=== PATIENT | female | born 1970 | race Hispanic/Latino ===

== ENCOUNTER 2019-10-28 21:43 | Emergency (ER) | payer SELFPAY ==
--- NOTE | 2019-10-28 23:40 | EDPHYS ---
Physician Documentation [facility] Name: Maine Stewart Age: 49 yrs Sex: Female : 1970 Arrival Date: 10/28/2019 Time: 21:49 Bed 3 Private MD: ED Physician Finn Lopez HPI: 10/27 21:53 This 49 yrs old Female presents to ER via Ambulatory with complaints of Covid jmm Symptoms. 21:53 The patient or guardian reports cough, described as moderate. Onset: The jmm symptoms/episode began/occurred gradually, 5 day(s) ago. Modifying factors: The symptoms are alleviated by nothing. the symptoms are aggravated by nothing. Associated signs and symptoms: Pertinent positives: fever. This is a 49 year old female with no chronic medical conditions that presents to the ED with complaints of cough, congestion, shortness of breath beginning approx 5 days ago. Denies vomiting or diarrhea. . 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 - Social history:: Smoking status: Patient denies any tobacco usage or history of. ROS: 21:53 Abdomen/GI: Negative for abdominal pain, nausea, vomiting, diarrhea, and constipation, jmm Neuro: Negative for headache, weakness, numbness, tingling, and seizure. 21:53 Constitutional: Positive for fever. 21:53 Respiratory: Positive for cough, shortness of breath. 21:53 All other systems are negative. Exam: 21:53 Constitutional: This is a well developed, well nourished patient who is awake, alert, jmm and in no acute distress. Head/Face: atraumatic. Eyes: EOMI, no conjunctival erythema appreciated ENT: Moist Mucus Membranes Neck: Trachea midline, Supple Chest/axilla: Normal chest wall appearance and motion. Cardiovascular: Regular rate and rhythm. No edema appreciated Respiratory: Normal respirations, no respiratory distress appreciated Abdomen/GI: Non distended, soft Back: Normal ROM Skin: General appearance color normal MS/ Extremity: Moves all extremities, no obvious deformities appreciated, no edema noted to the lower extremities Neuro: Awake and alert, normal gait Psych: Behavior is normal, Mood is normal, Patient is cooperative and pleasant Vital Signs: 21:53 BP 166 / 80; Pulse 81; Resp 15 S; Temp 97.7(TE); Pulse Ox 100% on NC; Weight 58.97 kg ca1 (R); Height 5 ft. 2 in. (157.48 cm) (R); 23:56 BP 157 / 87; Pulse 76; Resp 16; Temp 98; Pulse Ox 99% on R/A; rv 21:53 Body Mass Index 23.78 (58.97 kg, 157.48 cm) ca1 MDM: 23:19 Patient medically screened. [facility] 23:39 Data reviewed: vital signs, nurses notes. Counseling: I had a detailed discussion with otis the patient and/or guardian regarding: the historical points, exam findings, and any diagnostic results supporting the discharge/admit diagnosis, the need for outpatient follow up, to return to the emergency department if symptoms worsen or persist or if there are any questions or concerns that arise at home. 23:59 ED course: Patient is alert and non toxic in appearance in the ED. No signs of resp jmm distress. VS wnl. Patient given strict return precautions. Patient understood and agrees with the plan of care. . 10/27 23:20 Order name: CITLALI otis Administered Medications: No medications were administered Disposition: 10/28 01:40 Co-signature as Attending Physician, Finn Lopez MD. [email or web address] Disposition: 10/28/19 23:40 Discharged to Home. Impression: Viral Respiratory Illness. - Condition is Stable. - Discharge Instructions: [id number]. - Medication Reconciliation Form, Thank You Letter, Antibiotic Education, Prescription Opioid Use, Work release form form. - Follow up: Private Physician; When: 2 - 3 days; Reason: Recheck today's complaints, Continuance of care, Re-evaluation by your physician. Signatures: Dispatcher [employer] EDMS Aric Gaines PA PA jmm Vicente, Ronaldo, RN RN rv Maria L Stovall RN RN ca1 Finn Lopez MD MD [email or web address] Corrections: (The following items were deleted from the chart) 10/27 23:56 23:40 10/28/2019 23:40 Discharged to Home. Impression: Viral Respiratory Illness. rv Condition is Stable. Forms are Medication Reconciliation Form, Thank You Letter, Antibiotic Education, Prescription Opioid Use. Follow up: Private Physician; When: 2 - 3 days; Reason: Recheck today's complaints, Continuance of care, Re-evaluation by your physician. otis
--- NOTE | 2019-10-28 23:40 | ER ---
Nurse's Notes [facility] Name: Maine Stewart Age: 49 yrs Sex: Female : 1970 Arrival Date: 10/28/2019 Time: 21:49 Bed 3 Private MD: Diagnosis: Viral Respiratory Illness Presentation: 10/27 21:53 Chief complaint: Patient states: Sick since Thursday. SOB, no sense of smell and taste, ca1 cough, headache and body aches. Fever last night Htemp 101.4F. Coronavirus screen: Patient reports a cough. Patient reports shortness of breath or difficulty breathing. Patient reports a measured and/or subjective temperature greater than 100.4F. Patient denies travel on a cruise ship or to a country the [facility] currently lists as an affected area. Patient denies contact with known and/or suspected case of COVID-19. Surgical mask in place. Instructed on keeping mask at all times and keep 6 feet distance from other people in the lobby. Verbalized understanding. Ebola Screen: Patient negative for fever greater than or equal to 101.5 degrees Fahrenheit, and additional compatible Ebola Virus Disease symptoms Patient denies exposure to infectious person. Patient denies travel to an Ebola-affected area in the 21 days before illness onset. No symptoms or risks identified at this time. Initial Sepsis Screen: Does the patient meet any 2 criteria? No. Patient's initial sepsis screen is negative. Does the patient have a suspected source of infection? No. Patient's initial sepsis screen is negative. Risk Assessment: Do you want to hurt yourself or someone else? Patient reports no desire to harm self or others. Onset of symptoms was October 28, 2019. 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 - Social history:: Smoking status: Patient denies any tobacco usage or history of. Screenin:07 Abuse screen: Denies threats or abuse. Denies injuries from another. Nutritional rv screening: No deficits noted. Tuberculosis screening: No symptoms or risk factors identified. Fall Risk None identified. Assessment: 23:07 General: Appears comfortable, Behavior is calm, cooperative. Pain: Denies pain. Neuro: rv Level of Consciousness is awake, alert, obeys commands, Oriented to person, place, time, situation. Cardiovascular: Patient's skin is warm and dry. Respiratory: Airway is patent Respiratory effort is even, unlabored, Respiratory pattern is regular, symmetrical, Breath sounds are clear bilaterally. Derm: Skin is intact. Vital Signs: 21:53 BP 166 / 80; Pulse 81; Resp 15 S; Temp 97.7(TE); Pulse Ox 100% on NC; Weight 58.97 kg ca1 (R); Height 5 ft. 2 in. (157.48 cm) (R); 23:56 BP 157 / 87; Pulse 76; Resp 16; Temp 98; Pulse Ox 99% on R/A; rv 21:53 Body Mass Index 23.78 (58.97 kg, 157.48 cm) ca1 ED Course: 21:49 Patient arrived in ED. ds1 21:55 Triage completed. ca1 21:55 Arm band placed on right wrist. ca1 22:50 Aric Gaines PA is PHCP. [facility] 22:50 Finn Lopez MD is Attending Physician. [facility] 23:07 Nehemiah Valentin, CARLITOS is Primary Nurse. rv 23:08 Patient has correct armband on for positive identification. Pulse ox on. NIBP on. rv 23:56 Assist provider with bone marrow aspiration. Patient did not have IV access during this emergency room visit. Administered Medications: No medications were administered Outcome: 23:40 Discharge ordered by . [facility] 23:56 Discharged to home ambulatory. rv 23:56 Condition: good 23:56 Discharge instructions given to patient, Instructed on discharge instructions, follow up and referral plans. Demonstrated understanding of instructions, follow-up care. 23:56 Patient left the ED. rv Addendum: 11/02/2019 10:41 Addendum: COVID-19 Result: Positive result giiven to ED physician to notify pt. francie salazar Physician: Oli Ramos MD Physician was able to contact pt and pt was notified of positive COVID-19 swab result. Physician answered pt questions. Signatures: Lara Leigh, RN RN dm5 Aric Gaines PA PA jmm Sanford, Demi ds1 Nehemiah Valentin, RN RN rv AcobMaria L, RN RN ca1
[2019-10-29 00:33] VITALS: BP 157/87; TEMP 98; O2SAT 99
== END 2019-10-28 23:56 | disposition home or self-care (01) ==
LOC: ER 21:43
DX: U07.1 COVID-19 (principal); J98.8 Other specified respiratory disorders
CPT/HCPCS: 99284; U0001

== ENCOUNTER 2019-12-31 21:27 | Emergency (ER) | payer SELFPAY ==
[2019-12-31 22:02] LABS: Urine Blood TRACE (NEG); Urine Glucose NEGATIVE (NEG); Urine Protein NEGATIVE (NEG)
[2019-12-31 22:46] LABS: Absolute Lymphocytes (CBC) 1.5 K/uL (0.7-4.9); Basophils % 0.4 % (0-1.3); Hematocrit 27.8 % (36.0-45.0); RBC Red Blood Cell Count 4.02 M/uL (3.86-4.86)
[2019-12-31 22:54] LABS: Protime INR 0.99
[2019-12-31 23:06] LABS: ALT/SGPT 24 U/L (12-78); AST/SGOT 26 U/L (15-37); Albumin 3.2 g/dL (3.4-5.0); Alkaline Phosphatase 97 U/L (45-117); BUN Blood Urea Nitrogen 13 mg/dL (7-18); Bicarbonate 22 mmol/L (21-32); Bilirubin Direct < 0.1 mg/dL (0-0.2); Bilirubin Total 0.2 mg/dL (0.2-1.0); Glucose Level 121 mg/dL (74-106); Magnesium 2.1 mg/dL (1.8-2.4); NT PRO-BNP 54 pg/mL (<125); Potassium 3.7 mmol/L (3.5-5.1); Sodium Level 140 mmol/L (136-145); Troponin (Emerg Dept Use Only) < 0.02 ng/mL (0.0-0.045)
--- NOTE | 2020-01-01 00:21 | ER ---
Nurse's Notes [facility] Name: Maine Stewart Age: 49 yrs Sex: Female : 1970 Arrival Date: 12/31/2019 Time: 21:29 Bed 7 Private MD: Diagnosis: Dyspnea;Anemia, unspecified-chronic Presentation: 12/30 21:32 Chief complaint: Patient states: SOB for 1 month. Had covid positive test 2 months ago. ll1 Negative covid test last night. No fever. Coronavirus screen: Client denies travel out of the [place] in the last 14 days. shortness of breath, Client presents with at least one sign or symptom that may indicate coronavirus-19. Standard/surgical mask placed on the client. The client reports previous COVID testing was negative. Ebola Screen: Patient denies travel to an Ebola-affected area in the 21 days before illness onset. Initial Sepsis Screen: Does the patient meet any 2 criteria? No. Patient's initial sepsis screen is negative. Risk Assessment: Do you want to hurt yourself or someone else? Patient reports no desire to harm self or others. Onset of symptoms was November 30, 2019. 21:32 Method Of Arrival: Ambulatory ll1 21:32 Acuity: BULMARO 3 ll1 Historical: - Allergies: 21:35 Aspirin; ll1 - PSHx: 21:35 None; ll1 - Immunization history:: Flu vaccine is up to date. - Social history:: Smoking status: Patient denies any tobacco usage or history of. Patient/guardian denies using alcohol, street drugs. Screenin:45 Abuse screen: Denies threats or abuse. Nutritional screening: No deficits noted. jb4 Tuberculosis screening: No symptoms or risk factors identified. Fall Risk None identified. Assessment: 21:45 General: Appears in no apparent distress. uncomfortable, Behavior is calm, cooperative. jb4 Pain: Denies pain. Neuro: Level of Consciousness is awake, alert, obeys commands, Oriented to person, place, time, situation. Cardiovascular: Patient's skin is warm and dry. Rhythm is sinus rhythm. Respiratory: Airway is patent Respiratory effort is even, unlabored, Respiratory pattern is regular, symmetrical, Breath sounds are clear bilaterally. GI: No signs and/or symptoms were reported involving the gastrointestinal system. : No signs and/or symptoms were reported regarding the genitourinary system. EENT: No signs and/or symptoms were reported regarding the EENT system. Derm: Skin is intact, Skin is pink, warm \T\ dry. Musculoskeletal: Circulation, motion, and sensation intact. Range of motion: intact in all extremities. 23:00 Reassessment: Patient appears in no apparent distress at this time. Patient and/or jb4 family updated on plan of care and expected duration. Pain level reassessed. Patient is alert, oriented x 3, equal unlabored respirations, skin warm/dry/pink. 12/31 00:19 Reassessment: Patient appears in no apparent distress at this time. Patient and/or jb4 family updated on plan of care and expected duration. Pain level reassessed. Patient is alert, oriented x 3, equal unlabored respirations, skin warm/dry/pink. Provider at the bedside. 00:29 Reassessment: Patient appears in no apparent distress at this time. Patient and/or jb4 family updated on plan of care and expected duration. Pain level reassessed. Patient is alert, oriented x 3, equal unlabored respirations, skin warm/dry/pink. PT verbalized understanding of d/c and follow up instructions. Denies questions or concerns. Ambulated out of ED with steady gait. Vital Signs: 12/30 21:32 BP 158 / 100; Pulse 87; Resp 18; Temp 98.0; Pulse Ox 100% ; Pain 0/10; ll1 22:30 BP 143 / 91; Pulse 82; Resp 16; Pulse Ox 100% on R/A; jb4 12/31 00:25 BP 102 / 70; Pulse 86; Resp 18; Pulse Ox 98% on R/A; jb4 ED Course: 12/30 21:29 Patient arrived in ED. mr 21:34 Triage completed. ll1 21:35 Arm band placed on Patient placed in an exam room, on a stretcher. ll1 21:36 Brittni Marsh FNP-C is [facility]. kb 21:36 Lei Ruiz MD is Attending Physician. kb 21:39 Alex Banks, CARLITOS is Primary Nurse. jb4 21:45 Patient has correct armband on for positive identification. Bed in low position. Call jb4 light in reach. Side rails up X 1. operations analyst on. Pulse ox on. NIBP on. 22:14 XRAY Chest (1 view) In Process Unspecified. EDMS 22:30 Initial lab(s) drawn, by me, sent to lab. Inserted saline lock: 20 gauge in right jb4 antecubital area, using aseptic technique. Blood collected. 23:41 CT Chest For PE Angio In Process Unspecified. EDMS 09 00:25 No provider procedures requiring assistance completed. IV discontinued, intact, jb4 bleeding controlled, No redness/swelling at site. Pressure dressing applied. Administered Medications: No medications were administered Outcome: 00:20 Discharge ordered by . kb 00:25 Discharged to home ambulatory. jb4 00:25 Condition: stable 00:25 Discharge instructions given to patient, Instructed on discharge instructions, follow up and referral plans. Demonstrated understanding of instructions, follow-up care. 00:31 Patient left the ED. jb4 Signatures: Dispatcher [employer] EDKS Brittni Marsh, FIXED INCOME TRADING VICE PRESIDENT-C FIXED INCOME TRADING VICE PRESIDENT-Danitza Cano Alex Banks, RN RN jb4 Carlos Shields RN RN ll1
--- NOTE | 2020-01-01 00:21 | EDPHYS ---
Physician Documentation [facility] Name: Maine Stewart Age: 49 yrs Sex: Female : 1970 Arrival Date: 12/31/2019 Time: 21:29 Bed 7 Private MD: ED Physician Lei Ruiz HPI: 12/30 22:01 This 49 yrs old Female presents to ER via Ambulatory with complaints of kb Breathing Difficulty. 22:01 The patient has shortness of breath at rest. Onset: The symptoms/episode began/occurred kb 2 month(s) ago. Duration: The symptoms are continuous. The patient's shortness of breath is aggravated by nothing, is alleviated by nothing. Associated signs and symptoms: Pertinent positives: anxiety, palpitations. Severity of symptoms: At their worst the symptoms were moderate in the emergency department the symptoms are unchanged. The patient has not experienced similar symptoms in the past. The patient has not recently seen a physician. Pt reports she was positive for COVID 2 months ago and she has had shortness of breath since then. Today she also had palpitations that she believes were do to anxiety, but wanted to come get checked out.. Historical: - Allergies: 21:35 Aspirin; ll1 - PSHx: 21:35 None; ll1 - Immunization history:: Flu vaccine is up to date. - Social history:: Smoking status: Patient denies any tobacco usage or history of. Patient/guardian denies using alcohol, street drugs. ROS: 22:02 Constitutional: Negative for fever, chills, and weight loss, Neck: Negative for injury, kb pain, and swelling, Abdomen/GI: Negative for abdominal pain, nausea, vomiting, diarrhea, and constipation, Back: Negative for injury and pain, MS/Extremity: Negative for injury and deformity, Skin: Negative for injury, rash, and discoloration, Neuro: Negative for headache, weakness, numbness, tingling, and seizure. 22:02 Cardiovascular: Positive for palpitations, Negative for chest pain, edema, orthopnea, paroxysmal nocturnal dyspnea. 22:02 Respiratory: Positive for shortness of breath, Negative for cough, dyspnea on exertion, hemoptysis, orthopnea, pleurisy, sputum production, wheezing. Exam: 22:02 Constitutional: This is a well developed, well nourished patient who is awake, alert, kb and in no acute distress. Head/Face: Normocephalic, atraumatic. Chest/axilla: Normal chest wall appearance and motion. Nontender with no deformity. No lesions are appreciated. Cardiovascular: Regular rate and rhythm with a normal S1 and S2. No gallops, murmurs, or rubs. Normal PMI, no JVD. No pulse deficits. Respiratory: Lungs have equal breath sounds bilaterally, clear to auscultation and percussion. No rales, rhonchi or wheezes noted. No increased work of breathing, no retractions or nasal flaring. Abdomen/GI: Soft, non-tender, with normal bowel sounds. No distension or tympany. No guarding or rebound. No evidence of tenderness throughout. Skin: Warm, dry with normal turgor. Normal color with no rashes, no lesions, and no evidence of cellulitis. MS/ Extremity: Pulses equal, no cyanosis. Neurovascular intact. Full, normal range of motion. Neuro: Awake and alert, GCS 15, oriented to person, place, time, and situation. Cranial nerves II-XII grossly intact. Motor strength 5/5 in all extremities. Sensory grossly intact. Cerebellar exam normal. Normal gait. 22:24 ECG was reviewed by the Attending Physician. Vital Signs: 21:32 BP 158 / 100; Pulse 87; Resp 18; Temp 98.0; Pulse Ox 100% ; Pain 0/10; ll1 22:30 BP 143 / 91; Pulse 82; Resp 16; Pulse Ox 100% on R/A; jb4 12/31 00:25 BP 102 / 70; Pulse 86; Resp 18; Pulse Ox 98% on R/A; jb4 MDM: 12/30 21:36 Patient medically screened. 22:03 Data reviewed: vital signs, nurses notes. Data interpreted: Pulse oximetry: on room air kb is 100 %. Interpretation: normal. 12/31 00:16 Counseling: I had a detailed discussion with the patient and/or guardian regarding: the kb historical points, exam findings, and any diagnostic results supporting the discharge/admit diagnosis, lab results, radiology results, the need for outpatient follow up, a family practitioner, to return to the emergency department if symptoms worsen or persist or if there are any questions or concerns that arise at home. 12/30 21:44 Order name: Basic Metabolic Panel; Complete Time: 23:18 kb 12/30 21:44 Order name: CBC with Diff; Complete Time: 22:47 kb 12/30 21:44 Order name: LFT's; Complete Time: 23:18 kb 12/30 21:44 Order name: Magnesium; Complete Time: 23:18 kb 12/30 21:44 Order name: NT PRO-BNP; Complete Time: 23:18 kb 12/30 21:44 Order name: PT-INR; Complete Time: 23:04 kb 12/30 21:44 Order name: Troponin (emerg Dept Use Only); Complete Time: 23:18 kb 12/30 21:44 Order name: XRAY Chest (1 view) kb 12/30 21:44 Order name: EKG; Complete Time: 21:45 kb 12/30 21:44 Order name: Cardiac monitoring; Complete Time: 22:56 kb 12/30 21:44 Order name: D-Dimer; Complete Time: 23:04 kb 12/30 21:57 Order name: Urine Dipstick--Ancillary (enter results); Complete Time: 22:03 tt3 12/30 21:57 Order name: Urine --Ancillary (enter results); Complete Time: 22:03 tt3 12/30 23:04 Order name: CT Chest For PE Angio kb 12/30 21:44 Order name: EKG - Nurse/Tech; Complete Time: 22:56 kb 12/30 21:44 Order name: IV Saline Lock; Complete Time: 23:10 kb 12/30 21:44 Order name: Labs collected and sent; Complete Time: 23:10 kb 12/30 21:44 Order name: O2 Per Protocol; Complete Time: 23:10 kb 12/30 21:44 Order name: O2 Sat Monitoring; Complete Time: 23:10 kb EC/12 22:24 Rate is 79 beats/min. Rhythm is regular. QRS Monson is Normal. MD interval is normal at kb 126 msec. QRS interval is normal at 142 msec. QT interval is normal at 410 msec. Administered Medications: No medications were administered Disposition: 12/31 04:46 Co-signature as Attending Physician, Lei Ruiz MD. rn Disposition: 01/01/20 00:20 Discharged to Home. Impression: Dyspnea, Anemia, unspecified - chronic. - Condition is Stable. - Discharge Instructions: Anemia, Nonspecific, Shortness of Breath, [id number], Panic Attacks, [id number]. - Medication Reconciliation Form, Thank You Letter, Antibiotic Education, Prescription Opioid Use form. - Follow up: Emergency Department; When: As needed; Reason: Worsening of condition. Follow up: Private Physician; When: 2 - 3 days; Reason: Recheck today's complaints, Continuance of care, Re-evaluation by your physician. Signatures: Dispatcher [employer] EDSD Brittni Marsh, MARISA-C EXPERIMENTAL ASSEMBLER-CkLei Jacob MD MD rn Bryson, James, RN RN jb4 Carlos Shields RN RN ll1 Corrections: (The following items were deleted from the chart) 00:31 00:20 01/01/2020 00:20 Discharged to Home. Impression: Dyspnea; Anemia, unspecified - jb4 chronic. Condition is Stable. Forms are Medication Reconciliation Form, Thank You Letter, Antibiotic Education, Prescription Opioid Use. Follow up: Emergency Department; When: As needed; Reason: Worsening of condition. Follow up: Private Physician; When: 2 - 3 days; Reason: Recheck today's complaints, Continuance of care, Re-evaluation by your physician. kb
[2020-01-01 01:13] VITALS: TEMP 98
[2020-01-01 01:15] VITALS: BP 102/70; O2SAT 98
--- NOTE | 2020-01-01 09:44 | EKG ---
Test Date: 2019-12-31 Test Time: 22:21:08 Wireless Field Technician: PASCALE MEASUREMENT RESULTS: Intervals: Rate: 79 NC: 126 QRSD: 142 QT: 410 QTc: 470 [place]: P: -16 NC: 126 QRS: 88 T: 3 INTERPRETIVE STATEMENTS: Normal sinus rhythm Right bundle branch block Abnormal ECG No previous ECG available for comparison Electronically Signed On 01-01-20 09:43:59 CDT by Dev Donald
--- NOTE | 2020-01-01 11:44 | RAD REPORT ---
EXAM DESCRIPTION: RAD - Chest Single View - 12/31/2019 10:14 pm CLINICAL HISTORY: DYSPNEA Chest pain. COMPARISON: Chest For Pe Angio dated 12/31/2019 FINDINGS: Portable technique limits examination quality. The lungs are grossly clear. The heart is normal in size. No displaced fractures. IMPRESSION: No acute intrathoracic process suspected.
--- NOTE | 2020-01-01 20:48 | RAD REPORT ---
EXAM DESCRIPTION: CT Angiography Chest With Intravenous Contrast CLINICAL HISTORY: The patient is 49 years old and is Female; dyspnea TECHNIQUE: Axial computed tomographic angiography images of the chest with intravenous contrast. S agittal and coronal reformatted images were created and reviewed. This CT exam was performed using one or more of the following dose reduction techniques: automated exposure control, adjustment of t he mA and/or kV according to patient size, and/or use of iterative reconstruction technique. MIP reconstructed images were created and reviewed. COMPARISON: No relevant prior studies available. FINDINGS: PULMONARY ARTERIES: There are no obvious filling defects identified within the pulmonary arteries to suggest pulmonary embolism. AORTA: No acute findings. No thoracic aortic aneurysm. LUNGS: Unremarkable. No mass. No consolidation. PLEURAL SPACE: Unremarkable. No significant effusion. No pneumothorax. HEART: Unremarkable. No cardiomegaly. No significant pericardial effusion. No evidence of RV dysfunction. BONES/JOINTS: No acute fracture. No dislocation. SOFT TISSUES: Unremarkable. LYMPH NODES: Unremarkable. No enlarged lymph nodes. KIDNEYS AND URETERS: Partial visualization of a large 8.4 cm right renal cyst is present. IMPRESSION: No evidence of pulmonary embolism. Electronically signed by: Genesis Ash MD 12/31/2019 11:48 PM CDT Due to temporary technical issues with the PACS/Fluency reporting system, reports are being signed by the in house radiologist without review as a courtesy to ensure prompt reporting. The interpreting r adiologist is fully responsible for the content of the report.
== END 2020-01-01 00:31 | disposition home or self-care (01) ==
LOC: ER 21:27
DX: R06.00 Dyspnea, unspecified (principal); D64.9 Anemia, unspecified; Z86.19 Personal history of other infectious and parasitic diseases; Z88.6 Allergy status to analgesic agent
CPT/HCPCS: 36415; 71045; 71275; 80048; 80076; 81003; 81025; 83735; 83880; 84484; 85025; 85379; 85610; 93005; 99284; Q9967

== ENCOUNTER 2020-06-20 13:27 | Emergency (ER) | payer SELFPAY ==
[2020-06-20 15:50] LABS: Absolute Lymphocytes (CBC) 1.7 K/uL (0.7-4.9); Basophils % 0.5 % (0-1.3); Hematocrit 16.9 % (36.0-45.0); Lymphocytes % 26.6 % (15.3-44.8); MPV 8.1 fL (7.6-11.3); RBC Red Blood Cell Count 2.16 M/uL (3.86-4.86)
[2020-06-20 16:12] LABS: BUN Blood Urea Nitrogen 12 mg/dL (7-18); Bicarbonate 25 mmol/L (21-32); Glucose Level 90 mg/dL (74-106); Sodium Level 141 mmol/L (136-145)
[2020-06-20 18:13] LABS: Urine Blood 2+ (NEG); Urine Glucose NEGATIVE (NEG); Urine Protein NEGATIVE (NEG); Urine pH 7.5 (5.0-7.0)
--- NOTE | 2020-06-20 18:51 | ER ---
Nurse's Notes [facility] Name: Maine Stewart Age: 50 yrs Sex: Female : 1970 Arrival Date: 06/20/2020 Time: 13:29 Bed 14 Private MD: Diagnosis: Abnormal uterine and vaginal bleeding, unspecified;Anemia Presentation: 06/20 14:03 Chief complaint: Patient states: Heavy vaginal bleeding with blood clots for 2 weeks. + ll1 weak, pale, dizzy for 4 days. Coronavirus screen: Client denies travel out of the [place] in the last 14 days. At this time, the client does not indicate any symptoms associated with coronavirus-19. Ebola Screen: Patient denies travel to an Ebola-affected area in the 21 days before illness onset. Initial Sepsis Screen: Does the patient meet any 2 criteria? No. Patient's initial sepsis screen is negative. Does the patient have a suspected source of infection? No. Patient's initial sepsis screen is negative. Risk Assessment: Do you want to hurt yourself or someone else? Patient reports no desire to harm self or others. Onset of symptoms was June 09, 2020. 14:03 Method Of Arrival: Ambulatory ll1 14:03 Acuity: BULMARO 3 ll1 Historical: - Allergies: 14:05 Aspirin; ll1 - PMHx: 14:05 Anemia; ll1 - PSHx: 14:05 None; ll1 - Immunization history:: Flu vaccine is up to date. - Social history:: Smoking status: Patient denies any tobacco usage or history of. Screenin:30 Abuse screen: Denies threats or abuse. Denies injuries from another. Nutritional dm14 screening: No deficits noted. Tuberculosis screening: No symptoms or risk factors identified. Fall Risk None identified. Assessment: 15:41 General: Appears in no apparent distress. comfortable, Behavior is calm, cooperative, dm14 appropriate for age. Pain: Denies pain. : Reports vaginal bleeding that is heavy flow. 18:21 : No deficits noted. dm14 19:00 General: Appears in no apparent distress. comfortable, Behavior is calm, cooperative, em appropriate for age, Reports fatigue for. Pain: Complains of pain in head. Neuro: Level of Consciousness is awake, alert, obeys commands, Oriented to person, place, time, situation. Cardiovascular: Capillary refill < 3 seconds Patient's skin is warm and dry. Respiratory: Reports shortness of breath at rest on exertion Airway is patent Respiratory effort is even, unlabored, Respiratory pattern is regular, symmetrical. GI: Reports nausea. : Reports vaginal bleeding that is heavy flow. Derm: Skin is intact, is thin, Skin is pink, warm \T\ dry. Musculoskeletal: Range of motion: intact in all extremities. 19:10 Reassessment: blood transfusion initiated, double checked blood products with amarjit James RN, instructed pt to verbalize any chest pain, shortness of breath, chills or any other symptoms, pt verbalized understanding. 20:14 Reassessment: report given to CARLITOS Ramirez at [facility], pending EMS transportation. em Vital Signs: 14:03 BP 128 / 79; Pulse 89; Resp 17; Temp 97.8; Pulse Ox 100% ; Weight 62.14 kg; Height 5 ll1 ft. 2 in. (157.48 cm); Pain 6/10; 15:30 BP 113 / 76; Pulse 80; Resp 16; Temp 97.9; Pulse Ox 100% ; dm14 17:00 BP 112 / 72; Pulse 76; Resp 18; Pulse Ox 100% ; dm14 19:00 BP 124 / 81; Pulse 76; Resp 16; Pulse Ox 100% ; dm14 19:10 em 14:03 Body Mass Index 25.06 (62.14 kg, 157.48 cm) ll1 19:10 please see transfusion flow sheet for VS em ED Course: 13:29 Patient arrived in ED. am2 14:04 Triage completed. ll1 14:05 Arm band placed on. ll1 15:18 Aric Gaines PA is PHCP. [facility] 15:18 Chuck Claros MD is Attending Physician. [facility] 15:33 Erika Walter, CARLITOS is Primary Nurse. dm14 15:33 Initial lab(s) drawn, by me, sent to lab. T\T\S collected, blood band applied to patient. jp3 Inserted saline lock: 20 gauge in right antecubital area, using aseptic technique. Blood collected. Patient maintains SpO2 saturation greater than 95% on room air. 15:41 Bed in low position. Call light in reach. Side rails up X 1. Verbal reassurance given. jp3 Pulse ox on. NIBP on. 16:01 Notified Nurse Practitioner and/or Physician Geospatial Information Scientist of a critical lab result(s), HGB sv 5.6, HCT 16.9. YOUNG Blum informed. 16:12 Urine --Ancillary (enter results) Sent. sv 16:12 Urine Dipstick--Ancillary (enter results) Sent. sv 16:12 CBC with Diff Sent. sv 16:12 Type And Screen Sent. sv 16:12 BMP Sent. sv 16:12 Type and Screen Sent. sv 21:24 No provider procedures requiring assistance completed. Patient admitted, IV remains in em place. Administered Medications: 19:05 Drug: Tylenol 650 mg Route: PO; em 21:25 Follow up: Response: No adverse reaction em 19:22 Drug: Benadryl 12.5 mg Route: IVP; Site: left hand; em 21:25 Follow up: Response: No adverse reaction em 19:23 Drug: Solu-CORTEF 50 mg Route: IVP; Site: left hand; em 21:25 Follow up: Response: No adverse reaction em Outcome: 18:51 ER care complete, transfer ordered by . otis 21:24 Transferred by ground EMS to [facility], Transfer form em completed. X-rays sent w/ patient. 21:24 Condition: stable 21:24 Instructed on the need for admit, Demonstrated understanding of instructions. 21:25 Patient left the ED. em Signatures: Marguerite Angela RN Aric Carlson PA PA jmm Munoz, Edgar, RN Gisella Shah Jacob jp3 Carlos Shields RN RN ll1 Erika Walter RN RN dm14 Corrections: (The following items were deleted from the chart) 15:51 15:41 : Reports vaginal bleeding that is with clots, heavy flow dm14 dm14
--- NOTE | 2020-06-20 18:51 | RAD REPORT ---
EXAM DESCRIPTION: US - Pelvis Complete - 06/20/2020 5:49 pm CLINICAL HISTORY: Excessive vaginal bleeding COMPARISON: None FINDINGS: The uterus measures 11 x 5 x 7cm. The endometrial stripe measures 8 millimeters. A fibroid is not seen. The ovaries are normal in size and echotexture. 3.5 centimeter right ovarian cyst. Blood flow is pres ent to the ovaries The right and left adnexa unremarkable No significant free fluid is seen. IMPRESSION: 3.5 centimeter right ovarian cyst without significant free fluid
--- NOTE | 2020-06-20 18:52 | EDPHYS ---
Physician Documentation [facility] Name: Maine Stewart Age: 50 yrs Sex: Female : 1970 Arrival Date: 06/20/2020 Time: 13:29 Bed 14 Private MD: ED Physician Chuck Claros HPI: 06/20 15:18 This 50 yrs old Female presents to ER via Ambulatory with complaints of jmm Vaginal Bleeding. 15:18 The patient presents with vaginal bleeding that is. Onset: The symptoms/episode jmm began/occurred gradually. Modifying factors: The symptoms are alleviated by nothing, the symptoms are aggravated by nothing. Associated signs and symptoms: Pertinent negatives: diarrhea. 16:02 This is a 50 year old female with a history of anemia that presents to the ED with jmm complaints of heavy vaginal bleeding over the past 2 weeks with increased weakness. Denies fever, dysuria. . Historical: - Allergies: 14:05 Aspirin; ll1 - PMHx: 14:05 Anemia; ll1 - PSHx: 14:05 None; ll1 - Immunization history:: Flu vaccine is up to date. - Social history:: Smoking status: Patient denies any tobacco usage or history of. ROS: 16:02 Cardiovascular: Negative for chest pain, palpitations, and edema, Respiratory: Negative jmm for shortness of breath, cough, wheezing, and pleuritic chest pain. 16:02 Constitutional: Positive for fatigue. 16:02 : Positive for vaginal bleeding. 16:02 All other systems are negative. Exam: 16:02 Constitutional: This is a well developed, well nourished patient who is awake, alert, jmm and in no acute distress. Head/Face: atraumatic. Eyes: EOMI, no conjunctival erythema appreciated ENT: Moist Mucus Membranes Neck: Trachea midline, Supple Chest/axilla: Normal chest wall appearance and motion. Cardiovascular: Regular rate and rhythm. No edema appreciated Respiratory: Normal respirations, no respiratory distress appreciated Abdomen/GI: Non distended, soft Back: Normal ROM 16:02 Skin: Appearance: pale. 16:02 Neuro: Orientation: is normal, Mentation: is normal, Memory: is normal. 16:02 Psych: Behavior/mood is pleasant, cooperative. Vital Signs: 14:03 BP 128 / 79; Pulse 89; Resp 17; Temp 97.8; Pulse Ox 100% ; Weight 62.14 kg; Height 5 ll1 ft. 2 in. (157.48 cm); Pain 6/10; 15:30 BP 113 / 76; Pulse 80; Resp 16; Temp 97.9; Pulse Ox 100% ; dm14 17:00 BP 112 / 72; Pulse 76; Resp 18; Pulse Ox 100% ; dm14 19:00 BP 124 / 81; Pulse 76; Resp 16; Pulse Ox 100% ; dm14 19:10 em 14:03 Body Mass Index 25.06 (62.14 kg, 157.48 cm) ll1 19:10 please see transfusion flow sheet for VS em MDM: 15:18 Patient medically screened. [facility] 18:49 Data reviewed: vital signs, nurses notes. Counseling: I had a detailed discussion with otis the patient and/or guardian regarding: the historical points, exam findings, and any diagnostic results supporting the discharge/admit diagnosis, lab results, the need to transfer to another facility. ED course: I called Dr. Flores twice with no answer over a 1 hour peroid with no response. I also left a detailed message. I discussed the patient with Dr. Enciso whom accepted the transfer. . 06/20 15:21 Order name: CBC with Diff [facility] 06/20 15:21 Order name: Type And Screen [facility] 06/20 15:21 Order name: BMP [facility] 06/20 15:22 Order name: CBC with Automated Diff; Complete Time: 16:04 [facility] 06/20 15:22 Order name: Type and Screen [facility] 06/20 16:06 Order name: Urine Dipstick--Ancillary (enter results) [facility] 06/20 16:06 Order name: Urine --Ancillary (enter results) [facility] 06/20 16:12 Order name: Basic Metabolic Panel; Complete Time: 16:20 [facility] 06/20 16:51 Order name: US Pelvis Complete [facility] 06/20 17:35 Order name: ABO/RH no charge; Complete Time: 18:08 [facility] 06/20 18:13 Order name: Urine --Ancillary; Complete Time: 18:15 [facility] 06/20 18:13 Order name: Urine Dipstick-Ancillary; Complete Time: 18:15 [facility] 06/20 18:53 Order name: US; Complete Time: 18:56 [facility] 06/20 15:21 Order name: Saline Lock; Complete Time: 15:41 [facility] 06/20 15:21 Order name: Urine Dipstick-Ancillary (obtain specimen); Complete Time: 16:02 [facility] 06/20 15:21 Order name: Urine Test (obtain specimen); Complete Time: 16:02 [facility] 06/20 16:01 Order name: Pelvic Exam Setup; Complete Time: 19:32 [facility] Administered Medications: 19:05 Drug: Tylenol 650 mg Route: PO; em 21:25 Follow up: Response: No adverse reaction em 19:22 Drug: Benadryl 12.5 mg Route: IVP; Site: left hand; em 21:25 Follow up: Response: No adverse reaction em 19:23 Drug: Solu-CORTEF 50 mg Route: IVP; Site: left hand; em 21:25 Follow up: Response: No adverse reaction em Disposition: 06/21 07:20 Co-signature as Attending Physician, Chuck Claros MD I agree with the assessment and kdr plan of care. Disposition: 06/20/20 18:51 Transfer ordered to [facility]. Diagnosis are Abnormal uterine and vaginal bleeding, unspecified, Anemia. - Reason for transfer: Higher level of care. - Accepting physician is Dr. Enciso. - Condition is Stable. - Problem is an acute exacerbation. - Symptoms have improved. Signatures: Dispatcher [employer] Chuck Knedall MD MD kdr Mickail, Joel, PA PA [facility] Jeremy Herman, RN RN em Carlos Shields RN RN ll1 Corrections: (The following items were deleted from the chart) 06/20 21:25 18:51 06/20/2020 18:51 Transfer ordered to [facility]. Diagnosis is Abnormal uterine em and vaginal bleeding, unspecified; Anemia. Reason for transfer: Higher level of care. Accepting physician is Dr. Enciso. Condition is Stable. Problem is an acute exacerbation. Symptoms have improved. [facility]
[2020-06-20] MEDS ORDERED: NA CHLORIDE 0.9% 500 ML ONE (19:04)
[2020-06-20] MEDS ORDERED: HYDROCORTISONE SUC 100 MG INJ ONE (19:26)
[2020-06-20] MEDS ORDERED: ACETAMINOPHEN 325 MG TABLET ONE (19:26)
[2020-06-20] MEDS ORDERED: DIPHENHYDRAMINE 50 MG/ML VIAL ONE (19:27)
[2020-06-21 10:25] VITALS: BP 124/81; TEMP 97.9; O2SAT 100
== END 2020-06-20 21:25 | disposition short-term general hospital (02) ==
LOC: ER 13:27
PROC: 30233N1 Transfusion of Nonautologous Red Blood Cells into Peripheral Vein, Percutaneous Approach (ICD-10-PCS; principal; 2020-06-20)
DX: D64.9 Anemia, unspecified (principal); Z88.6 Allergy status to analgesic agent
CPT/HCPCS: 36415; 76856; 80048; 81003; 81025; 85025; 86850; 86900; 86901; 96374; 96375; 99285; J1200; J1720; J7040; P9016

== ENCOUNTER 2020-07-13 17:18 | Emergency (ER) | payer OTHER, SELFPAY ==
--- OUTSIDE RECORDS SUMMARY | 2020-07-13 17:20 | XMS REPORT | Continuity of Care Document ---
:1970 Author Organization [facility] t Address [address] [place] [address] Care Team Providers Name Role Phone Jose Carlos Campos Attending Clinician Problems This patient has no known problems. Allergies, Adverse Reactions, Alerts This patient has no known allergies or adverse reactions. Medications This patient has no known medications. Procedures This patient has no known procedures. Encounters Start End Encounter Admission Attending Care Care Encounter Source Date/Time Date/Time Type Type Clinicians Facility Department ID 2020-07-12 2020-07-12 Telephone JOSE Powell [id number] 00:00:00 00:00:00 Millie Branch DOOR CLAMP OPERATOR [id number] [facility] [id number] MATERNAL [id number] & CHILD [address] [place] [address] Results This patient has no known results.
[2020-07-13 21:47] LABS: Absolute Lymphocytes (CBC) 2.3 K/uL (0.7-4.9); Basophils % 0.7 % (0-1.3); Lymphocytes % 28.4 % (15.3-44.8); MPV 8.7 fL (7.6-11.3); RBC Red Blood Cell Count 2.36 M/uL (3.86-4.86)
[2020-07-13 21:57] LABS: Protime INR 1.05
[2020-07-13 21:58] LABS: Hematocrit 16.9 % (36.0-45.0)
[2020-07-13 22:04] LABS: BUN Blood Urea Nitrogen 10 mg/dL (7-18); Bicarbonate 24 mmol/L (21-32); Glucose Level 93 mg/dL (74-106); Magnesium 2.1 mg/dL (1.8-2.4); Potassium 3.9 mmol/L (3.5-5.1); Sodium Level 141 mmol/L (136-145)
[2020-07-13 22:04] LABS: Urine Blood NEGATIVE (Negative); Urine Glucose NEGATIVE (Negative); Urine Protein NEGATIVE (NEG); Urine pH 8.5 (5.0-7.0)
[2020-07-13] MEDS ORDERED: ACETAMINOPHEN 500 MG TAB ONE (22:13)
[2020-07-13 23:05] LABS: Anisocytosis 2+; Blood Morphology Comment NOTED (NOT SEEN); Elliptocytes 1+; Hypochromasia 2+; Platelet Estimate ADEQ; White Blood Cell Scan OK (OK)
[2020-07-13] MEDS ORDERED: NA CHLORIDE 0.9% 250 ML ONE (23:37)
--- NOTE | 2020-07-14 04:15 | EDPHYS ---
Physician Documentation [facility] Name: Maine Stewart Age: 50 yrs Sex: Female : 1970 Arrival Date: 07/13/2020 Time: 17:44 Bed 15 Private MD: ED Physician Philly Romo HPI: 07/13 21:05 This 50 yrs old Female presents to ER via Ambulatory with complaints of cp Headache - Low HGB. 21:05 The patient complains of pain to the top of head. The patient describes the headache as cp aching. 21:05 Onset: The symptoms/episode began/occurred gradually. cp 21:05 Associated signs and symptoms: Pertinent negatives: dizziness, fever, neck stiffness, cp Photophobia sinus congestion, sinus tenderness, vomiting. Severity of symptoms: in the emergency department the pain is unchanged, despite home interventions. Patient reports history of heavy vaginal bleeding and anemia in the past. Patient reports having blood work drawn by OB this past week and being called with results today that showed anemia. Patient denies any current vaginal bleeding. Received depo shot 3 days ago. [employer] ERECTING: 07/14 04:00 LMP 07/04/2020 cr4 Historical: - Allergies: 07/13 17:48 Aspirin; ll1 - PMHx: 17:48 Anemia; ll1 - PSHx: 17:48 None; ll1 - Immunization history:: Flu vaccine is up to date. - Social history:: Smoking status: Patient denies any tobacco usage or history of. ROS: 21:10 Constitutional: Negative for fever, poor PO intake. cp 21:10 Eyes: Negative for injury, pain, redness, and discharge. cp 21:10 Cardiovascular: Negative for chest pain, edema, palpitations. 21:10 Respiratory: Positive for shortness of breath, Negative for cough, wheezing. 21:10 Abdomen/GI: Negative for abdominal pain, nausea, vomiting, and diarrhea. 21:10 : Negative for urinary symptoms, vaginal bleeding. 21:10 Neuro: Positive for headache, Negative for altered mental status, syncope, weakness. 21:10 All other systems are negative. Exam: 21:15 Constitutional: The patient appears in no acute distress, alert, awake, cp non-diaphoretic, non-toxic, well developed, well nourished. 21:15 Head/Face: Normocephalic, atraumatic. cp 21:15 Eyes: Periorbital structures: appear normal, Conjunctiva: normal, no exudate, no injection, Sclera: no appreciated abnormality, Lids and lashes: appear normal, bilaterally. 21:15 ENT: External ear(s): are unremarkable, Nose: is normal, Posterior pharynx: Airway: no evidence of obstruction, patent. 21:15 Chest/axilla: Inspection: normal, Palpation: is normal, no crepitus, no tenderness. 21:15 Cardiovascular: Rate: normal, Rhythm: regular, Edema: is not appreciated, JVD: is not appreciated. 21:15 Respiratory: the patient does not display signs of respiratory distress, Respirations: normal, no use of accessory muscles, no retractions, labored breathing, is not present, Breath sounds: are clear throughout, no decreased breath sounds, no stridor, no wheezing. 21:15 Abdomen/GI: Inspection: abdomen appears normal, Palpation: abdomen is soft and non-tender, in all quadrants. 21:15 Back: pain, is absent, ROM is normal. Vital Signs: 17:44 BP 125 / 73; Pulse 98; Resp 17; Temp 98.5; Pulse Ox 100% ; Weight 62.14 kg; Height 5 ll1 ft. 2 in. (157.48 cm); Pain 8/10; 22:00 BP 100 / 65; Pulse 70; Resp 18; Pulse Ox 100% ; Pain 4/10; cr4 23:00 BP 104 / 62; Pulse 74; Resp 18; Pulse Ox 100% ; Pain 0/10; cr4 03 00:00 BP 104 / 63; Pulse 74; Resp 15; Temp 98.6; Pulse Ox 100% ; Pain 0/10; cr4 00:20 BP 106 / 70; Pulse 67; Resp 14; Temp 97.9; Pulse Ox 100% ; Pain 0/10; cr4 02:24 BP 109 / 57; Pulse 69; Resp 16; Temp 99.1; Pulse Ox 100% ; Pain 0/10; cr4 03:25 BP 96 / 62; Pulse 67; Resp 11; Temp 99; Pulse Ox 100% ; Pain 0/10; cr4 04:09 BP 109 / 73; Pulse 63; Resp 13; Temp 99; Pulse Ox 100% ; Pain 0/10; cr4 07/13 17:44 Body Mass Index 25.06 (62.14 kg, 157.48 cm) ll1 MDM: 07/13 20:46 Patient medically screened. 07/14 01:00 Transition of care: After a detail discussion of the patient's case, care is cp transferred to Philly Romo MD. 04:14 Differential diagnosis: anemia d/t vaginal bleeding, no active bleeding, chronic ma2 anemia. Data reviewed: vital signs, nurses notes. Counseling: I had a detailed discussion with the patient and/or guardian regarding: the historical points, exam findings, and any diagnostic results supporting the discharge/admit diagnosis, the presence of at least one elevated blood pressure reading (>120/80) during this emergency department visit, the need for outpatient follow up. Response to treatment: the patient's symptoms have markedly improved after treatment. 07/13 20:57 Order name: Basic Metabolic Panel 07/13 20:57 Order name: CBC with Diff 07/13 20:57 Order name: Magnesium 07/13 20:57 Order name: PT-INR 07/13 20:57 Order name: Type And Screen 07/13 20:58 Order name: Basic Metabolic Panel [facility] 07/13 20:58 Order name: CBC with Automated Diff [facility] 07/13 21:44 Order name: Urine Dipstick--Ancillary (enter results) [facility] 07/13 21:44 Order name: Urine --Ancillary (enter results) [facility] 07/13 21:45 Order name: Urine Dipstick-Ancillary [facility] 07/13 21:45 Order name: Urine --Ancillary [facility] 07/13 21:59 Order name: CBC Smear Scan [facility] 07/13 22:34 Order name: Packed RBC Leukored [facility] 07/13 20:57 Order name: Cardiac monitoring; Complete Time: 21:58 07/13 20:57 Order name: IV Saline Lock; Complete Time: 21:36 07/13 20:57 Order name: Labs collected and sent; Complete Time: 23:12 07/13 20:57 Order name: O2 Per Protocol; Complete Time: 23:12 07/13 20:57 Order name: O2 Sat Monitoring; Complete Time: 23:12 07/13 21:25 Order name: Urine Test (obtain specimen); Complete Time: 21:42 cp 07/13 21:25 Order name: Urine Dipstick-Ancillary (obtain specimen); Complete Time: 21:42 cp 07/13 23:21 Order name: Transfuse; Complete Time: 04:19 cp Administered Medications: 07/13 21:58 Drug: Tylenol 1000 mg Route: PO; cr4 23:50 Drug: Sodium Chloride 0.9% 250 ml Route: IVPB; Site: left antecubital; cr4 07/14 04:09 Follow up: IV Status: blood transfusion finished; IV Intake: 50ml cr4 Point of Care Testing: Urine : 07/13 21:41 hCG Reading: Negative; Control Reading: Positive; jp3 Disposition: 07/14 04:15 Co-signature as Attending Physician, Philly Romo MD. ma2 05:46 Co-signature as Attending Physician, Philly Romo MD. ma2 Disposition: 07/14/20 04:15 Discharged to Home. Impression: Anemia, unspecified. - Condition is Stable. - Discharge Instructions: Anemia, Nonspecific, Blood Transfusion, Adult. - SBAR form, Medication Reconciliation Form, Thank You Letter, Antibiotic Education, Prescription Opioid Use form. - Follow up: Private Physician; When: Tomorrow; Reason: Continuance of care. Signatures: Dispatcher [employer] Judi Ritter, RN RN cr4 Oli Fairbanks PA PA cp Alzahri, Mohammad, MD MD ma2 Carlos Shields RN RN ll1 Corrections: (The following items were deleted from the chart) 04:42 04:15 07/14/2020 04:15 Discharged to Home. Impression: Anemia, unspecified. Condition cr4 is Stable. Forms are SBAR form, Medication Reconciliation Form, Thank You Letter, Antibiotic Education, Prescription Opioid Use. Follow up: Private Physician; When: Tomorrow; Reason: Continuance of care. ma2
--- NOTE | 2020-07-14 04:15 | ER ---
Nurse's Notes [facility] Name: Maine Stewart Age: 50 yrs Sex: Female : 1970 Arrival Date: 07/13/2020 Time: 17:44 Bed 15 Private MD: Diagnosis: Anemia, unspecified Presentation: 07/13 17:44 Chief complaint: Patient states: Had vaginal bleeding last week that started 07/04 for 5 ll1 days. Went to her doctor Thursday, had labs drawn. Was called today and told to come to ED for low (HGB 5.8). Was transferred to [facility] for similar episode at the beginning of this month. Coronavirus screen: Client denies travel out of the [place] in the last 14 days. At this time, the client does not indicate any symptoms associated with coronavirus-19. Ebola Screen: Patient denies travel to an Ebola-affected area in the 21 days before illness onset. Initial Sepsis Screen: Does the patient meet any 2 criteria? HR > 90 bpm. No. Patient's initial sepsis screen is negative. Does the patient have a suspected source of infection? No. Patient's initial sepsis screen is negative. Risk Assessment: Do you want to hurt yourself or someone else? Patient reports no desire to harm self or others. Onset of symptoms was July 04, 2020. 17:44 Method Of Arrival: Ambulatory ll1 17:44 Acuity: BULMARO 3 ll1 Triage Assessment: 07/14 05:03 Pain: Also complains of. cr4 05:04 Headache History: Denies prior headaches. General: Appears. cr4 05:04 Pain: Pain. cr4 05:04 Pain: Pain began. cr4 CAMPUS AMBASSADOR: 04:00 LMP 07/04/2020 cr4 Historical: - Allergies: 07/13 17:48 Aspirin; ll1 - PMHx: 17:48 Anemia; ll1 - PSHx: 17:48 None; ll1 - Immunization history:: Flu vaccine is up to date. - Social history:: Smoking status: Patient denies any tobacco usage or history of. Screenin:40 Fall Risk None identified. cr4 07/14 00:36 Abuse screen: Denies threats or abuse. Nutritional screening: No deficits noted. cr4 Tuberculosis screening: No symptoms or risk factors identified. Assessment: 07/13 21:25 General: Appears uncomfortable, well groomed, Behavior is calm, cooperative, cr4 appropriate for age. Pain: Complains of pain in reports SHAIKH. Neuro: Reports headache frontal area. Cardiovascular: Reports fatigue, shortness of breath, Denies chest pain, diaphoresis, nausea, palpitations, Heart tones S1 S2 Capillary refill < 3 seconds Rhythm is regular. Respiratory: Reports shortness of breath on exertion Airway is patent Trachea midline Respiratory effort is labored, Respiratory pattern is regular, Breath sounds are clear. GI: Patient currently denies normal bowel habits, nausea, pain, vomiting. : Denies burning with urination, incontinence, pain urinary frequency. EENT: No deficits noted. Derm: No deficits noted. Musculoskeletal: No deficits noted. 22:30 Reassessment: No changes from previously documented assessment. Patient and/or family cr4 updated on plan of care and expected duration. Pain level reassessed. 23:00 Reassessment: No changes from previously documented assessment. Patient and/or family cr4 updated on plan of care and expected duration. Pain level reassessed. Had patient sign consent and updated regarding transfusion of 2units PRBC's. 07/14 00:38 Reassessment: No changes from previously documented assessment. Patient and/or family cr4 updated on plan of care and expected duration. Pain level reassessed. tolerating blood transfusion.. 04:15 Reassessment: No changes from previously documented assessment. Patient and/or family cr4 updated on plan of care and expected duration. Pain level reassessed. Patient states feeling better. Vital Signs: 07/13 17:44 BP 125 / 73; Pulse 98; Resp 17; Temp 98.5; Pulse Ox 100% ; Weight 62.14 kg; Height 5 ll1 ft. 2 in. (157.48 cm); Pain 8/10; 22:00 BP 100 / 65; Pulse 70; Resp 18; Pulse Ox 100% ; Pain 4/10; cr4 23:00 BP 104 / 62; Pulse 74; Resp 18; Pulse Ox 100% ; Pain 0/10; cr4 07/14 00:00 BP 104 / 63; Pulse 74; Resp 15; Temp 98.6; Pulse Ox 100% ; Pain 0/10; cr4 00:20 BP 106 / 70; Pulse 67; Resp 14; Temp 97.9; Pulse Ox 100% ; Pain 0/10; cr4 02:24 BP 109 / 57; Pulse 69; Resp 16; Temp 99.1; Pulse Ox 100% ; Pain 0/10; cr4 03:25 BP 96 / 62; Pulse 67; Resp 11; Temp 99; Pulse Ox 100% ; Pain 0/10; cr4 04:09 BP 109 / 73; Pulse 63; Resp 13; Temp 99; Pulse Ox 100% ; Pain 0/10; cr4 07/13 17:44 Body Mass Index 25.06 (62.14 kg, 157.48 cm) ll1 ED Course: 07/13 17:44 Patient arrived in ED. ll1 17:47 Triage completed. ll1 17:48 Arm band placed on. ll1 20:40 Oli Fairbanks PA is PHCP. cp 20:40 Philly Romo MD is Attending Physician. cp 21:02 Judi Brown, CARLITOS is Primary Nurse. cr4 21:30 Inserted saline lock: 20 gauge in left antecubital area, using aseptic technique. Blood cr4 collected. Missed attempt(s): 20 gauge in right antecubital area. 21:40 Notified Nurse Practitioner and/or Physician Regulator Inspector of a critical lab result(s), H/H cr4 5.6/16.9. 22:13 Judi Brown, CARLITOS is Primary Nurse. cr4 22:17 Patient has correct armband on for positive identification. Bed in low position. Call cr4 light in reach. 07/14 00:41 No provider procedures requiring assistance completed. cr4 03:50 IV discontinued, intact, bleeding controlled, No redness/swelling at site. cr4 04:15 Notified ED physician of other blood transfusion was completed. cr4 05:10 Urine Dipstick--Ancillary (enter results) Sent. cr4 Administered Medications: 07/13 21:58 Drug: Tylenol 1000 mg Route: PO; cr4 23:50 Drug: Sodium Chloride 0.9% 250 ml Route: IVPB; Site: left antecubital; cr4 07/14 04:09 Follow up: IV Status: blood transfusion finished; IV Intake: 50ml cr4 Point of Care Testing: Urine : 07/13 21:41 hCG Reading: Negative; Control Reading: Positive; jp3 Intake: 07/14 04:09 IV: 50ml; Total: 50ml. cr4 Outcome: 04:15 Discharge ordered by . [email or web address] 04:42 Patient left the ED. cr4 04:42 Discharge instructions given to patient, Instructed on discharge instructions, follow cr4 up and referral plans. Demonstrated understanding of instructions, follow-up care. 05:03 Discharged to home ambulatory. cr4 05:03 Condition: good Signatures: Judi Brown, RN RN cr4 Oli Fairbanks PA PA cp Alzahri, Mohammad, MD MD ma2 Efra Isabel 3 Carlos Shields, RN RN ll1
[2020-07-14 21:18] VITALS: O2SAT 100
[2020-07-14 21:25] VITALS: BP 109/57; TEMP 99.1
== END 2020-07-14 04:42 | disposition home or self-care (01) ==
LOC: ER 17:18
PROC: 30233N1 Transfusion of Nonautologous Red Blood Cells into Peripheral Vein, Percutaneous Approach (ICD-10-PCS; principal; 2020-07-14)
DX: D64.9 Anemia, unspecified (principal); Z88.6 Allergy status to analgesic agent
CPT/HCPCS: 96365; 85025; 80048; 36415; 86900; 83735; 86850; 81025; 85610; 86901; 81003; 99284; 96366; 36430; P9016 ×2; J7050

== ENCOUNTER 2022-10-06 21:43 | Emergency (ER) | payer SELFPAY ==
--- OUTSIDE RECORDS SUMMARY | 2022-10-06 21:47 | XMS REPORT | Continuity of Care Document ---
:1970 Author Organization [facility] t Address [address] [place] [address] [place] [id number] Care Team Providers Name Role Phone STAS Attending Clinician Unavailable MILLIE POWELL Attending Clinician Unavailable FARIHA ADAME Attending Clinician Unavailable BERYL DONALDSON Attending Clinician Unavailable Beryl Calero Attending Clinician Sherry Millie LIM Attending Clinician [phone] Doctor Unassigned, [place] Attending Clinician Unavailable Dixie Baxter Attending Clinician Aurora Ann MD Attending Clinician AURORA ANN Attending Clinician Unavailable STAS Admitting Clinician Unavailable Aurora Ann MD Admitting Clinician AURORA ANN Admitting Clinician Unavailable Payers Payer Name Policy Type Policy Number Effective Date Expiration Date Kristyn FRANCIS PPO [id number] 2020 00:00:00 Problems Condition Condition Condition Status Onset Resolution Last Treating Co mments Source Name Details Category Date Date Treatment Clinician Date Episode of Episode of Disease Active U nivers heavy heavy 3-04 ity of vaginal vaginal 00:00: [place] bleeding bleeding 00 Medica l Branch Allergies, Adverse Reactions, Alerts Allergy Allergy Status Severity Reaction(s) Onset Inactive Treating Comm ents Source Name Type Date Date Clinician ASPIRIN DRUG Active Anaphylaxis Univ ers INGREDI 6-15 ity of 00:00: [place] 00 Medical Branch Aspirin Propensi Active Anaphylaxis Per Un adriana ty to 6-15 patient ity of adverse 00:00: on 06/21 [place] reaction 00 Medical s Branch Social History Social Habit Start Date Stop Date Quantity Comments Source Exposure to Not sure [facility]-CoV-2 [place] [facility] (event) Branch Tobacco use and 2020-07-10 2020-07-10 Never used Universit y of exposure 00:00:00 00:00:00 [facility] Alcohol intake 2020-07-10 2020-07-10 Ex-drinker [facility] 00:00:00 00:00:00 (finding) [facility] Sex Ass[birth year] Universit y of 00:00:00 00:00:00 [facility] Smoking Status Start Date Stop Date Source Unknown if ever smoked Universit y of [facility] Never smoker [facility] Branch Medications Ordered Filled Start Stop Current Ordering Indication Dosage Frequency Signature Comments Components Source Medication Medication Date Date Medication? Clinician (SIG) Name Name medroxyPROG 2021- No [id number] 150mg Univers ESTERone 07-10- ity of (DEPO-PROVE 20:30: 21:29 [facility]) 00 :00 Medical injection Branch 150 mg medroxyPROG 2021- No [id number] 150mg 150 mg, Univers ESTERone 07-10- Intramuscu ity of (DEPO-PROVE 20:30: 21:29 [place], [place] RA) 00 :00 [id number], Medical injection 4 doses, Branch 150 mg First dose on Thu07/10/20 at 1530, Last dose on Thu03/19/21 at 1530, Routine medroxyPROG 2021- No [id number] 150mg Univers ESTERone 07-10- ity of (DEPO-PROVE 20:30: 21:29 [place] RA) 00 :00 Medical injection Branch 150 mg medroxyPROG 2- No [id number] 150mg 150 mg, Univers ESTERone 07-10- Intramuscu ity of (DEPO-PROVE 20:30: 21:29 [place], [place] RA) 00 :00 [id number], Medical injection 4 doses, Branch 150 mg First dose on Thu07/10/20 at 1530, Last dose on Thu03/19/21 at 1530, Routine medroxyPROG 2021-0 2- No [id number] 150mg Univers ESTERone 3-23 02-22 ity of (DEPO-PROVE 20:30: 21:29 [place] RA) 00 :00 Medical injection Branch 150 mg medroxyPROG 2021-0 2- No [id number] 150mg Univers ESTERone 3-23 -22 ity of (DEPO-PROVE 20:30: 21:29 [place] RA) 00 :00 Medical injection Branch 150 mg medroxyPROG 2021-0 2- No [id number] 150mg Univers ESTERone 3-23 -22 ity of (DEPO-PROVE 20:30: 21:29 [place] RA) 00 :00 Medical injection Branch 150 mg medroxyPROG 2021-0 2- No [id number] 150mg Univers ESTERone 3-23 02-22 ity of (DEPO-PROVE 20:30: 21:29 [place] RA) 00 :00 Medical injection Branch 150 mg medroxyPROG 2021-0 2- No [id number] 150mg Univers ESTERone 3-23 02-22 ity of (DEPO-PROVE 20:30: 21:29 [place] RA) 00 :00 Medical injection Branch 150 mg medroxyPROG 2021-0 2- No [id number] 150mg Univers ESTERone 3-23 02-22 ity of (DEPO-PROVE 20:30: 21:29 [place] RA) 00 :00 Medical injection Branch 150 mg medroxyPROG 2021-0 2- No [id number] 150mg Univers ESTERone 3-23 02-22 ity of (DEPO-PROVE 20:30: 21:29 [place] RA) 00 :00 Medical injection Branch 150 mg medroxyPROG 2021-0 2- No [id number] 150mg Univers ESTERone 3-23 02-22 ity of (DEPO-PROVE 20:30: 21:29 [place] RA) 00 :00 Medical injection Branch 150 mg medroxyPROG 2021-0 2- No [id number] 150mg Univers ESTERone 3-23 02-22 ity of (DEPO-PROVE 20:30: 21:29 [place] RA) 00 :00 Medical injection Branch 150 mg medroxyPROG 2021- No [id number] 150mg Univers ESTERone 07-10 ity of (DEPO-PROVE 20:30: 21:29 [place] RA) 00 :00 Medical injection Branch 150 mg medroxyPROG 2020- No [id number] 20mg Take 2 Univers ESTERone 10 06-22-11 tablets by i ty of mg tablet 00:00: 05:59 mouth 3 [place] 00 :00 (three) Medical times Branch daily for 5 days. medroxyPROG 2020- No [id number] 20mg Take 2 Univers ESTERone 10 06-22-11 tablets by i ty of mg tablet 00:00: 05:59 mouth 3 [place] 00 :00 (three) Medical times Branch daily for 5 days. medroxyPROG Yes 20mg 20 mg, Univ ers ESTERone 06-21 Oral, TID, ity o f (CYCRIN) 20:00: First dose [place] as tablet 20 00 (after Medical mg last Branch modificati on) on [place] 06/21/20 at 1400, Until Discontinu ed, Routine medroxyPROG 2020- No 10mg 10 mg, Uni vers ESTERone -07 21-04 Oral, ity of (CYCRIN) 17:45: 18:16 ONCE, 1 [place] tablet 10 00 :00 dose, [place] Medic al mg 06/21/20 at Branch 1145, Routine diphenhydrA 2020- No 25mg 25 mg, Uni vers MINE 3- 03-05 Oral, ity of (BENADRYL) 16:45: 03:57 ONCE, 1 [place] tablet 25 00 :00 dose, [place] Medic al mg 06/21/20 at Branch 1045, Routine medroxyPROG 2020- No 10mg 10 mg, Uni vers ESTERone 3- 03-04 Oral, TID, ity of (CYCRIN) 07:45: 16:35 First dose [place] tablet 10 00 :03 on [place] Medical mg 06/21/20 at Branch 0145, Until Discontinu ed, Routine docusate Yes 100mg 100 mg, Unive rs (COLACE) 3-04 Oral, ity of capsule 100 07:28: QDAILYPRN, [place] mg 26 Starting Medical [facility] 06/21/20 Branch at 0128, Until Discontinu ed, Routine, Constipati on diphenhydrA Yes 50mg 50 mg, Univ ers MINE 3-04 Oral, ity of (BENADRYL) 07:27: [facility]PRN[facility] Starting Medic al mg [facility] 06/21/20 Branch at 0127, Until Discontinu ed, Routine, Itching ondansetron Yes 4mg 4 mg, Slow Univers (ZOFRAN 3-04 IV Push, ity of (PF)) 07:27: K12UYDE, [place] injection 4 52 Starting Medi roberto mg [facility] 06/21/20 Branch at 0127, Until Discontinu ed, Routine, Nausea and Vomiting (N/V) acetaminoph Yes 650mg 650 mg, Un adriana en 304 Oral, ity of (TYLENOL) 07:27: Q6HPRN, [place] tablet 650 34 Starting Medic al mg [facility] 06/21/20 Branch at 0127, Until Discontinu ed, Routine, Pain (scale 1-3), Pain (scale 4-6) No known No Univers medications [facility] Vital Signs Vital Name Observation Time Observation Value Comments Source Systolic blood 2020-07-10 128 mm[Hg] University of pressure 19:42:00 [facility] Diastolic blood 2020-07-10 70 mm[Hg] [place] o f pressure 19:42:00 [facility] Heart rate 2020-07-10 90 /min [facility] :42:00 [facility] Body temperature 2020-07-10 36.89 Dior [facility] :42:00 [facility] Respiratory rate 2020-07-10 16 /min [facility] 19:42:00 [facility] Body height 2020-07-10 157.5 cm [facility] :42:00 [facility] Body weight 2020-07-10 61.916 kg [facility] 19:42:00 [facility] BMI 2020-07-10 24.97 kg/m2 [facility] :42:00 [facility] Systolic blood 2020-06-22 114 mm[Hg] [place] of pressure 17:01:00 [facility] Diastolic blood 2020-06-22 72 mm[Hg] [place] o f pressure 17:01:00 [facility] Heart rate 2020-06-22 72 /min [facility] 17:01:00 [facility] Body temperature 2020-06-22 36.78 Dior [facility] 17:01:00 [facility] Respiratory rate 2020-06-22 18 /min [facility] 17:01:00 [facility] Oxygen saturation 2020-06-22 99 /min [facility] in Arterial blood 17:01:00 [facility] by Pulse oximetry [facility] Body weight 2020-06-22 60.102 kg actual wt on [facility] 10:35:00 the regular [facility] scale Branch BMI 2020-06-22 24.23 kg/m2 [facility] 10:35:00 [facility] Body height 2020-06-21 157.5 cm [facility] 23:30:00 [facility] Procedures Procedure Date / Time Performing Clinician Source Performed BI SCREENING MAMMOGRAM 2020-08-02 14:06:00 Millie Powell [facility] POCT TEST 2020-07-10 19:51:00 [facility]/REFUSAL FOR 2020-07-10 19:06:17 Doctor Unassigned, No [facility] DIAGNOSIS AND TREATMENT [facility] ASSIGNMENT OF BENEFITS 2020-07-10 19:05:59 Doctor Unassigned, No [facility] CBC WITH DIFF 2020-06-22 10:44:00 Reuben [facility] PREPARE PACKED RBC 2020-06-22 04:13:04 Rosalba Gambino [facility] PREPARE PACKED RBC 2020-06-22 03:48:34 [facility] CBC WITHOUT DIFF 2020-06-22 03:20:00 Sirena Garcia [facility] PAP SMEAR-LIQUID 2020-06-21 16:32:00 Talha [facility] CBC WITH DIFF 2020-06-21 14:01:00 Rosalba Gambino [facility] COVID-19 (ID NOW RAPID 2020-06-21 07:47:00 Reuben, [facility] TESTING) [facility] LAB ONLY COVID 2020-06-21 07:47:00 Reuben [facility] INTERPRETATION [facility] HB ABO GROUPING 2020-06-21 07:08:[address] [facility] TEST, URINE 2020-06-21 07:04:00 Kathryn Khan [facility] URINALYSIS 2020-06-21 07:04:[address] [facility] URINE CULTURE 2020-06-21 07:04:[address] [facility] US PELVIS COMPLETE WITH 2020-06-21 06:58:46 Morelia Khan [facility] TRANSVAGINAL [facility] CBC WITH DIFF 2020-06-21 06:16:[address] [facility] HOSPITAL ADMISSION 2020-06-20 06:01:00 Doctor Unassigned, No Uni [facility] Encounters Start End Encounter Admission Attending Care Care Encounter Source Date/Time Date/Time Type Type Clinicians Facility Department ID 2021-11-01 2021-11-01 Outpatient KIMBERLY [facility] [address] [place] 04:33:00 04:33:00 [facility] 2020-11-13 2020-11-13 Outpatient Tre [facility] [id number] Univers 14:30:00 14:30:00 MILLIE watson [facility] 2020-11-09 2020-11-09 Outpatient Tre [facility] [id number] Univers 08:45:00 08:45:00 FARIHA [facility] 2020-11-08 2020-11-08 Outpatient Tre [facility] [id number] Univers 10:15:00 10:15:00 FARIHA [facility] 2020-11-06 2020-11-06 Outpatient R [facility] [id number] Univers 09:30:00 09:30:00 FARIHA emily [facility] 2020-09-14 2020-09-14 Outpatient R [facility] [id number] Univers 09:30:00 09:30:00 FARIHA fields [facility] 2020-09-11 2020-09-11 [id number] Univers 00:00:00 00:00:00 BERYL stein f [facility] 2020-08-03 2020-08-03 Telephone [facility] [id number] Univers 00:00:00 00:00:00 Beryl [place] PATENT PROSECUTION ATTORNEY [id number] ity [facility] [id number] [place] as MATERNAL [id number] [facility] ical & CHILD [address] [place] [address] 2020-08-02 2020-08-02 [facility] [id number] Univers 08:40:00 23:59:00 Encounter Millie Fernandes [id number] [facility] 4.2.7.2.686 [facility] [id number] [address] 2020-08-02 2020-08-02 Outpatient R [facility] [id number] Univers 00:00:00 00:00:00 MILLIE fields o f [facility] 2020-07-24 2020-07-24 [facility] [id number] Univers 07:03:59 23:59:00 Encounter Millie LOZANO [id number] ity of [facility] 4.2.7.2.686 [facility] AT [id number] Nh mary COKER [facility] 2020-07-24 2020-07-24 [facility] [id number] Univers 00:00:00 00:00:00 MILLIE fields o walter [facility] 2020-07-12 2020-07-[address] [facility] [id number] 00:00:00 00:00:00 Millie C PATENT PROSECUTION ATTORNEY [id number] [facility] 4.2.7.2.686 MATERNAL [id number] & [address] 2020-07-12 2020-07-[address] [facility] [id number] Univers 00:00:00 00:00:00 Millie C PATENT PROSECUTION ATTORNEY [id number] ity of [facility] 4.2.7.2.686 [place] MATERNAL [id number] [facility] & CHILD [address] [place] [address] 2020-07-10 2020-07-[address] [facility] [id number] Univers 14:29:49 15:36:46 Visit Millie Branch PATENT PROSECUTION ATTORNEY [id number] ity of [facility] [id number] [place] MATERNAL [id number] [facility] & CHILD [address] [place] [address] 2020-07-10 2020-07-10 Outpatient R [facility] [id number] Univers 14:00:00 14:00:00 MILLIE fields o f [facility] 2020-07-10 2020-07-10 Orders Doctor ELENA [id number] Univers 00:00:00 00:00:00 Only Unassigned, EVER [id number] [place] [facility] 4.2.7.2.686 [place] as [id number] [facility] 009 Branch 2020-06-25 2020-06-25 Transition Ning Baxter [id number] Univers 00:00:00 00:00:00 of Care Dixie Carmona [id number] ity of [place] 4[place]2.7.2.686 [place] [id number] [facility] 403 Branch 2020-06-20 2020-06-22 [facility] [place] [id number] Univers 22:32:00 15:45:00 Encounter Aurora Guevara [id number] [facility] 4.2.7.2.686 [place] as [id number] [facility] 090 Branch 2020-06-20 2020-06-20 Emergency U SETH, [facility] ERT [id number] [facility] 22:32:00 22:32:00 AURORA fields [facility] Results Test Description Test Time Test Comments Results Result Comments Source POCT TEST 2020-07-10 19:54:00 Test Item Value Reference Range Interpretation Comme nts POCT PREG (test code = 1605) Negative On board controls acceptable with C Line (test code = 3574) Yes POCT PREG LOT # (test code = 3575) POCT PREG TEST DATE (test code = 3576) [id number] 19:54:00 Test Item Value Reference Range Interpretation Comments POCT PREG (test code = 1605) Negative On board controls acceptable with C Yes Line (test code = 3574) POCT PREG LOT # (test code = 3575) POCT PREG TEST DATE (test code = 3576) [facility] [id number] 21:06:00 Test Item Value Reference Range Interpretation Comments URINE CULTURE (test 10,000-100,000 CFU/mL code = 630-4) Streptococcus viridans group [facility] Differential - On Postoperative Day # [id number] 11:07:00 Test Item Value Reference Range Interpretation Comments WBC (test code = See_Comment [Automated 6709-2) message] The sy stem which generated this result transmitted reference range : 4.30 - 11.10 10*3/?L. The reference range was not used to interpret this result as normal/abnormal . RBC (test code = See_Comment L [Automated 799-8) message] The sy stem which generated this result transmitted reference range : 3.93 - 5.25 10*6/?L. The reference range was not used to interpret this result as normal/abnormal . HGB (test code = 7.8 g/dL 11.6-15 L 718-7) HCT (test code = 24.3 % 35.7-45.2 L 4544-3) MCV (test code = 82.4 fL 80.6-95.5 787-2) MCH (test code = 26.4 pg 25.9-32.8 785-6) MCHC (test code = 32.1 g/dL 31.6-35.1 786-4) RDW-SD (test code = 44.8 fL 39-49.9 95654-8) RDW-CV (test code = 14.9 % 12-15.5 788-0) PLT (test code = See_Comment [Automated 777-3) message] The sy stem which generated this result transmitted reference range : 166 - 358 10*3/ ?L. The reference r ashleigh was not used to interpret this result as normal/abnormal . MPV (test code = 9.9 fL 9.5-12.9 51904-9) NRBC/100 WBC (test See_Comment [Automat ed code = 4693285230) message] The system which generated this result transmitted reference range : 0.0 - 10.0 /100 WBCs. The refer ence range was not u sed to interpret th is result as normal/abnormal . NRBC x10^3 (test code <0.01 See_Comment [Auto mated = [id number]) message] The s ystem which generated this result transmitted reference range : 10*3/?L. The reference range was not used to interpret this result as normal/abnormal . GRAN MAT (NEUT) % 60.6 % (test code = 770-8) IMM GRAN % (test code 0.40 % = 0315359105) LYMPH % (test code = 32.9 % 736-9) MONO % (test code = 5.0 % 5905-5) EOS % (test code = 0.9 % 713-8) BASO % (test code = 0.2 % 706-2) GRAN MAT x10^3(ANC) 5.50 10*3/uL 1.88-7.09 (test code = 1865944964) IMM GRAN x10^3 (test 0.04 10*3/uL 0-0.06 code = 9500632756) LYMPH x10^3 (test code 2.98 10*3/uL 1.32-3.29 = 731-0) MONO x10^3 (test code 0.45 10*3/uL 0.33-0.92 = 742-7) EOS x10^3 (test code = 0.08 10*3/uL 0.03-0.39 711-2) BASO x10^3 (test code <0.03 0.01-0.07 = 704-7) Lab Interpretation Abnormal (test code = 44488-9) [facility] [id number] 04:44:00COVID DMT InterpretationInterpretation/Recommendations: Molecular NAAT Tests for Active Infection with the SARS-CoV-2 Virus: The patient has currently tested negative for the SARS-CoV-2 virus that causes COVID-19 illness. This most likely indicates that the patient does not have an active infection with the SARS-CoV-2 virus. However, infection is not completely ruled out as the false negative rate for molecular NAAT testing using a nasopharyngeal sample can be up to 30%, mostly dependent on the timing of sample collection in relation to illness onset and any deficiencies in sampling techniques. If the patient has symptoms concerning for COVID-19 illness, a repeat NAAT test (PCR, Rapid ID Now, etc.) should be performed, at which time the SARS-CoV-2 virus - if present - may have reached a detectable viral load (usually peaking by the end of the first week of symptoms). Tests for IgM and/or IgG Antibodies to the SARS-CoV-2 Virus: If the patient develops COVID-19 illness in the future, testing for IgM and IgG antibodies approximately 3 weeks after illness onset will likely indicate if the patient has produced antibodies to the SARS-CoV-2 virus. However, some patients may take longer to develop detectable antibodies, while some patients who were infected with SARS-CoV-2 may never develop antibodies. While antibodies to SARS-CoV-2 may provide some degree of immunity, at this time the strength and duration of the antibody response is unknown. ? ? Interpretation Result Comments:These interpretation comments are based upon all COVID-19 testing the patient has had at [facility], including molecular NAAT testing (more commonly knownas PCR testing and Rapid ID Now testing) and antibody testing. It does not take into account any testing that a patient has had outside of the [facility] medical record. [facility] LABORATORY SERVICESCOVID ResultsS ARS-CoV-2 Rapid ID NOW (no units) ? ? Date ? Value ? 06/21/2020 ? Not Detected ? [facility]ORY SERVICES [facility] WITHOUT [id number] 03:36:00 Test Item Value Reference Range Interpretation Comments WBC (test code = 6690-2) See_Comment [A utomated message] The system [employer] generated this result transmit [place] reference range : 4.30 - 11.10 10*3/?L. The reference range was not used to interpret this result as normal/abnormal . RBC (test code = 789-8) See_Comment L [Au tomated message] The system [employer] generated this result transmit [place] reference range : 3.93 - 5.25 10* 6/?L. The reference r ashleigh was not used to interpret this result as normal/abnormal . HGB (test code = 718-7) 6.2 g/dL 11.6-15 L HCT (test code = 4544-3) 19.2 % 35.7-45.2 L MCH (test code = 785-6) 26.1 pg 25.9-32.8 MCV (test code = 787-2) 80.7 fL 80.6-95.5 MCHC (test code = 786-4) 32.3 g/dL 31.6-35.1 PLT (test code = 777-3) See_Comment [Au tomated message] The system [employer] generated this result transmit [place] reference range : 166 - 358 10*3/?L. The reference range was not used to interpret this result as normal/abnormal . MPV (test code = 10.0 fL 9.5-12.9 70820-0) RDW-CV (test code = 14.6 % 12-15.5 788-0) RDW-SD (test code = 42.7 fL 39-49.9 06480-3) NRBC x10^3 (test code = <0.01 See_Comment [Au tomated message] [id number]) The system [employer] h generated this result transmit [place] reference range : 10*3/?L. The reference range was not used to interpret this result as normal/abnormal . NRBC/100 WBC (test code See_Comment [Au tomated message] = 0660835072) The system [employer] generated this result transmit ilma reference range : 0.0 - 10.0 /100 WBC s. The reference r ashleigh was not used to interpret this result as normal/abnormal . IPF % (test code = 2359799697) Lab Interpretation (test Abnormal code = 50301-0) [facility] PELVIS COMPLETE WITH [id number] 15:30:56 Thickened endometrium with heterogenous echogenicity with no vascular flow,likely blood products. Otherwise the uterus is unremarkable. Right ovarian cyst measuring 3.1 x 2.1 x 2.6 cm. Left ovary was notvisualized. Preliminary Report Dictated by Resident: Yohannes Naik MD.,have reviewed this study and agree with theabove report.US PELVIS COMPLETE WITH TRANSVAGINAL HISTORY: 50 years-old; Female; heavy vaginal bleeding COMPARISON: None FINDINGS: UTERUS: The uterus zskoessb36.0 x 5.6 x 7.0 cm (209 mL). The endometriumis homogeneous and measures 1.3 cm in thickness. OVARIES: The right ovary measures 1.8 x 0.8 x 1.4 cm (1.1 mL). An anechoiccyst measures 3.1 x 2.1 x 2.6 cm.The left ovary is not visualizedtransabdominally or transvaginally. CERVIX: Multiple anechoic nabothian cysts are seen. No ?free fluid. [facility], Radiant Results Inft User - 06/21/2020 9:32 AM CSTUS PELVISCOMPLETE WITH TRANSVAGINALHISTORY: 50 years-old; Female; heavy vaginal bleeding COMPARISON: NoneFINDINGS: UTERUS: The uterus measures 10.0 x 5.6 x 7.0 cm (209 mL). The endometriumis homogeneous and measures 1.3 cm in thickness.OVARIES: The right ovary measures 1.8 x 0.8 x 1.4 cm (1.1 mL). An anechoiccyst measures 3.1 x 2.1 x 2.6 cm. The left ovary is not visualizedtransabdominally or transvaginally.CE RVIX: Multiple anechoic nabothian cysts are seen.No free fluid.IMPRESSIONThickened endometrium with heterogenous echogenicity with no vascular flow,likely blood products. Otherwise the uterus is unremarkable.Right ovarian cyst measuring 3.1 x 2.1 x 2.6 cm. Left ovary was notvisualized.Preliminary Report Dictated by Resident: Lj Coronado, Yohannes Carbajal MD., have reviewed this study and agree with theabove report. [facility] WITH [id number] 14:08:00 Test Item Value Reference Range Interpretation Comments WBC (test code = See_Comment [Automated 3790-2) message] The sy stem which generated this result transmitted reference range : 4.30 - 11.10 10*3/?L. The reference range was not used to interpret this result as normal/abnormal . RBC (test code = See_Comment L [Automated 229-8) message] The sy stem which generated this result transmitted reference range : 3.93 - 5.25 10*6/?L. The reference range was not used to interpret this result as normal/abnormal . HGB (test code = 6.4 g/dL 11.6-15 L 718-7) HCT (test code = 19.7 % 35.7-45.2 L 4544-3) MCV (test code = 79.8 fL 80.6-95.5 L 787-2) MCH (test code = 25.9 pg 25.9-32.8 785-6) MCHC (test code = 32.5 g/dL 31.6-35.1 786-4) RDW-SD (test code = 41.9 fL 39-49.9 41685-2) RDW-CV (test code = 14.4 % 12-15.5 788-0) PLT (test code = See_Comment [Automated 777-3) message] The sy stem which generated this result transmitted reference range : 166 - 358 10*3/ ?L. The reference r ashleigh was not used to interpret this result as normal/abnormal . MPV (test code = 9.8 fL 9.5-12.9 47978-7) NRBC/100 WBC (test See_Comment [Automat ed code = 3459711964) message] The system which generated this result transmitted reference range : 0.0 - 10.0 /100 WBCs. The refer ence range was not u sed to interpret th is result as normal/abnormal . NRBC x10^3 (test code <0.01 See_Comment [Auto mated = 5570299908) message] The s ystem which generated this result transmitted reference range : 10*3/?L. The reference range was not used to interpret this result as normal/abnormal . GRAN MAT (NEUT) % 62.3 % (test code = 770-8) IMM GRAN % (test code 0.30 % = 4833227490) LYMPH % (test code = 31.8 % 736-9) MONO % (test code = 4.5 % 5905-5) EOS % (test code = 0.8 % 713-8) BASO % (test code = 0.3 % 706-2) GRAN MAT x10^3(ANC) 4.72 10*3/uL 1.88-7.09 (test code = 6421520554) IMM GRAN x10^3 (test <0.03 0-0.06 code = 3011474716) LYMPH x10^3 (test code 2.41 10*3/uL 1.32-3.29 = 731-0) MONO x10^3 (test code 0.34 10*3/uL 0.33-0.92 = 742-7) EOS x10^3 (test code = 0.06 10*3/uL 0.03-0.39 711-2) BASO x10^3 (test code <0.03 0.01-0.07 = 704-7) Lab Interpretation Abnormal (test code = 39592-7) [facility]2020-06-21 08:12:00 Test Item Value Reference Range Interpretation Comments SARS-CoV-2 Rapid ID NOW Not Detected Not Detected (test code = 38947-2) DAVON (test code = DAVON) ID NOW COVID-19 Assay is an isothermal nucleic acid amplification test intended for the qualitative detection of nucleic acid from SARS-CoV-2 viral RNA in nasopharyngeal (BAR[employer] DRILLER) specimens. It is used under Emergency Use Authorization (EUA) by FDA. The limit of detection (LOD) of the assay is 125 Genome Equivalents/mL. A positive result is indicative of the presence of SARS-CoV-2 RNA. ?Clinical correlation with patient history and other diagnostic information is necessary to determine patient infection status. A negative (Not Detected) result does not preclude SARS-CoV-2 infection. In patients with clinical symptoms and other tests that are consistent with SARS-CoV-2 infection, negative results should be treated as presumptive negative and a new specimen should be tested with alternative PCR molecular test. Invalid: Please collect a new specimen for repeat patient testing if clinically indicated. Lab Interpretation Normal (test code = 19241-9) [facility] - ONCE [id number] 07:48:06 Test Item Value Reference Range Interpretation Comments ABO & RH (test code O POSITIVE Performe d at [facility] = 20) Laboratory Serv [facility] [address] [facility] [id number] Free: [phone] A No. [id number] IAT (test code = Negative Performed a t [facility] 1185) Laboratory Serv [facility] [address] [facility] [address] [address]Barg Free: [phone] A No. [id number] [facility] 07:47:00 Test Item Value Reference Range Interpretation Comments APPEARANCE (test code = Cloudy Clear A 4213992509) COLOR (test code = Red Yellow A 6094633841) PH (test code = 4.8-8.0 5856660466) SP GRAVITY (test code = 1.003-1.030 4569452611) GLU U QUAL (test code = Normal Normal 6676462244) BLOOD (test code = 3+ Negative A 6838820477) KETONES (test code = Negative Negative 5111428925) PROTEIN (test code = 100 mg/dL Negative A 2887-8) UROBILIN (test code = Normal Normal 5488134511) BILIRUBIN (test code = Negative Negative 1462667598) NITRITE (test code = Negative Negative 3796780797) LEUK PIPE (test code = 25/uL Negative A 2123815031) RBC/HPF (test code = >182 See_Comment H [Autom ated message] 4100922166) The system [employer] generated this result transmit lima reference range : 0 - 3 HPF. The refe rence range was not u sed to interpret th is result as normal/abnormal . WBC/HPF (test code = See_Comment [Autom ated message] 7363987167) The system [employer] generated this result transmit lima reference range : 0 - 5 HPF. The refe rence range was not u sed to interpret th is result as normal/abnormal . BACTERIA (test code = Negative Negative 9510149631) Lab Interpretation (test Abnormal code = 33406-6) [facility], [id number] 07:38:00 Test Item Value Reference Range Interpretation Comments PREG URINE (test code Negative = 3242120969) DAVON (test code = DAVON) Less than 20 IU/L. ?If low titer or ectopic is suspected, resubmit specimen in 48-72 hours. [facility]CB WITH [id number] 06:33:00 Test Item Value Reference Range Interpretation Comments WBC (test code = See_Comment [Automated 5790-2) message] The sy stem which generated this result transmitted reference range : 4.30 - 11.10 10*3/?L. The reference range was not used to interpret this result as normal/abnormal . RBC (test code = See_Comment L [Automated 139-8) message] The sy stem which generated this result transmitted reference range : 3.93 - 5.25 10*6/?L. The reference range was not used to interpret this result as normal/abnormal . HGB (test code = 7.0 g/dL 11.6-15 L 718-7) HCT (test code = 21.2 % 35.7-45.2 L 4544-3) MCV (test code = 79.4 fL 80.6-95.5 L 787-2) MCH (test code = 26.2 pg 25.9-32.8 785-6) MCHC (test code = 33.0 g/dL 31.6-35.1 786-4) RDW-SD (test code = 40.6 fL 39-49.9 77306-8) RDW-CV (test code = 14.1 % 12-15.5 788-0) PLT (test code = See_Comment [Automated 777-3) message] The sy stem which generated this result transmitted reference range : 166 - 358 10*3/ ?L. The reference r ashleigh was not used to interpret this result as normal/abnormal . MPV (test code = 10.0 fL 9.5-12.9 89892-0) NRBC/100 WBC (test See_Comment [Automat ed code = 0587654282) message] The system which generated this result transmitted reference range : 0.0 - 10.0 /100 WBCs. The refer ence range was not u sed to interpret th is result as normal/abnormal . NRBC x10^3 (test code <0.01 See_Comment [Auto mated = 2997954758) message] The s ystem which generated this result transmitted reference range : 10*3/?L. The reference range was not used to interpret this result as normal/abnormal . GRAN MAT (NEUT) % 84.3 % (test code = 770-8) IMM GRAN % (test code 0.50 % = 1151957436) LYMPH % (test code = 13.2 % 736-9) MONO % (test code = 1.8 % 5905-5) EOS % (test code = 0.0 % 713-8) BASO % (test code = 0.2 % 706-2) GRAN MAT x10^3(ANC) 8.55 10*3/uL 1.88-7.09 H (test code = 9950371624) IMM GRAN x10^3 (test 0.05 10*3/uL 0-0.06 code = 4075667921) LYMPH x10^3 (test code 1.34 10*3/uL 1.32-3.29 = 731-0) MONO x10^3 (test code 0.18 10*3/uL 0.33-0.92 L = 742-7) EOS x10^3 (test code = <0.03 0.03-0.39 L 711-2) BASO x10^3 (test code <0.03 0.01-0.07 = 704-7) Lab Interpretation Abnormal (test code = 67700-1) [facility]
[2022-10-06] MEDS ORDERED: TRAMADOL HCL 50 MG TAB ONE (22:14)
--- NOTE | 2022-10-06 22:33 | EDPHYS ---
Physician Documentation [facility] Name: Maine Stewart Age: 52 yrs Sex: Female : 1970 Arrival Date: 10/06/2022 Time: 21:43 Bed 8 Private MD: ED Physician Lei Ruiz HPI: 10/06 21:59 This 52 yrs old Female presents to ER via Ambulatory with complaints of rn Toothache. 21:59 The patient presents with pain. The problem is located in the right upper teeth. Onset: rn The symptoms/episode began/occurred today. Duration: The symptoms are continuous. Modifying factors: The symptoms are alleviated by nothing, the symptoms are aggravated by chewing. Associated signs and symptoms: Pertinent negatives: dysphagia, fever, inability to eat. Severity of symptoms: At their worst the symptoms were moderate, in the emergency department the symptoms are unchanged. The patient has not experienced similar symptoms in the past. Pt reports has had dental problems for some time, but today right upper teeth/tooth pain is worsening, no fever, no swelling, no drainage. No injury or trauma. . Historical: - Allergies: 21:57 Aspirin; mb9 - Home Meds: 21:57 None [Active]; mb9 - PMHx: 21:57 Anemia; mb9 - PSHx: 21:57 None; mb9 - Immunization history:: Adult Immunizations up to date. - Social history:: Smoking status: Patient denies any tobacco usage or history of. - Family history:: not pertinent. - Hospitalizations: : No recent hospitalization is reported. ROS: 21:59 Constitutional: Negative for fever, chills, and weight loss, ENT: + right upper dental rn pain Neck: Negative for injury, pain, and swelling, Respiratory: Negative for shortness of breath, cough, wheezing, and pleuritic chest pain. Exam: 21:59 Constitutional: This is a well developed, well nourished patient who is awake, alert, rn and in no acute distress. Head/Face: Normocephalic, atraumatic. Eyes: Periorbital areas with no swelling, redness, or edema. ENT: Poor dentition with right upper premolar with significant erosion and erythema along gum line. No abscess or drainage. Buccal mucosa without fluctuance or firmness. Neck: Trachea midline, no masses palpated, and no cervical lymphadenopathy. Supple, full range of motion without nuchal rigidity, or vertebral point tenderness. No Meningismus. Vital Signs: 21:56 BP 172 / 72; Pulse 52; Resp 16; Temp 98.2(O); Pulse Ox 100% on R/A; Weight 60.33 kg; mb9 Height 5 ft. 5 in. ; 22:23 BP 152 / 62; Pulse 57; Resp 18 S; Pulse Ox 100% on R/A; ha1 21:56 Body Mass Index 22.13 (60.33 kg, 165.1 cm) mb9 MDM: 21:46 Patient medically screened. rn 22:31 Differential diagnosis: dental caries, gingivitis, dental abscess. Data reviewed: vital rn signs, nurses notes, and as a result, I will discharge patient. Counseling: I had a detailed discussion with the patient and/or guardian regarding: the historical points, exam findings, and any diagnostic results supporting the discharge/admit diagnosis, the need for outpatient follow up, to return to the emergency department if symptoms worsen or persist or if there are any questions or concerns that arise at home. Response to treatment: the patient's symptoms have mildly improved after treatment, and as a result, I will discharge patient. Special discussion: I discussed with the patient/guardian in detail that at this point there is no indication for admission to the hospital. It is understood, however, that if the symptoms persist or worsen the patient needs to return immediately for re-evaluation. Based on the history and exam findings, there is no indication for further emergent testing or inpatient evaluation. I discussed with the patient/guardian the need to see a dentist for further evaluation of the symptoms. Administered Medications: 22:21 Drug: Clindamycin PO 300 mg Route: PO; ha1 22:39 Follow up: Response: No adverse reaction as6 22:21 Drug: traMADol PO 50 mg Route: PO; ha1 22:39 Follow up: Response: No adverse reaction as6 Disposition Summary: 10/06/22 22:33 Discharge Ordered Location: Home rn Problem: new rn Symptoms: have improved rn Condition: Stable rn Diagnosis - Dental caries, unspecified rn Followup: rn - With: Private Physician - When: As needed - Reason: Recheck today's complaints, Re-evaluation by your physician Discharge Instructions: - Discharge Summary Sheet rn - Dental Caries, Adult rn - Dental Pain rn Forms: - Medication Reconciliation Form rn - Thank You Letter rn - Antibiotic deputy commonwealth's attorney - Prescription Opioid Use rn Prescriptions: - Clindamycin HCl 300 mg Oral Capsule - take 1 capsule by ORAL route every 6 hours for 10 days; 40 capsule; Refills: 0, rn Product Selection Permitted - Tramadol 50 mg Oral Tablet - take 1 tablet by ORAL route every 8 hours as needed; 12 tablet; Refills: 0, rn Product Selection Permitted Signatures: Lei Ruiz MD MD rn Ayala, Heidy, RN RN ha1 Danitza Pizano RN RN mb9 Néstor Head RN as6
--- NOTE | 2022-10-06 22:33 | ER ---
Nurse's Notes [facility] Name: Maine Stewart Age: 52 yrs Sex: Female : 1970 Arrival Date: 10/06/2022 Time: 21:43 Bed 8 Private MD: Diagnosis: Dental caries, unspecified Presentation: 10/06 21:56 Chief complaint: Patient states: "My right side of mouth and tooth started hurting mb9 today. I took Tylenol around 8pm". Coronavirus screen: Vaccine status: Patient reports receiving the 2nd dose of the covid vaccine. Ebola Screen: No symptoms or risks identified at this time. Initial Sepsis Screen: Does the patient meet any 2 criteria? No. Patient's initial sepsis screen is negative. Does the patient have a suspected source of infection? No. Patient's initial sepsis screen is negative. Risk Assessment: Do you want to hurt yourself or someone else? Patient reports no desire to harm self or others. Onset of symptoms was October 06, 2022. 21:56 Method Of Arrival: Ambulatory [facility] 21:56 Acuity: BULMARO 4 mb9 Triage Assessment: 21:58 General: Appears in no apparent distress. Behavior is calm, cooperative. Pain: mb9 Complains of pain in mouth. EENT: Oral mucosa is dry. Derm: Skin is pink, warm \\T\\ dry. Musculoskeletal: Swelling present in right side of jaw. Historical: - Allergies: 21:57 Aspirin; mb9 - Home Meds: 21:57 None [Active]; mb9 - PMHx: 21:57 Anemia; mb9 - PSHx: 21:57 None; mb9 - Immunization history:: Adult Immunizations up to date. - Social history:: Smoking status: Patient denies any tobacco usage or history of. - Family history:: not pertinent. - Hospitalizations: : No recent hospitalization is reported. Screenin:40 [facility] ED Fall Risk Assessment (Adult) Score/Fall Risk Level 0 - 2 = Low Risk. Abuse as6 screen: Denies threats or abuse. Denies injuries from another. Nutritional screening: No deficits noted. Tuberculosis screening: No symptoms or risk factors identified. Assessment: 21:50 General: Appears comfortable, Behavior is calm, cooperative. Pain: Complains of pain in ha1 mouth Pain does not radiate. Pain currently is 9 out of 10 on a pain scale. Quality of pain is described as throbbing. Neuro: Level of Consciousness is awake, alert, obeys commands, Oriented to person, place, time, situation. Cardiovascular: Patient's skin is warm and dry. Respiratory: Airway is patent Respiratory effort is even, unlabored, Respiratory pattern is regular, symmetrical. EENT: Reports toothache. Musculoskeletal: Circulation, motion, and sensation intact. Range of motion: intact in all extremities. Vital Signs: 21:56 BP 172 / 72; Pulse 52; Resp 16; Temp 98.2(O); Pulse Ox 100% on R/A; Weight 60.33 kg; mb9 Height 5 ft. 5 in. ; 22:23 BP 152 / 62; Pulse 57; Resp 18 S; Pulse Ox 100% on R/A; ha1 21:56 Body Mass Index 22.13 (60.33 kg, 165.1 cm) 9 ED Course: 21:46 Patient arrived in ED. jj6 21:46 Lei Ruiz MD is Attending Physician. rn 21:56 Arm band placed on. mb9 21:57 Triage completed. mb9 22:01 Néstor Head, CARLITOS is Primary Nurse. as6 22:40 Bed in low position. Call light in reach. as6 22:41 No provider procedures requiring assistance completed. Patient did not have IV access as6 during this emergency room visit. Administered Medications: 22:21 Drug: Clindamycin PO 300 mg Route: PO; ha1 22:39 Follow up: Response: No adverse reaction as6 22:21 Drug: traMADol PO 50 mg Route: PO; ha1 22:39 Follow up: Response: No adverse reaction as6 Medication: 22:40 VIS not applicable for this client. as6 Outcome: 22:33 Discharge ordered by . rn 22:41 Discharged to home ambulatory. as6 22:41 Condition: stable 22:41 Discharge instructions given to patient, Instructed on discharge instructions, follow up and referral plans. medication usage, Demonstrated understanding of instructions, follow-up care, medications, Prescriptions given X 2. 22:41 Patient left the ED. as6 Signatures: Lei Ruiz MD MD rn Jeffries, Jennifer j6 Néstor Head RN RN as6 Sandrine Everett RN RN 1 Breneman, Lakisha, RN RN mb9
[2022-10-06 23:07] VITALS: TEMP 98.2; O2SAT 100
[2022-10-06 23:09] VITALS: BP 152/62
== END 2022-10-06 22:41 | disposition home or self-care (01) ==
LOC: ER 21:43
DX: K02.9 Dental caries, unspecified (principal)
CPT/HCPCS: 99283

== ENCOUNTER → 2023-04-16 | Emergency (ER) | payer SELFPAY ==
[~2023-04-16] MED LIST: ALBUTEROL 2.5 MG/3 ML NEB SOL ONE; CLOPIDOGREL 75 MG TABLET ONE; IPRATROPIUM BROM 0.5MG/2.5ML ONE
--- OUTSIDE RECORDS SUMMARY | 2023-04-16 02:25 | XMS REPORT | Continuity of Care Document ---
Author Name Unknown Address [address] [facility] [address] [place] [address] [facility] Address [address] [facility] [address] [place] [address] Care Team Providers Care Multifocal Button Generator Name Role Phone STAS Attending Clinician Unavailable MILLIE POWELL Attending Clinician Unavail able FARIHA ADAME Attending Clinician UnavaBERYL Greer Attending Clinician Unavailab Beryl Bone Attending Clinician + [phone] Millie Campos Attending Clinician + Doctor Unassigned, Leslie Attending Clinician U Dixie Perry Attending Clinician [phone] Aurora Ann MD Attending Clinician [phone] AURORA ANN Attending Clinician Unavailable STAS Admitting Clinician Unavailable Aurora Ann MD Admitting Clinician [phone] AURORA ANN Admitting Clinician Unavailable Payers Payer Name Policy Type Policy Number Effective Date Expirati on Date Source ELINORLILY MARIA LUZ [id number] 2020 00:00:00 Problems Condition Name Condition Details Condition Category Status Onset Date Resolution Date Last Treatment Date Treating Clinician Comments Source Episode of heavy vaginal bleeding Episode of heavy vaginal bleeding Disease Active 06-21 00:00: 00 [facility] Allergies, Adverse Reactions, Alerts Allergy Name Allergy Type Status Severity Reaction(s) Onset Date Inactive Date Treating Clinician Comments Source ASPIRIN DRUG INGREDI Active Anaphylaxis 10-02 00:00: 00 [facility] Aspirin Propensi ty to adverse reaction s Active Anaphylaxis 10-02 00:00: 00 Per patient on 06/21 [facility] Social History Social Habit Start Date Stop Date Quantity Comments Source Exposure to SARS-CoV-2 (event) Not sure [facility] Tobacco use and exposure 2020-07-10 00:00:00 2020-07-10 00:00:00 Never used [facility] Alcohol intake 2020-07-10 00:00:00 2020-07-10 00:00:00 Ex-drinker (finding) [facility] Sex Assigned At 1970 00:00:00 1970 00:00:00 [facility] Smoking Status Start Date Stop Date Source Unknown if ever smoked [facility] Never smoker [facility] Medications Ordered Medication Name Filled Medication Name Start Date Stop Date Current Medication? Ordering Clinician Indication Dosage Frequency Signature (SIG) Comments Components Source medroxyPROG ESTERone (DEPO-PROVE RA) injection 150 mg 07-10 20:30: 00 06-11 21:29 :00 No [id number] 150mg [facility] medroxyPROG ESTERone (DEPO-PROVE RA) injection 150 mg 07-10 20:30: 06-11 21:29 :00 No [id number] 150mg 150 mg, Intramuscu lar, [id number], 4 doses, First dose on Thu07/10/20 at 1530, Last dose on Thu03/19/21 at 1530, Routine [facility] medroxyPROG ESTERone (DEPO-PROVE RA) injection 150 mg 07-10 20:30: 00 06-11 21:29 :00 No [id number] 150mg [facility] medroxyPROG ESTERone (DEPO-PROVE RA) injection 150 mg 07-10 20:30: 00 06-11 21:29 :00 No [id number] 150mg 150 mg, Intramuscu lar, [id number], 4 doses, First dose on Thu07/10/20 at 1530, Last dose on Thu03/19/21 at 1530, [facility]ine [facility] medroxyPROG ESTERone (DEPO-PROVE RA) injection 150 mg 1-0 3-23 20:30: 00 06-11 21:29 :00 No [id number] 150mg [facility] medroxyPROG ESTERone (DEPO-PROVE RA) injection 150 mg 1-0 3-23 20:30: 00 06-11 21:29 :00 No [id number] 150mg [facility] medroxyPROG ESTERone (DEPO-PROVE RA) injection 150 mg 1-0 3-23 20:30: 00 06-11 21:29 :00 No [id number] 150mg [facility] medroxyPROG ESTERone (DEPO-PROVE RA) injection 150 mg 1-0 3-23 20:30: 00 06-11 21:29 :00 No [id number] 150mg [facility] medroxyPROG ESTERone (DEPO-PROVE RA) injection 150 mg 1-0 3-23 20:30: 00 06-11 21:29 :00 No [id number] 150mg [facility] medroxyPROG ESTERone (DEPO-PROVE RA) injection 150 mg 1-0 3-23 20:30: 00 06-11 21:29 :00 No [id number] 150mg [facility] medroxyPROG ESTERone (DEPO-PROVE RA) injection 150 mg 1-0 3-23 20:30: 00 06-11 21:29 :00 No [id number] 150mg [facility] medroxyPROG ESTERone (DEPO-PROVE RA) injection 150 mg 2021-0 3-23 20:30: 00 06-11 21:29 :00 No [id number] 150mg [facility] medroxyPROG ESTERone (DEPO-PROVE RA) injection 150 mg 07-10 20:30: 00 06-11 21:29 :00 No [id number] 150mg [facility] medroxyPROG ESTERone (DEPO-PROVE RA) injection 150 mg 07-10 20:30: 00 06-11 21:29 :00 No [id number] 150mg [facility] medroxyPROG ESTERone 10 mg tablet 06-22 00:00: 00 06-28 05:59 :00 No [id number] 20mg Take 2 tablets by mouth 3 (three) times daily for 5 days. [facility] medroxyPROG ESTERone 10 mg tablet 06-22 00:00: 00 06-28 05:59 :00 No [id number] 20mg Take 2 tablets by mouth 3 (three) times daily for 5 days. [facility] medroxyPROG ESTERone (CYCRIN) tablet 20 mg 06-21 20:00: 00 Yes 20mg 20 mg, Oral, TID, First dose (after last modificati on) on Larisa 06/21/20 at 1400, Until Discontinu ed, Routine [facility] medroxyPROG ESTERone (CYCRIN) tablet 10 mg 06-21 17:45: 00 06-21 18:16 :00 No 10mg 10 mg, Oral, ONCE, 1 dose, [facility] 06/21/20 at 1145, Routine [facility] diphenhydrA MINE (BENADRYL) tablet 25 mg 06-21 16:45: 00 06-22 03:57 :00 No 25mg 25 mg, Oral, ONCE, 1 dose, Larisa 06/21/20 at 1045, Routine [facility] medroxyPROG ESTERone (CYCRIN) tablet 10 mg 06-21 07:45: 00 06-21 16:35 :03 No 10mg 10 mg, Oral, TID, First dose on Larisa 06/21/20 at 0145, Until Discontinu ed, Routine [facility] docusate (COLACE) capsule 100 mg 06-21 07:28: 26 Yes 100mg 100 mg, Oral, QDAILYPRN, Starting Larisa 06/21/20 at 0128, Until Discontinu ed, Routine, Constipati on [facility] diphenhydrA MINE (BENADRYL) capsule 50 mg 06-21 07:27: 57 Yes 50mg 50 mg, Oral, Q6HPRN, Starting Larisa 06/21/20 at 0127, Until Discontinu ed, Routine, Itching [facility] ondansetron (ZOFRAN (PF)) injection 4 mg 06-21 07:27: 52 Yes 4mg 4 mg, Slow IV Push, [id number], Starting Larisa 06/21/20 at 0127, Until Discontinu ed, Routine, Nausea and Vomiting (N/V) [facility] acetaminoph en (TYLENOL) tablet 650 mg 06-21 07:27: 34 Yes 650mg 650 mg, Oral, Q6HPRN, Starting Larisa 06/21/20 at 0127, Until Discontinu ed, Routine, Pain (scale 1-3), Pain (scale 4-6) [facility] No known medications No Un adriana [facility] Vital Signs Vital Name Observation Time Observation Value Comments S ource Systolic blood pressure 2020-07-10 19:42:00 128 mm[Hg] [facility] Diastolic blood pressure 2020-07-10 19:42:00 70 mm[Hg] [facility] Heart rate 2020-07-10 19:42:00 90 /min [facility] Body temperature 2020-07-10 19:42:00 36.89 Dior [facility] Respiratory rate 2020-07-10 19:42:00 16 /min [facility] Body height 2020-07-10 19:42:00 157.5 cm [facility] Body weight 2020-07-10 19:42:00 61.916 kg [facility] BMI 2020-07-10 19:42:00 24.97 kg/m2 [facility] Systolic blood pressure 2020-06-22 17:01:00 114 mm[Hg] [facility] Diastolic blood pressure 2020-06-22 17:01:00 72 mm[Hg] [facility] Heart rate 2020-06-22 17:01:00 72 /min [facility] Body temperature 2020-06-22 17:01:00 36.78 Dior [facility] Respiratory rate 2020-06-22 17:01:00 18 /min [facility] Oxygen saturation in Arterial blood by Pulse oximetry 2020-06-22 17:01:00 99 /min [facility] Body weight 2020-06-22 10:35:00 60.102 kg actual wt on the regular scale [facility] BMI 2020-06-22 10:35:00 24.23 kg/m2 [facility] Body height 2020-06-21 23:30:00 157.5 cm [facility] Procedures Procedure Date / Time Performed Performing Clinician Source BI SCREENING MAMMOGRAM BILATERAL 2020-08-02 14:06:00 Millie Powell [facility] POCT TEST 2020-07-10 19:51:00 Erik Powell [facility] CONSENT/REFUSAL FOR DIAGNOSIS AND TREATMENT 2020-07-10 19:06:17 Doctor Unassigned, Leslie [facility] ASSIGNMENT OF BENEFITS 2020-07-10 19:05:59 Docto r Unassigned, Leslie [facility] CBC WITH DIFF 2020-06-22 10:44:00 Jaci Guerra [facility] PREPARE PACKED RBC 2020-06-22 04:13:04 Shaye Gambino in [facility] PREPARE PACKED RBC 2020-06-22 03:48:34 Sirena Garcia [facility] CBC WITHOUT DIFF 2020-06-22 03:20:00 [facility]CP 2020-06-21 16:32:00 Ceci Palencia [facility] CBC WITH DIFF 2020-06-21 14:01:00 [facility]anand [facility] COVID-19 (ID NOW RAPID TESTING) 2020-06-21 07:47:00 Jaci Alexis [facility] LAB ONLY COVID INTERPRETATION 2020-06-21 07:47:00 Jaci Alexis [facility] HB ABO GROUPING 2020-06-21 07:08:00 Mikie Khan [facility] TEST, URINE 2020-06-21 07:04:00 Kathryn Chavarria [facility] URINALYSIS 2020-06-21 07:04:00 Kathryn Khan [facility] URINE CULTURE 2020-06-21 07:04:00 Morelia Khan [facility] US PELVIS COMPLETE WITH TRANSVAGINAL 2020-06-21 06:58:46 Kathryn Khan [facility] CBC WITH DIFF 2020-06-21 06:16:00 Morelia Khan [facility] HOSPITAL ADMISSION 2020-06-20 06:01:00 Doctor Un assigned, Leslie [facility] Encounters Start Date/Time End Date/Time Encounter Type Admission Type Attending [facility] Care Facility Care Department Encounter ID Source 2021-11-01 04:33:00 2021-11-01 04:33:00 Outpatient BETSY_MELI CORINNA [facility] [id number] [facility] 2020-11-13 14:30:00 2020-11-13 14:30:00 Outpatient MILLIE STEARNS [facility] [id number] [facility] 2020-11-09 08:45:00 2020-11-09 08:45:00 Outpatient FARIHA PARKER [facility] [id number] [facility] 2020-11-08 10:15:00 2020-11-08 10:15:00 Outpatient FARIHA PARKER [facility] [id number] [facility] 2020-11-06 09:30:00 2020-11-06 09:30:00 Outpatient Tre FARIHA ADAME [facility] [id number] [facility] 2020-09-14 09:30:00 2020-09-14 09:30:00 Outpatient Tre CHOWYULISAFABRICIOFARIHA [facility] [id number] [facility] 2020-09-11 00:00:00 2020-09-11 00:00:00 Outpatient BERYL IZAGUIRRE [facility] [id number] [facility] 2020-08-03 00:00:00 2020-08-03 00:00:00 Telephone Beryl Alejo [facility] 1..840.114 350.1.13.10 4.2.7.2.686 [id number] [facility] 2020-08-02 08:40:00 2020-08-02 23:59:00 Hospital Encounter Millie Powell [facility] 1..840.114 350.1.13.10 4.2.7.2.686 [id number] [facility] 2020-08-02 00:00:00 2020-08-02 00:00:00 Outpatient MILLIE STEARNS [facility] [id number] [facility] 2020-07-24 07:03:59 2020-07-24 23:59:00 Hospital Encounter Millie Powell [facility] ..840.114 350.1.13.10 [id number] [id number] [facility] 2020-07-24 00:00:00 2020-07-24 00:00:00 Outpatient MILLIE STEARNS [facility] [id number] [facility] 2020-07-12 00:00:00 2020-07-12 00:00:00 Telephone Millie Powell [facility] [id number] [id number] [id number] [id number] 2020-07-12 00:00:00 2020-07-12 00:00:00 Telephone Millie Powell [facility] [id number] [id number] 4.2.7.2.686 [id number] [facility] 2020-07-10 14:29:49 2020-07-10 15:36:46 Office Visit Millie Powell [facility] 1.840.114 [id number] 4.2.7.2.686 [id number] [facility] 2020-07-10 14:00:00 2020-07-10 14:00:00 Outpatient R MILLIE POWELL [facility] [id number] [facility] 2020-07-10 00:00:00 2020-07-10 00:00:00 Orders Only Doctor Unassigned, Leslie [facility] 1.840.114 350.1.13.10 4.2.7.2.686 [id number] [facility] 2020-06-25 00:00:00 2020-06-25 00:00:00 Transition of Care Dixie Baxter 1.840.114 350.1.13.10 4.2.7.2.686 [id number] [facility] 2020-06-20 22:32:00 2020-06-22 15:45:00 Hospital Encounter Aurora Ann [facility] 1.840.114 350.1.13.10 4.2.7.2.686 [id number] [facility] 2020-06-20 22:32:00 2020-06-20 22:32:00 Emergency U AURORA ANN [facility] ERT [id number] [facility] Results Test Description Test Time Test Comments Results Result Co mments Source [id number] 19:54:00* Test Item Value Reference Range Interpretation Comme nts POCT PREG (test code = 1605) Negative On board controls acceptable with C Line (test code = 3574) Yes POCT PREG LOT # (test code = 3575) POCT PREG TEST DATE ( test code = 3576) [facility] [id number] 21:06:00* Test Item Value Reference Range Interpretation Comme nts URINE CULTURE (test code = 630-4) 10,000-100,000 CFU/mL Streptococcus viridans group [facility] - On Postoperative Day # [id number] 11:07:00* Test Item Value Reference Range Interpretation Comme nts WBC (test code = 6690-2) See_Comment [Automated messa ge] The system which generated this result transmitted reference range: 4.30 - 11.10 10*3/?L. The reference range was not used to interpret this result as normal/abnormal. RBC (test code = 789-8) See_Comment L [Automated messa ge] The system which generated this result transmitted reference range: 3.93 - 5.25 10*6/?L. The reference range was not used to interpret this result as normal/abnormal. HGB (test code = 718-7) 7.8 g/dL 11.6-15 L HCT (test code = 4544-3) 24.3 % 35.7-45.2 L MCV (test code = 787-2) 82.4 fL 80.6-95.5 MCH (test code = 785-6) 26.4 pg 25.9-32.8 MCHC (test code = 786-4) 32.1 g/dL 31.6-35.1 RDW-SD (test code = 21870-6) 44.8 fL 39-49.9 RDW-CV (test code = 788-0) 14.9 % 12-15.5 PLT (test code = 777-3) See_Comment [Automated ScoopStakea ge] The system which generated this result transmitted reference range: 166 - 358 10*3/?L. The reference range was not used to interpret this result as normal/abnormal. MPV (test code = 80438-0) 9.9 fL 9.5-12.9 NRBC/100 WBC (test code = 1922500778) See_Comment [Automated MashMango ssage] The system which generated this result transmitted reference range: 0.0 - 10.0 /100 WBCs. The reference range was not used to interpret this result as normal/abnormal. NRBC x10^3 (test code = 9326235787) <0.01 See_Comment [Automated messa ge] The system which generated this result transmitted reference range: 10*3/?L. The reference range was not used to interpret this result as normal/abnormal. GRAN MAT (NEUT) % (test code = 770-8) 60.6 % IMM GRAN % (test code = 2697014869) 0.40 % LYMPH % (test code = 736-9) 32.9 % MONO % (test code = 5905-5) 5.0 % EOS % (test code = 713-8) 0.9 % BASO % (test code = 706-2) 0.2 % GRAN MAT x10^3(ANC) (test code = 5138102807) 5.50 10*3/uL 1.88-7.09 IMM GRAN x10^3 (test code = 9193819607) 0.04 10*3/uL 0-0.06 LYMPH x10^3 (test code = 731-0) 2.98 10*3/uL 1.32-3.29 MONO x10^3 (test code = 742-7) 0.45 10*3/uL 0.33-0.92 EOS x10^3 (test code = 711-2) 0.08 10*3/uL 0.03-0.39 BASO x10^3 (test code = 704-7) <0.03 0.01-0.07 Lab Interpretation (test code = 64365-7) Abnormal [facility] ONLY COVID [id number] 04:44:00COVID DMT InterpretationInterpretation/Recommendations: Molecular NAAT Tests for Active Infection with the SARS-CoV-2 Virus: The patient has currently tested negative for the SARS-CoV-2 virus that causes COVID-19 illness. This most likely indicates that the patient does not have an active infectionwith the SARS-CoV-2 virus. However, infection is not completely ruled out as the false negative rate for molecular NAAT testing using a nasopharyngeal sample can be up to 30%, mostly dependent on thetiming of sample collection in relation to illness [...] COVID-19 testing the patient has had at [facility], including molecular NAAT testing (more commonly known as PCR testing and Rapid ID Now testing) and antibody testing. It does not take into account any testing that a patient has had outside of the [facility] medical record. [facility] LABORATORY SERVICESCOVID LybhrxmLROD-CrT-9 Rapid ID NOW (no units) ? ? Date ? Value ? 06/21/2020 ? Not Detected ? [facility] SERVICESTexas [facility] HospitalCBC WITHOUT [id number] 03:36:00* Test Item Value Reference Range Interpretation Comme nts WBC (test code = 6690-2) See_Comment [Automated message] The system which generated this result transmitted reference range: 4.30 - 11.10 10*3/?L. The reference range was not used to interpret this result as normal/abnormal. RBC (test code = 789-8) See_Comment L [Automated message] The system which generated this result transmitted reference range: 3.93 - 5.25 10*6/?L. The reference range was not used to interpret this result as normal/abnormal. HGB (test code = 718-7) 6.2 g/dL 11.6-15 L HCT (test code = 4544-3) 19.2 % 35.7-45.2 L MCH (test code = 785-6) 26.1 pg 25.9-32.8 MCV (test code = 787-2) 80.7 fL 80.6-95.5 MCHC (test code = 786-4) 32.3 g/dL 31.6-35.1 PLT (test code = 777-3) See_Comment [Automated message] The system which generated this result transmitted reference range: 166 - 358 10*3/?L. The reference range was not used to interpret this result as normal/abnormal. MPV (test code = 95641-1) 10.0 fL 9.5-12.9 RDW-CV (test code = 788-0) 14.6 % 12-15.5 RDW-SD (test code = 29909-2) 42.7 fL 39-49.9 NRBC x10^3 (test code = 6973045154) <0.01 See_Comment [Automated messa ge] The system which generated this result transmitted reference range: 10*3/?L. The reference range was not used to interpret this result as normal/abnormal. NRBC/100 WBC (test code = 4944276370) See_Comment [Automated messa ge] The system which generated this result transmitted reference range: 0.0 - 10.0 /100 WBCs. The reference range was not used to interpret this result as normal/abnormal. IPF % (test code = 3839671770) Lab Interpretation (test code = 11662-6) Abnormal [facility] PELVIS COMPLETE WITH [id number] 15:30:56Thickened endometrium with heterogenous echogenicity with no vascular flow,likely blood products. Otherwise the uterus is unremarkable. Right ovarian cyst measuring 3.1 x 2.1 x 2.6 cm. Left ovary wasnotvisualized. Preliminary Report Dictated by Resident: Yohannes Naik MD., have reviewed this study and agree with theabove report.US PELVIS COMPLETE WITH TRANSVAGINAL HISTORY: 50 years-old; Female; heavy vaginal bleeding COMPARISON: None FINDINGS: UTERUS: The uterus measures 10.0 x 5.6 x 7.0 cm (209 mL). The endometriumis homogeneous and measures 1.3 cm in thickness. OVARIES: The right ovary measures 1.8 x 0.8 x 1.4 cm (1.1 mL). An anechoiccyst measures 3.1 x 2.1 x 2.6 cm. The left ovary is not visualizedtransabdominally or transvaginally. CERVIX: Multiple anechoicnabothian cysts are seen. No ?free fluid. [facility], Radiant Results Inft User - 06/21/2020 9:32 AM CSTUS PELVIS COMPLETE WITH TRANSVAGINALHISTORY: 50 years-old; Female; heavy vaginal bleeding COMPARISON: NoneFINDINGS: UTERUS: The uterus measures 10.0 x 5.6 x 7.0 cm (209 mL). The endometriumis homogeneous and measures 1.3 cm in thickness.OVARIES: The right ovary measures 1.8 x 0.8 x 1.4 cm (1.1 mL). An anechoiccyst measures 3.1 x 2.1 x 2.6 cm. The left ovary is not visualizedtransabdominally or trans vaginally.CERVIX: Multiple anechoic nabothian cysts are seen.No free fluid.IMPRESSIONThickened endometrium with heterogenous echogenicity with no vascular flow,likely blood products. Otherwise the uterus is unremarkable.Right ovarian cyst measuring 3.1 x 2.1 x 2.6 cm. Left ovary was notvisualized.Pr eliminary Report Dictated by Resident: Lj Coronado, Yohannes Carbajal MD., have reviewed this study and agree with theabove report.[facility] WITH [id number] 14:08:00* Test Item Value Reference Range Interpretation Comme nts WBC (test code = 6690-2) See_Comment [Automated messa ge] The system which generated this result transmitted reference range: 4.30 - 11.10 10*3/?L. The reference range was not used to interpret this result as normal/abnormal. RBC (test code = 789-8) See_Comment L [Automated messa ge] The system which generated this result transmitted reference range: 3.93 - 5.25 10*6/?L. The reference range was not used to interpret this result as normal/abnormal. HGB (test code = 718-7) 6.4 g/dL 11.6-15 L HCT (test code = 4544-3) 19.7 % 35.7-45.2 L MCV (test code = 787-2) 79.8 fL 80.6-95.5 L MCH (test code = 785-6) 25.9 pg 25.9-32.8 MCHC (test code = 786-4) 32.5 g/dL 31.6-35.1 RDW-SD (test code = 05549-2) 41.9 fL 39-49.9 RDW-CV (test code = 788-0) 14.4 % 12-15.5 PLT (test code = 777-3) See_Comment [Automated messa ge] The system which generated this result transmitted reference range: 166 - 358 10*3/?L. The reference range was not used to interpret this result as normal/abnormal. MPV (test code = 84317-0) 9.8 fL 9.5-12.9 NRBC/100 WBC (test code = 0348586058) See_Comment [Automated me ssage] The system which generated this result transmitted reference range: 0.0 - 10.0 /100 WBCs. The reference range was not used to interpret this result as normal/abnormal. NRBC x10^3 (test code = 6803601763) <0.01 See_Comment [Automated messa ge] The system which generated this result transmitted reference range: 10*3/?L. The reference range was not used to interpret this result as normal/abnormal. GRAN MAT (NEUT) % (test code = 770-8) 62.3 % IMM GRAN % (test code = 4900005630) 0.30 % LYMPH % (test code = 736-9) 31.8 % MONO % (test code = 5905-5) 4.5 % EOS % (test code = 713-8) 0.8 % BASO % (test code = 706-2) 0.3 % GRAN MAT x10^3(ANC) (test code = 5647671654) 4.72 10*3/uL 1.88-7.09 IMM GRAN x10^3 (test code = 8367374436) <0.03 0-0.06 LYMPH x10^3 (test code = 731-0) 2.41 10*3/uL 1.32-3.29 MONO x10^3 (test code = 742-7) 0.34 10*3/uL 0.33-0.92 EOS x10^3 (test code = 711-2) 0.06 10*3/uL 0.03-0.39 BASO x10^3 (test code = 704-7) <0.03 0.01-0.07 Lab Interpretation (test code = 01269-6) [facility]normal [facility] ([facility] NOW RAPID TESTING)2020-06-21 08:12:00* Test Item Value Reference Range Interpretation Comme nts SARS-CoV-2 Rapid ID NOW (test code = 53003-7) Not Detected Not Detected DAVON (test code = DAVON) ID NOW COVID-19 As say is an isothermal nucleic acid amplification test intended for the qualitative detection of nucleic acid from SARS-CoV-2 viral RNA in nasopharyngeal (CHEF CONCIERGE) specimens. It is used under Emergency Use [...] patient testing if clinically indicated. Lab Interpretation (test code = 23203-1) Normal [facility] Hospital[facility] Screen - ONCE [id number] 07:48:06 * Test Item Value Reference Range Interpretation Comme nts ABO & RH (test code = 20) O POSITIVE Performed at [facility] Laboratory Services - [facility] Blood [address] Free: [phone] No. [id number] IAT (test code = 1185) Negative Performed at [facility] Laboratory [facility] - [facility] Blood [address] Free: [phone] No. [id number] [facility] 07[facility]47:00* Test Item Value Reference Range Interpretation Comme nts APPEARANCE (test code = 5431277435) Cloudy Clear A COLOR (test code = 6090719771) Red Yellow A PH (test code = 7150557552) 4.8-8.0 SP GRAVITY (test code = 4256384017) 1.003-1.030 GLU U QUAL (test code = 3887448961) Normal Normal BLOOD (test code = 7451798436) 3+ Negative A KETONES (test code = 3222727578) Negative Negative PROTEIN (test code = 2887-8) 100 mg/dL Negative A UROBILIN (test code = 7803043577) Normal Normal BILIRUBIN (test code = 7410650757) Negative Negative NITRITE (test code = 2977443799) Negative Negative LEUK PIPE (test code = 8999195999) 25/uL Negative A RBC/HPF (test code = 3142309413) >182 See_Comment H [Automated [employer] ge] The system which generated this result transmitted reference range: 0 - 3 HPF. The reference range was not used to interpret this result as normal/abnormal. WBC/HPF (test code = 4578942573) See_Comment [Automated [employer] ge] The system which generated this result transmitted reference range: 0 - 5 HPF. The reference range was not used to interpret this result as normal/abnormal. BACTERIA (test code = 6595621930) Negative Negative Lab Interpretation (test code = 81683-3) Abnormal [facility], [id number] 07:38:00* Test Item Value Reference Range Interpretation Comme nts PREG URINE (test code = 0951396549) Negative DAVON (test code = DVAON) Less than 20 IU/L. ?If low titer or ectopic is suspected, resubmit specimen in 48-72 hours. [facility] WITH [id number] 06:33:00* Test Item Value Reference Range Interpretation Comme nts WBC (test code = 6690-2) See_Comment [Automated messa ge] The system which generated this result transmitted reference range: 4.30 - 11.10 10*3/?L. The reference range was not used to interpret this result as normal/abnormal. RBC (test code = 789-8) See_Comment L [Automated messa ge] The system which generated this result transmitted reference range: 3.93 - 5.25 10*6/?L. The reference range was not used to interpret this result as normal/abnormal. HGB (test code = 718-7) 7.0 g/dL 11.6-15 L HCT (test code = 4544-3) 21.2 % 35.7-45.2 L MCV (test code = 787-2) 79.4 fL 80.6-95.5 L MCH (test code = 785-6) 26.2 pg 25.9-32.8 MCHC (test code = 786-4) 33.0 g/dL 31.6-35.1 RDW-SD (test code = 98312-5) 40.6 fL 39-49.9 RDW-CV (test code = 788-0) 14.1 % 12-15.5 PLT (test code = 777-3) See_Comment [Automated messa ge] The system which generated this result transmitted reference range: 166 - 358 10*3/?L. The reference range was not used to interpret this result as normal/abnormal. MPV (test code = 34644-5) 10.0 fL 9.5-12.9 NRBC/100 WBC (test code = 2421360010) See_Comment [Automated me ssage] The system which generated this result transmitted reference range: 0.0 - 10.0 /100 WBCs. The reference range was not used to interpret this result as normal/abnormal. NRBC x10^3 (test code = 5564709757) <0.01 See_Comment [Automated messa ge] The system which generated this result transmitted reference range: 10*3/?L. The reference range was not used to interpret this result as normal/abnormal. GRAN MAT (NEUT) % (test code = 770-8) 84.3 % IMM GRAN % (test code = 2234110695) 0.50 % LYMPH % (test code = 736-9) 13.2 % MONO % (test code = 5905-5) 1.8 % EOS % (test code = 713-8) 0.0 % BASO % (test code = 706-2) 0.2 % GRAN MAT x10^3(ANC) (test code = 8683479634) 8.55 10*3/uL 1.88-7.09 H IMM GRAN x10^3 (test code = 7777242726) 0.05 10*3/uL 0-0.06 LYMPH x10^3 (test code = 731-0) 1.34 10*3/uL 1.32-3.29 MONO x10^3 (test code = 742-7) 0.18 10*3/uL 0.33-0.92 L EOS x10^3 (test code = 711-2) <0.03 0.03-0.39 L BASO x10^3 (test code = 704-7) <0.03 0.01-0.07 Lab Interpretation (test code = 81730-0) Abnormal [facility]
[2023-04-16 03:10] LABS: Absolute Lymphocytes (CBC) 3.1 K/uL (0.7-4.9); Hematocrit 36.1 % (36.0-45.0); Lymphocytes % 30.1 % (15.3-44.8); MCV 76.4 fL (80-100); MPV 9.4 fL (7.6-11.3); Platelets 205 thou/uL (152-406); RBC Red Blood Cell Count 4.72 M/uL (3.86-4.86)
[2023-04-16 03:29] LABS: ALT/SGPT 20 U/L (13-56); AST/SGOT 17 U/L (15-37); Albumin 3.4 g/dL (3.4-5.0); Alkaline Phosphatase 116 U/L (45-117); BUN Blood Urea Nitrogen 22 mg/dL (7-18); Bicarbonate 24 mEq/L (21-32); Bilirubin Total 0.2 mg/dL (0.2-1.0); Glomerular Filtration Rate 67 ml/min (=/>90); Glucose Level 132 mg/dL (74-106); Magnesium 1.9 mg/dL (1.6-2.4); NT PRO-BNP 65 pg/mL (<125); Potassium 3.6 mEq/L (3.5-5.1); Protein, Total 7.7 g/dL (6.4-8.2); Sodium Level 138 mEq/L (136-145); Troponin High Sensitivity 5.3 pg/mL (<58.9)
[2023-04-16 03:30] LABS: Bilirubin Direct < 0.1 mg/dL (0-0.2); Bilirubin Indirect, Calculated ND mg/dL (0.2-0.8)
[2023-04-16 03:36] LABS: Specific Gravity 1.007 (1.005-1.030)
[2023-04-16 03:37] LABS: Specific Gravity 1.007 (1.005-1.030); Urine Bacteria None Seen /HPF (<20); Urine Bilirubin NEGATIVE (Negative); Urine Blood 3+ (OVER) (Negative); Urine Clarity Turbid (Clear); Urine Color Colorless (Yellow); Urine Glucose NEGATIVE (Negative); Urine Protein NEGATIVE (Negative); Urine Urobilinogen Normal (Normal); Urine pH 5.5 (5.0-7.0)
[2023-04-16 03:42] LABS: Anisocytosis 1+; Blood Morphology Comment NOTED (NOT SEEN); Ovalocytes 2+; Platelet Estimate ADEQ; White Blood Cell Scan OK (OK)
--- NOTE | 2023-04-16 04:13 | ER ---
Nurse's Notes [facility] Name: Maine Stewart Age: 52 yrs Sex: Female : 1970 Arrival Date: 04/16/2023 Time: 02:21 Bed 7 Private MD: Diagnosis: Chest pain, unspecified;Dyspnea;Bradycardia, unspecified;Cardiac arrhythmia, unspecified Presentation: 04/16 02:37 Chief complaint: Patient states: Around 0200 I took a hot shower and bleached my jb4 bathtub. After that I started having trouble breathing. I yawned and it got a little better. I am still having trouble breathing and a tightness in my left upper chest. Coronavirus screen: At this time, the client does not indicate any symptoms associated with coronavirus-19. Ebola Screen: No symptoms or risks identified at this time. Initial Sepsis Screen: Does the patient meet any 2 criteria? No. Patient's initial sepsis screen is negative. Does the patient have a suspected source of infection? No. Patient's initial sepsis screen is negative. Risk Assessment: Do you want to hurt yourself or someone else? Patient reports no desire to harm self or others. Onset of symptoms was April 16, 2023. Transition of care: patient was not received from another setting of care. 02:37 Method Of Arrival: Ambulatory jb4 02:37 Acuity: BULMARO 3 jb4 Historical: - Allergies: 02:41 Aspirin; jb4 - PMHx: 02:41 Anemia; jb4 - PSHx: 02:41 None; jb4 - Immunization history:: Adult Immunizations up to date. - Social history:: Smoking status: Patient denies any tobacco usage or history of. Screenin:37 [facility] ED Fall Risk Assessment (Adult) History of falling in the last 3 months, tm6 including since admission No falls in past 3 months (0 pts). Abuse screen: Denies threats or abuse. Denies injuries from another. Nutritional screening: No deficits noted. Tuberculosis screening: No symptoms or risk factors identified. Assessment: 02:37 General: Appears uncomfortable, Behavior is calm, cooperative. Pain: Complains of pain tm6 in anterior aspect of right upper chest, anterior aspect of left upper chest and mid-sternal area Pain currently is 8 out of 10 on a pain scale. Quality of pain is described as tight Pain began suddenly, 1 hour ago. Neuro: Level of Consciousness is awake, alert, obeys commands, Oriented to person, place, time, situation. Cardiovascular: Capillary refill < 3 seconds Patient's skin is warm and dry. Respiratory: Airway is patent Respiratory effort is even, labored, Respiratory pattern is regular, symmetrical, Parent/caregiver reports the patient having shortness of breath at rest since 0200. GI: Abdomen is flat, non-distended. : No signs and/or symptoms were reported regarding the genitourinary system. EENT: No signs and/or symptoms were reported regarding the EENT system. Derm: No signs and/or symptoms reported regarding the dermatologic system. Musculoskeletal: No signs and/or symptoms reported regarding the musculoskeletal system. 02:50 Cardiovascular: Heart tones S1 S2 Rhythm is sinus bradycardia. Respiratory: Breath tm6 sounds are clear bilaterally. 03:38 Cardiovascular: Rhythm is irregular. tm6 03:39 Reassessment: Patient appears in no apparent distress at this time. Patient and/or tm6 family updated on plan of care and expected duration. Pain level reassessed. Patient is alert, oriented x 3, equal unlabored respirations, skin warm/dry/pink. 04:32 Reassessment: No changes from previously documented assessment. tm6 05:16 Reassessment: report called to Trever URBINA at [facility] CCU. tm6 05:17 Reassessment: Patient states symptoms have not improved. tm6 Vital Signs: 02:37 BP 152 / 74; Pulse 50; Resp 16; Temp 98.1(O); Pulse Ox 100% on R/A; Weight 58.97 kg jb4 (R); Height 5 ft. 2 in. (R); Pain 8/10; 02:51 BP 152 / 74; Pulse 44; Resp 18; Pulse Ox 100% on R/A; Pain 8/10; tm6 03:39 BP 129 / 62; Pulse 80; Pulse Ox 100% ; tm6 04:31 BP 124 / 66; Pulse 46; Resp 16; Pulse Ox 100% on R/A; tm6 05:17 BP 112 / 60; Pulse 47; Pulse Ox 99% on R/A; tm6 02:37 Body Mass Index 23.78 (58.97 kg, 157.48 cm) jb4 02:37 Pain Scale: Adult jb4 02:51 Pain Scale: Adult tm6 ED Course: 02:24 Patient arrived in ED. gm2 02:25 Oli Fairbanks PA is PHCP. cp 02:25 Oli Ramos MD is Attending Physician. cp 02:33 Nehemiah Valentin, CARLITOS is Primary Nurse. rv 02:37 Patient has correct armband on for positive identification. Bed in low position. Call tm6 light in reach. Side rails up X2. Provided Education on: plan of care. Client placed on continuous cardiac and pulse oximetry monitoring. NIBP monitoring applied. satellite project site monitor on. Door closed. Noise minimized. Lights dimmed. Warm blanket given. 02:37 No provider procedures requiring assistance completed. tm6 02:41 Triage completed. jb4 02:41 Arm band placed on right wrist. jb4 03:07 XRAY Chest (1 view) In Process Unspecified. EDMS 03:09 Inserted saline lock: 20 gauge in right antecubital area, using aseptic technique. vk Blood collected. 03:10 Client placed on continuous cardiac and pulse oximetry monitoring. NIBP monitoring vk applied. satellite project site monitor on. 03:10 COVID-19 SARS RT PCR Sent. vk 03:11 PREGU Sent. vk 03:11 CBC with Diff Sent. vk 03:11 LFT's Sent. vk 03:11 Magnesium Sent. vk 03:11 NT PRO-BNP Sent. vk 03:11 PT-INR Sent. vk 03:11 Troponin HS Sent. vk 04:11 Philly Fine MD is Hospitalizing Provider. lore 04:33 Initiated transfer with Arpita at [facility]. rv1 05:[address] Fine to [address] 16. rv1 05:17 Patient transferred, IV remains in place. tm6 Administered Medications: 03:18 Not Given (Physician Discretion): albuterol2.5 mg Inhalation once cp 03:18 Not Given (Physician Discretion): ipratropiumaerosol 0.5 mg Inhalation once cp 03:25 Drug: Clopidogrel PO 75 mg PO once Route: PO; tm6 Medication: 02:37 VIS not applicable for this client. tm6 Outcome: 04:12 Decision to Hospitalize by Provider. lore 04:21 ER care complete, transfer ordered by . lore 05:16 Transferred by ground EMS to [facility], [facility], tm6 05:16 Condition: unchanged 05:16 Instructed on the need for transfer, 06:50 Patient left the ED. tm6 Signatures: Dispatcher [employer] EDOli Coffey MD MD cha Page, Corey, PA PA cp Bryson, James, RN RN jb4 Nehemiah Valentin RN RN Bhavani Cooper rv1 Hermila Ro 2 Lis Mcknight RN RN tm6 Quiana Abreu Corrections: (The following items were deleted from the chart) 02:44 02:37 Pulse 50bpm; Resp 16bpm; Pulse Ox 100% RA; 58.97 kg Reported; Height 5 ft. 2 in. jb4 Reported; BMI: 23.7; Pain 8/10, Adult; jb4 03:11 03:11 BASIC METABOLIC PANEL+C.LAB.BRZ drawn and sent. vk EDND
--- NOTE | 2023-04-16 04:13 | EDPHYS ---
Physician Documentation [facility] Name: Maine Stewart Age: 52 yrs Sex: Female : 1970 Arrival Date: 04/16/2023 Time: 02:21 Bed 7 Private MD: ED Physician Oli Ramos HPI: 04/16 02:45 This 52 yrs old Female presents to ER via Ambulatory with complaints of cp Shortness Of Breath. 02:45 The patient has shortness of breath at rest. Onset: The symptoms/episode began/occurred cp this morning. Duration: The symptoms are continuous, and are steadily getting worse. Associated signs and symptoms: Pertinent positives: chest pain. 02:45 Patient reports she cleaned shower with bleach this morning and shortly after started cp having shortness of breath. Reports chest pain/pressure. Historical: - Allergies: 02:41 Aspirin; jb4 - PMHx: 02:41 Anemia; jb4 - PSHx: 02:41 None; jb4 - Immunization history:: Adult Immunizations up to date. - Social history:: Smoking status: Patient denies any tobacco usage or history of. ROS: 02:50 Constitutional: Negative for body aches, chills, fever, poor PO intake, cp 02:50 Eyes: Negative for injury, pain, redness, and discharge, cp 02:50 ENT: Negative for drainage from ear(s), ear pain, sore throat, difficulty swallowing, difficulty handling secretions, 02:50 Cardiovascular: Positive for chest pain, Negative for edema, 02:50 Respiratory: Positive for shortness of breath, at rest. Negative for cough, wheezing, 02:50 Abdomen/GI: Negative for abdominal pain, vomiting, diarrhea, constipation, 02:50 Back: Negative for pain at rest, pain with movement, 02:50 Neuro: Negative for altered mental status, headache, loss of consciousness, syncope, near syncope, 02:50 All other systems are negative, Exam: 04:25 Constitutional: This is a well developed, well nourished patient who is awake, alert, lore and in no acute distress. Head/Face: Normocephalic, atraumatic. Eyes: Pupils equal round and reactive to light, extra-ocular motions intact. Lids and lashes normal. Conjunctiva and sclera are non-icteric and not injected. Cornea within normal limits. Periorbital areas with no swelling, redness, or edema. ENT: Nares patent. No nasal discharge, no septal abnormalities noted. Tympanic membranes are normal and external auditory canals are clear. Oropharynx with no redness, swelling, or masses, exudates, or evidence of obstruction, uvula midline. Mucous membranes moist. Neck: Trachea midline, no thyromegaly or masses palpated, and no cervical lymphadenopathy. Supple, full range of motion without nuchal rigidity, or vertebral point tenderness. No Meningismus. Chest/axilla: Normal chest wall appearance and motion. Nontender with no deformity. No lesions are appreciated. Respiratory: Lungs have equal breath sounds bilaterally, clear to auscultation and percussion. No rales, rhonchi or wheezes noted. No increased work of breathing, no retractions or nasal flaring. Abdomen/GI: Soft, non-tender, with normal bowel sounds. No distension or tympany. No guarding or rebound. No evidence of tenderness throughout. Back: No spinal tenderness. No costovertebral tenderness. Full range of motion. Female : Normal external genitalia. Skin: Warm, dry with normal turgor. Normal color with no rashes, no lesions, and no evidence of cellulitis. MS/ Extremity: Pulses equal, no cyanosis. Neurovascular intact. Full, normal range of motion. Neuro: Awake and alert, GCS 15, oriented to person, place, time, and situation. Cranial nerves II-XII grossly intact. Motor strength 5/5 in all extremities. Sensory grossly intact. Cerebellar exam normal. Normal gait. 04:25 Cardiovascular: Rate: actual rate is 45 bpm, Rhythm: irregularly irregular, Pulses: Pulses are 4+ in bilateral radial, brachial, femoral, popliteal, posterior tibial and and dorsalis pedis arteries.. Heart sounds: normal, Edema: is not appreciated, JVD: is not appreciated, 04:25 ECG was reviewed by the Attending Physician. Vital Signs: 02:37 BP 152 / 74; Pulse 50; Resp 16; Temp 98.1(O); Pulse Ox 100% on R/A; Weight 58.97 kg jb4 (R); Height 5 ft. 2 in. (R); Pain 8/10; 02:51 BP 152 / 74; Pulse 44; Resp 18; Pulse Ox 100% on R/A; Pain 8/10; tm6 03:39 BP 129 / 62; Pulse 80; Pulse Ox 100% ; tm6 04:31 BP 124 / 66; Pulse 46; Resp 16; Pulse Ox 100% on R/A; tm6 05:17 BP 112 / 60; Pulse 47; Pulse Ox 99% on R/A; tm6 02:37 Body Mass Index 23.78 (58.97 kg, 157.48 cm) jb4 02:37 Pain Scale: Adult jb4 02:51 Pain Scale: Adult tm6 MDM: 02:32 Patient medically screened. cp 04:27 Differential diagnosis: Anemia CHF exacerbation, Myocardial Infarction pulmonary edema, lore Pulmonary Embolism reactive airway disease, Unstable Angina. Antibiotic administration: Not indicated. Immunization status: Influenza vaccine: within last 5 years. Data reviewed: vital signs, nurses notes, lab test result(s), EKG, radiologic studies, plain films. Consideration of Admission/Observation Escalation of care including admission/observation considered. I considered the following discharge prescriptions or medication management in the emergency department Medications were administered in the Emergency Department. See MAR. Test considered but Not performed: Ultrasound no 2 d echo. Historians other than the Patient: Family Member: sons well informed, nothing to report. Care significantly affected by the following chronic conditions: anemia. Counseling: I had a detailed discussion with the patient and/or guardian regarding the historical points, exam findings, and any diagnostic results supporting the discharge/admit diagnosis, lab results, radiology results, the need to transfer to another facility, for higher level of care, [facility] does not immediately have the required specialist. 04/16 02:40 Order name: Basic Metabolic Panel; Complete Time: 03:43 04/16 03:44 Interpretation: Normal except: CL 108; GLUC 132; BUN 22; GFR 67. 04/16 02:40 Order name: CBC with Diff; Complete Time: 03:43 04/16 02:40 Order name: LFT's; Complete Time: 03:43 04/16 02:40 Order name: Magnesium; Complete Time: 03:43 04/16 02:40 Order name: NT PRO-BNP; Complete Time: 03:43 04/16 02:40 Order name: PT-INR; Complete Time: 04:00 04/16 04:01 Interpretation: Reviewed. 04/16 02:40 Order name: Troponin HS; Complete Time: 03:44 04/16 02:40 Order name: COVID-19 SARS RT PCR; Complete Time: 03:44 04/16 02:41 Order name: Urinalysis W/Microscopic; Complete Time: 03:43 04/16 02:41 Order name: PREGU; Complete Time: 03:44 04/16 03:14 Order name: CBC Smear Scan; Complete Time: 03:44 EDMS 04/16 03:45 Order name: LAB Add On 04/16 03:48 Order name: D-Dimer; Complete Time: 04:00 EDMS 04/16 04:00 Interpretation: Reviewed. 04/16 02:40 Order name: XRAY Chest (1 view) 04/16 02:40 Order name: EKG; Complete Time: 02:41 04/16 02:40 Order name: Cardiac monitoring; Complete Time: 02:46 04/16 02:40 Order name: EKG - Nurse/Tech; Complete Time: 02:46 04/16 02:40 Order name: IV Saline Lock; Complete Time: 02:59 04/16 02:40 Order name: Labs collected and sent; Complete Time: 02:59 04/16 02:40 Order name: O2 Per Protocol; Complete Time: 02:46 04/16 02:40 Order name: O2 Sat Monitoring; Complete Time: 02:46 cp EC:25 Rate is 45 beats/min. Rhythm is irregularly irregular. QRS [place] is Normal. [place] interval lore is normal. QRS interval is normal. QT interval is normal. No Q waves. T waves are Normal. No ST changes noted. Clinical impression: 2nd degree heart block. Interpreted by me. Reviewed by me. Administered Medications: 03:18 Not Given (Physician Discretion): albuterol2.5 mg Inhalation once cp 03:18 Not Given (Physician Discretion): ipratropiumaerosol 0.5 mg Inhalation once cp 03:25 Drug: Clopidogrel PO 75 mg PO once Route: PO; tm6 Disposition: 04:27 Co-signature as Attending Physician, Oli ONEAL I agree with the assessment and lore plan of care. Disposition Summary: 04/16/23 04:21 Transfer Ordered Notes: Transfer Location: [facility] lore Reason: Higher level of care lore Condition: Fair(04/16/23 04:21) lore Problem: new(04/16/23 04:21) lore Symptoms: have improved(04/16/23 04:21) lore Accepting Physician: to cardio sl, ccu(04/16/23 06:50) tm6 Diagnosis - Chest pain, unspecified(04/16/23 04:21) lore - Dyspnea(04/16/23 04:21) lore - Bradycardia, unspecified(04/16/23 04:21) lore - Cardiac arrhythmia, unspecified(04/16/23 04:21) lore Forms: - Medication Reconciliation Form lore - SBAR form lore Signatures: Dispatcher [employer] EDMS Oli Ramos MD MD cha Page, Corey, PA PA cp Bryson, James, RN RN jb4 Lis Mcknight RN RN tm6 Corrections: (The following items were deleted from the chart) 03:11 02:41 BASIC METABOLIC PANEL+C.LAB.BRZ ordered. EDMS EDMS 04:18 04:12 Observation lore lore 04:18 04:12 Fine, Mohammad lore lore 04:18 04:12 Telemetry/MedSurg (observation) lore lore 04:18 04:12 Fair lore lore 04:18 04:12 new lore lore 04:18 04:12 have improved lore lore 04:18 04:12 Standard lore lore 04:18 04:12 lore lore 04:18 04:12 Dyspnea lore lore 04:18 04:12 Chest pain, unspecified lore lore 04:18 04:12 Bradycardia, unspecified lore lore 04:18 04:12 Cardiac arrhythmia, unspecified lore lore 06:50 04:21 to cardio [facility], ccu lore tm6
[2023-04-16 10:17] VITALS: TEMP 98.1
[2023-04-16 10:24] VITALS: BP 112/60
[2023-04-16 10:25] VITALS: O2SAT 99
--- NOTE | 2023-04-16 12:55 | RAD REPORT ---
EXAM DESCRIPTION: RAD - Chest Single View - 04/16/2023 3:05 am CLINICAL HISTORY: The patient is 52 years old and is Female; SOB TECHNIQUE: Frontal view of the chest. COMPARISON: No relevant prior studies available. FINDINGS: Lungs: Unremarkable. No consolidation. Pleural space: Unremarkable. No pneumothorax. Heart: Unremarkable. Mediastinum: Unremarkable. Normal mediastinal contour. Bones/joints: No acute findings. IMPRESSION: No acute findings in the chest. Electronically signed by: Shahab Yepez MD 04/16/2023 04:19 AM SPRING REPAIRER HELPER HAND Due to temporary technical issues with the PACS/Fluency reporting system, reports are being signed by the in house radiologists without review as a courtesy to insure prompt reporting. The interpreting radiologist is fully responsible for the content of the report.
--- NOTE | 2023-04-16 13:18 | EKG ---
Test Date: 2023-04-16 Test Time: 03:11:39 Data Abstractor: MEASUREMENT RESULTS: Intervals: Rate: 45 WI: QRSD: 138 QT: 502 QTc: 434 [place]: P: WI: QRS: 80 T: 43 INTERPRETIVE STATEMENTS: Atrial fibrillation with slow ventricular response with a competing junctional pacemaker Right bundle branch block Abnormal ECG Compared to ECG 04/16/2023 02:42:17 Sinus bradycardia no longer present Atrial premature complex(es) no longer present Electronically Signed On 04-16-23 13:17:51 MULTIFOCAL BUTTON GRINDER by Carlos Nielsen
--- NOTE | 2023-04-16 13:19 | EKG ---
Test Date: 2023-04-16 Test Time: 02:42:17 Receiving Operator: MEASUREMENT RESULTS: Intervals: Rate: 50 MS: 184 QRSD: 146 QT: 504 QTc: 459 [place]: P: 51 MS: 184 QRS: 83 T: 30 INTERPRETIVE STATEMENTS: Sinus bradycardia with premature atrial complexes in a pattern of bigeminy Right bundle branch block Abnormal ECG Compared to ECG 12/31/2019 22:21:08 Atrial premature complex(es) now present Sinus rhythm no longer present Electronically Signed On 04-16-23 13:17:53 AGRICULTURAL EQUIPMENT SALESPERSON by Carlos Nielsen
== END ==
LOC: ER 02:21
DX: R07.9 Chest pain, unspecified (principal); R06.00 Dyspnea, unspecified; R00.1 Bradycardia, unspecified; I49.9 Cardiac arrhythmia, unspecified
CPT/HCPCS: 36415; 71045; 80048; 80076; 81001; 81025; 83735; 83880; 84484; 85025; 85379; 85610; 87635; 93005; 99285; J7613; J7644

== ENCOUNTER → 2023-05-20 | Emergency (ER) | payer SELFPAY ==
[~2023-05-20] MED LIST changes: -ALBUTEROL 2.5 MG/3 ML NEB SOL ONE; -CLOPIDOGREL 75 MG TABLET ONE; +DIAZEPAM 5 MG TABLET ONE; +DIPHENHYDRAMINE 25 MG TAB/CAP ONE; +GUAIFENESIN/DM 5 ML UCUP ONE; -IPRATROPIUM BROM 0.5MG/2.5ML ONE
[2023-05-20 01:46] LABS: Hematocrit 34.1 % (36.0-45.0); Lymphocytes % 28.5 % (15.3-44.8); MCV 77.7 fL (80-100); MPV 8.9 fL (7.6-11.3); Platelets 232 thou/uL (152-406); RBC Red Blood Cell Count 4.39 M/uL (3.86-4.86)
[2023-05-20 02:12] LABS: ALT/SGPT 26 U/L (13-56); AST/SGOT 18 U/L (15-37); Albumin 3.5 g/dL (3.4-5.0); Alkaline Phosphatase 113 U/L (45-117); BUN Blood Urea Nitrogen 8 mg/dL (7-18); Bicarbonate 23 mEq/L (21-32); Bilirubin Total 0.3 mg/dL (0.2-1.0); Glomerular Filtration Rate 95 ml/min (=/>90); Glucose Level 105 mg/dL (74-106); Lipase 74 U/L (13-75); Magnesium 2.1 mg/dL (1.6-2.4); NT PRO-BNP 73 pg/mL (<125); Potassium 3.8 mEq/L (3.5-5.1); Protein, Total 7.9 g/dL (6.4-8.2); Sodium Level 139 mEq/L (136-145)
[2023-05-20 02:13] LABS: Bilirubin Direct < 0.1 mg/dL (0-0.2); Bilirubin Indirect, Calculated ND mg/dL (0.2-0.8)
--- NOTE | 2023-05-20 05:13 | ER ---
Nurse's Notes [facility] Name: Maine Stewart Age: 53 yrs Sex: Female : 1970 Arrival Date: 05/20/2023 Time: 00:51 Bed 7 Private MD: Diagnosis: Anxiety disorder, unspecified;Nasal congestion;Upper airway and nasal congestion;Anxiety attack with dyspnea Presentation: 05/20 01:06 Chief complaint: Patient states: "I've been feeling short of breath for about 3 days vc1 now but tonight is worse. I feel like I have to yawn a lot to get enough oxygen" Patient's son or daughter states: "She's been gasping for air since 9 oclock tonight". Coronavirus screen: Vaccine status: Patient reports receiving the 2nd dose of the covid vaccine. Client denies travel out of the [place] in the last 14 days. difficulty breathing, shortness of breath, Client presents with at least one sign or symptom that may indicate coronavirus-19. Ebola Screen: Patient negative for fever greater than or equal to 101.5 degrees Fahrenheit, and additional compatible Ebola Virus Disease symptoms Patient denies exposure to infectious person. Patient denies travel to an Ebola-affected area in the 21 days before illness onset. No symptoms or risks identified at this time. Initial Sepsis Screen: Does the patient meet any 2 criteria? HR > 90 bpm. No. Patient's initial sepsis screen is negative. Does the patient have a suspected source of infection? No. Patient's initial sepsis screen is negative. Risk Assessment: Do you want to hurt yourself or someone else? Patient reports no desire to harm self or others. Onset of symptoms was May 17, 2023. Activity prior to arrival: None. Mechanism of Injury: No Mechanism of Injury. Transition of care: patient was not received from another setting of care. 01:06 Method Of Arrival: Wheelchair vc1 01:06 Acuity: BULMARO 3 vc1 Triage Assessment: 01:11 General: Appears in no apparent distress. uncomfortable, ill, Behavior is cooperative, vc1 appropriate for age. Pain: Denies pain. EENT: No deficits noted. No signs and/or symptoms were reported regarding the EENT system. Neuro: Level of Consciousness is awake, alert, obeys commands, Oriented to person, place, time, situation, Appropriate for age. Cardiovascular: No deficits noted. Reports shortness of breath, "Chest feels tight". Respiratory: Reports shortness of breath labored breathing Airway is patent Respiratory effort is even, unlabored, Respiratory pattern is regular, symmetrical, the patient has mild shortness of breath. GI: No deficits noted. No signs and/or symptoms were reported involving the gastrointestinal system. : No deficits noted. No signs and/or symptoms were reported regarding the genitourinary system. Derm: No deficits noted. No signs and/or symptoms reported regarding the dermatologic system. Musculoskeletal: No deficits noted. No signs and/or symptoms reported regarding the musculoskeletal system. 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 - Social history:: Smoking status: Patient denies any tobacco usage or history of. - Family history:: not pertinent. Screenin:13 [facility] ED Fall Risk Assessment (Adult) History of falling in the last 3 months, vc1 including since admission No falls in past 3 months (0 pts) Confusion or Disorientation No (0 pts) Intoxicated or Sedated No (0 pts) Impaired Gait No (0 pts) Mobility Assist Device Used No (0 pt) Altered Elimination No (0 pt) Score/Fall Risk Level 0 - 2 = Low Risk Oriented to surroundings, Maintained a safe environment, Educated pt \\T\\ family on fall prevention, incl call for assistance when getting out of bed. Abuse screen: Denies threats or abuse. Nutritional screening: No deficits noted. Tuberculosis screening: No symptoms or risk factors identified. Assessment: :13 General: See triage assessment. vc1 02:00 Reassessment: Patient appears in no apparent distress at this time. No changes from km8 previously documented assessment. Patient and/or family updated on plan of care and expected duration. Pain level reassessed. Patient is alert, oriented x 3, equal unlabored respirations, skin warm/dry/pink. 03:00 Reassessment: Patient appears in no apparent distress at this time. No changes from km8 previously documented assessment. Patient and/or family updated on plan of care and expected duration. Pain level reassessed. Patient is alert, oriented x 3, equal unlabored respirations, skin warm/dry/pink. 04:00 Reassessment: Patient appears in no apparent distress at this time. No changes from km8 previously documented assessment. Patient and/or family updated on plan of care and expected duration. Pain level reassessed. Patient is alert, oriented x 3, equal unlabored respirations, skin warm/dry/pink. 05:00 Reassessment: Patient appears in no apparent distress at this time. No changes from km8 previously documented assessment. Patient and/or family updated on plan of care and expected duration. Pain level reassessed. Patient is alert, oriented x 3, equal unlabored respirations, skin warm/dry/pink. Vital Signs: 01:06 BP 148 / 90; Pulse 98; Resp 20; Pulse Ox 100% ; Weight 63.5 kg; Height 5 ft. 2 in. ; vc1 Pain 0/10; 02:00 BP 130 / 84; Pulse 90; Resp 16; Pulse Ox 100% on 2 lpm NC; km8 02:00 BP 122 / 67; Pulse 70; Resp 16; Pulse Ox 100% on 2 lpm NC; km8 03:00 BP 122 / 67; Pulse 75; Resp 16; Pulse Ox 100% on 2 lpm NC; km8 04:10 BP 114 / 70; Pulse 72; Pulse Ox 100% on R/A; tm6 05:00 BP 122 / 66; Pulse 76; Resp 16; Pulse Ox 100% on 2 lpm NC; km8 01:06 Body Mass Index 25.61 (63.50 kg, 157.48 cm) vc1 01:06 Pain Scale: Adult vc1 [place] Coma Score: 01:16 Eye Response: spontaneous(4). Motor Response: obeys commands(6). Verbal Response: km8 oriented(5). Total: 15. ED Course: 01:06 Patient arrived in ED. vc1 01:09 Triage completed. vc1 01:11 Arm band placed on right wrist. vc1 01:13 Patient has correct armband on for positive identification. Bed in low position. Call vc1 light in reach. Client placed on continuous cardiac and pulse oximetry monitoring. NIBP monitoring applied. 01:15 Inserted saline lock: 20 gauge in right antecubital area, using aseptic technique. km8 Blood collected. 01:15 No provider procedures requiring assistance completed. km8 01:23 Darren Marquis MD is Attending Physician. sp4 01:40 XRAY Chest (1 view) In Process Unspecified. EDMS 02:45 CT Chest For PE Angio In Process Unspecified. EDMS 05:22 Provided Education on: d/c teaching. km8 05:22 IV discontinued, intact, bleeding controlled, No redness/swelling at site. Pressure km8 dressing applied. Administered Medications: 02:25 Drug: Diazepam PO 5 mg PO once Route: PO; km8 05:08 Follow up: Response: No adverse reaction km8 05:22 Drug: Dextromethorphan-Guaifenesin PO Liquid 10 mg-100 mg/5 mL 10 ml PO once Route: PO; km8 05:22 Follow up: Response: Medication administered at discharge. km8 05:22 Drug: diphenhydrAMINE PO 25 mg PO once Route: PO; km8 05:22 Follow up: Response: Medication administered at discharge. km8 Medication: 01:14 VIS not applicable for this client. vc1 Outcome: 05:12 Discharge ordered by . sp4 05:23 Discharged to home ambulatory, with family, km8 05:23 Condition: good 05:23 Discharge instructions given to patient, family, Instructed on discharge instructions, follow up and referral plans. medication usage, Demonstrated understanding of instructions, follow-up care, medications, Prescriptions given X 2, 05:23 Patient left the ED. km8 Signatures: Dispatcher [employer] EDIA Savannah Beltran RN RN vc1 Darren Marquis MD MD sp4 Delores Prince RN RN km8 Lis Mcknight RN RN tm6
--- NOTE | 2023-05-20 05:13 | EDPHYS ---
Physician Documentation [facility] Name: Maine Stewart Age: 53 yrs Sex: Female : 1970 Arrival Date: 05/20/2023 Time: 00:51 Bed 7 Private MD: ED Physician Darren Marquis HPI: 05/20 01:23 This 53 yrs old Female presents to ER via Wheelchair with complaints of sp4 Dyspnea . 05:01 This very pleasant 53-year-old female not on any medications, with history of sp4 symptomatic bradycardia history of pacemaker defibrillator, presents with acute onset shortness of breath for the past 2 days. Patient denies chest pain. Denied cough denied fever.. 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 - Social history:: Smoking status: Patient denies any tobacco usage or history of. - Family history:: not pertinent. ROS: 05:01 Constitutional: Negative for fever, chills, and weight loss, positive for shortness of sp4 breath 05:01 All other systems are negative, Exam: 02:16 ECG was reviewed by the Attending Physician. EKG at 0105 electronic ventricular sp4 pacemaker rate 70 05:04 Constitutional: This is a well developed, well nourished patient who is awake, alert, sp4 and in no acute distress. Head/Face: Normocephalic, atraumatic. Eyes: Pupils equal round and reactive to light, extra-ocular motions intact. Lids and lashes normal. Conjunctiva and sclera are not injected. Cornea within normal limits. Periorbital areas with no swelling, redness, or edema. ENT: Nares patent. No nasal discharge, no septal abnormalities noted. Tympanic membranes are normal and external auditory canals are clear. Oropharynx with no redness, swelling, or masses, exudates, or evidence of obstruction, uvula midline. Mucous membranes moist. Neck: Trachea midline, no thyromegaly or masses palpated, and no cervical lymphadenopathy. Supple, full range of motion without nuchal rigidity, or vertebral point tenderness. Chest/axilla: Normal chest wall appearance and motion. Nontender with no deformity. No lesions are appreciated. Cardiovascular: Regular rate and rhythm with a normal S1 and S2. No gallops, murmurs, or rubs. Normal PMI, no JVD. No pulse deficits. Respiratory: Lungs have equal breath sounds bilaterally, clear to auscultation and percussion. No rales, rhonchi or wheezes noted. No increased work of breathing, no retractions or nasal flaring. Abdomen/GI: Soft, non-tender, with normal bowel sounds. No distension or tympany. No guarding or rebound. No evidence of tenderness throughout. Back: No spinal tenderness. No costovertebral tenderness. Skin: Warm, dry with normal turgor. Normal color with no rashes, no lesions, and no evidence of cellulitis. MS/ Extremity: Pulses equal, no cyanosis. Neurovascular intact. Full, normal range of motion. Neuro: Awake and alert, GCS 15, oriented to person, place, time, and situation. Cranial nerves II-XII grossly intact. Motor strength 5/5 in all extremities. Sensory grossly intact. Psych: Awake, alert, with orientation to person, place and time. Behavior, mood, and affect are within normal limits Vital Signs: 01:06 BP 148 / 90; Pulse 98; Resp 20; Pulse Ox 100% ; Weight 63.5 kg; Height 5 ft. 2 in. ; vc1 Pain 0/10; 02:00 BP 130 / 84; Pulse 90; Resp 16; Pulse Ox 100% on 2 lpm NC; km8 02:00 BP 122 / 67; Pulse 70; Resp 16; Pulse Ox 100% on 2 lpm NC; km8 03:00 BP 122 / 67; Pulse 75; Resp 16; Pulse Ox 100% on 2 lpm NC; km8 04:10 BP 114 / 70; Pulse 72; Pulse Ox 100% on R/A; tm6 05:00 BP 122 / 66; Pulse 76; Resp 16; Pulse Ox 100% on 2 lpm NC; km8 01:06 Body Mass Index 25.61 (63.50 kg, 157.48 cm) vc1 01:06 Pain Scale: Adult vc1 [place] Coma Score: 01:16 Eye Response: spontaneous(4). Motor Response: obeys commands(6). Verbal Response: km8 oriented(5). Total: 15. MDM: 01:25 Patient medically screened. sp4 02:21 ED course: EXAM: XR Chest 1 ViewAP HISTORY: Chest Pain COMPARISON: Chest 1 ViewAP sp4 04/21/2023 report without image CTA chest 01/01/2020 report without image TECHNIQUE: Chest 1 ViewAP FINDINGS: Trachea midline. Heart size and pulmonary vessels within normal limits. Lungs clear without evidence of consolidation, mass, or significant pulmonary edema. No significant pleural effusion or pneumothorax. Bones unremarkable. Cardiac pacemaker with pulse generator overlying left chest wall and lead tips overlying right atrium and right ventricle. IMPRESSION: 1. Unremarkable chest radiograph. 2. Cardiac pacemaker. Electronically signed 05/20/2023. 05:01 ED course: EXAM DESCRIPTION: Chest For Pe Angio 05/20/2023 3:14 AM PUNCH HAND CLINICAL HISTORY: sp4 53 years, Female, DYSPNEA COMPARISON: 12/31/2019 TECHNIQUE: Multiple transaxial tomograms of the chest were obtained from the lung apices through the lung bases utilizing 2 mm slice thickness at 2 mm interval reconstruction after the administration of large bolus of IV contrast for complete opacification of the pulmonary arteries. Subsequent to 2-D and 3-D multiplanar reformats and maximum intensity projection images were generated in the sagittal and coronal planes. An individualized dose optimization technique, Automated Exposure Control, was utilized for the performed procedure. FINDINGS: CTA: The pulmonary arteries are adequately opacified. No evidence of pulmonary emboli or right heart strain. No acute finding in the thoracic aorta. Lungs: The lung parenchyma demonstrate to be clear. No significant pulmonary nodules, masses and/or consolidations. No evidence for pneumothorax. Airways: The trachea mainstem bronchus demonstrate to be within normal limits. Pleura: No evidence for significant pleural effusions. Mediastinum and alma: There is no significant mediastinal and/or hilar lymphadenopathy. The axillary regions demonstrate to be clear. Heart and pericardium: The heart is normal in size. No significant pericardial effusion Vessels: Coronary: No significant coronary artery calcifications. Aorta: The thoracic aorta demonstrate to be within normal limits. No evidence for aneurysm. Other: There is a pacemaker in place via left subclavian. Chest wall: The chest wall demonstrate to be within normal limits. Neck base: No significant finding. Osseous structures and chest wall: The thoracic spine demonstrate to be within normal limits. No evidence for compression deformities and/or significant skeletal lesions. Visualized upper abdomen: The visualized portions of the upper abdomen demonstrate fatty infiltration of the liver. Large upper pole right renal cyst measuring 9.4 x 8.5 cm on image 37 IMPRESSION: No evidence of pulmonary embolism or other acute finding in the thoracic aorta. Fatty infiltration of the liver. Right Bosniak I benign renal cyst measuring 9.4 cm. No follow-up imaging is recommended. . 05:04 Differential Diagnosis altered mental status, sepsis, flu, anxiety . Data reviewed: sp4 vital signs, nurses notes, old medical records, lab test result(s), EKG, radiologic studies, CT scan, plain films. 05:10 Consideration of Admission/Observation Escalation of care including sp4 admission/observation considered. ED course: Patient is unremarkable workup today. CT chest negative, chest x-ray is normal, influenza and COVID and negative. Patient also complains of nasal and throat mucous. Prescribed guaifenesin dextromethorphan combination, also Valium as needed for anxiety. . 05/20 01:24 Order name: Basic Metabolic Panel; Complete Time: 02:15 05/20 01:24 Order name: CBC with Diff; Complete Time: 02:15 05/20 01:24 Order name: LFT's; Complete Time: 02:15 05/20 01:24 Order name: Magnesium; Complete Time: 02:15 05/20 01:24 Order name: NT PRO-BNP; Complete Time: 02:15 05/20 01:24 Order name: PT-INR; Complete Time: 02:15 05/20 01:24 Order name: Troponin HS; Complete Time: 02:15 05/20 01:24 Order name: Lipase; Complete Time: 02:15 05/20 01:27 Order name: COVID-19 SARS RT PCR; Complete Time: 02:15 05/20 01:27 Order name: Influenza Screen (a \T\ B); Complete Time: 02:15 05/20 01:24 Order name: XRAY Chest (1 view) 05/20 01:25 Order name: CT Chest For PE Angio 05/20 01:24 Order name: EKG; Complete Time: 01:25 sp4 05/20 01:24 Order name: Cardiac monitoring; Complete Time: 01:24 sp4 05/20 01:24 Order name: EKG - Nurse/Tech; Complete Time: 01:24 sp4 05/20 01:24 Order name: IV Saline Lock; Complete Time: 01:24 sp4 05/20 01:24 Order name: Labs collected and sent; Complete Time: :24 sp4 05/20 01:24 Order name: O2 Per Protocol; Complete Time: : sp4 05/20 01:24 Order name: O2 Sat Monitoring; Complete Time: :24 sp4 EC:16 Rate is 70 beats/min. Rhythm is regular, Paced. Clinical impression: No evidence of sp4 ischemia. Interpreted by me. Reviewed by me. Administered Medications: 02:25 Drug: Diazepam PO 5 mg PO once Route: PO; [facility] 05:08 Follow up: Response: No adverse reaction [facility] 05:22 Drug: Dextromethorphan-Guaifenesin PO Liquid 10 mg-100 mg/5 mL 10 ml PO once Route: PO; km8 05:22 Follow up: Response: Medication administered at discharge. [facility] 05:22 Drug: diphenhydrAMINE PO 25 mg PO once Route: PO; km8 05:22 Follow up: Response: Medication administered at discharge. [facility] Disposition Summary: 05/20/23 05:12 Discharge Ordered Notes: Location: Home sp4 Problem: new sp4 Symptoms: have improved sp4 Condition: Stable sp4 Diagnosis - Anxiety disorder, unspecified sp4 - Nasal congestion sp4 - Upper airway and nasal congestion sp4 - Anxiety attack with dyspnea sp4 Followup: sp4 - With: Private Physician - When: 7 - 10 days - Reason: Recheck today's complaints Discharge Instructions: - Discharge Summary Sheet sp4 - Panic Attack, [id number] sp4 Forms: - Patient Portal Instructions sp4 Prescriptions: - dextromethorphan-guaifenesin 20-400 mg Oral tablet - take 1 tablet ORAL route every 6 hours PRN cough or congestion; 60 tablet; sp4 Refills: 0, Product Selection Permitted - Valium 5 mg Oral tablet - take 1 tablet ORAL route once daily As needed PRN anxiety; 20 tablet; Refills: sp4 0, Product Selection Permitted Signatures: Dispatcher [employer] Savannah Escobar RN RN vc1 Darren Marquis MD MD sp4 Delores Prince RN RN km8
[2023-05-20 12:53] VITALS: O2SAT 100
[2023-05-20 13:10] VITALS: BP 122/66
--- NOTE | 2023-05-20 13:30 | RAD REPORT ---
EXAM DESCRIPTION: CT - Chest For Pe Angio - 05/20/2023 7:21 am CLINICAL HISTORY: 53 years, Female, DYSPNEA COMPARISON: 12/31/2019 TECHNIQUE: Multiple transaxial tomograms of the chest were obtained from the lung apices through the lung bases utilizing 2 mm slice thickness at 2 mm interval reconstruction after the administration o f large bolus of IV contrast for complete opacification of the pulmonary arteries. Subsequent to 2-D and 3-D multiplanar reformats and maximum intensity projection images were generate d in the sagittal and coronal planes. An individualized dose optimization technique, Automated Exposure Control, was utilized for the perfo rmed procedure. FINDINGS: CTA: The pulmonary arteries are adequately opacified. No evidence of pulmonary emboli or right heart strain. No acute finding in the thoracic aorta. Lungs: The lung parenchyma demonstrate to be clear. No significant pulmonary nodules, masses and/or c onsolidations. No evidence for pneumothorax. Airways: The trachea mainstem bronchus demonstrate to be within normal limits. Pleura: No evidence for significant pleural effusions. Mediastinum and alma: There is no significant mediastinal and/or hilar lymphadenopathy. The axillary regions demonstrate to be clear. Heart and pericardium: The heart is normal in size. No significant pericardial effusion Vessels: Coronary: No significant coronary artery calcifications. Aorta: The thoracic aorta demonstrate to be within normal limits. No evidence for aneurysm. Other: There is a pacemaker in place via left subclavian. Chest wall: The chest wall demonstrate to be within normal limits. Neck base: No significant finding. Osseous structures and chest wall: The thoracic spine demonstrate to be within normal limits. No evid ence for compression deformities and/or significant skeletal lesions. Visualized upper abdomen: The visualized portions of the upper abdomen demonstrate fatty infiltration of the liver. Large upper pole right renal cyst measuring 9.4 x 8.5 cm on image 37 IMPRESSION: No evidence of pulmonary embolism or other acute finding in the thoracic aorta. Fatty infiltration of the liver. Right Bosniak I benign renal cyst measuring 9.4 cm. No follow-up imaging is recommended. JACR 2017; [id number], Management of the Incidental Renal Mass on CT, [employer] 2020; [id number], B osniak Classification of Cystic Renal Masses, Version 2019. Electronically signed by: Chu Nguyen MD 05/20/2023 03:30 AM PRODUCT SAFETY TEST ENGINEER Due to temporary technical issues with the PACS/Fluency reporting system, reports are being signed by the in house radiologist without review as a courtesy to ensure prompt reporting. The interpreting r adiologist is fully responsible for the content of the report.
--- NOTE | 2023-05-20 13:40 | RAD REPORT ---
EXAM DESCRIPTION: RAD - Chest Single View - 05/20/2023 1:39 am CLINICAL HISTORY: Chest Pain COMPARISON: Chest 1 View AP 04/21/2023 report without image CTA chest 01/01/2020 report without image TECHNIQUE: Chest 1 View AP FINDINGS: Trachea midline. Heart size and pulmonary vessels within normal limits. Lungs clear without evidence of consolidation, mass, or significant pulmonary edema. No significant pleural effusion or pneumothorax. Bones unremarkable. Cardiac pacemaker with pulse generator overlying left chest wall and lead tips overlying right atrium and right ventricle. IMPRESSION: 1. Unremarkable chest radiograph. 2. Cardiac pacemaker. Electronically signed by: Jeremy Tran MD 05/20/2023 01:56 AM LEAD PRINTER Due to temporary technical issues with the PACS/Fluency reporting system, reports are being signed by the in house radiologist without review as a courtesy to ensure prompt reporting. The interpreting r adiologist is fully responsible for the content of the report.
--- NOTE | 2023-05-21 13:27 | EKG ---
Test Date: 2023-05-20 Test Time: 01:05:54 Cardiovascular Operating Room Nurse: DIMITRI MEASUREMENT RESULTS: Intervals: Rate: 74 [place]: 164 QRSD: 140 QT: 440 QTc: 488 [place]: P: 70 [place]: 164 QRS: 141 T: 70 INTERPRETIVE STATEMENTS: Electronic ventricular pacemaker Compared to ECG 04/16/2023 03:11:39 Atrial fibrillation no longer present Right bundle-branch block no longer present Electronically Signed On 05-21-23 13:22:55 HOUSE STEWARD/STEWARDESS by Carlos Nielsen
== END ==
LOC: ER 00:51
DX: F41.0 Panic disorder [episodic paroxysmal anxiety] (principal); R09.81 Nasal congestion; Z11.52 Encounter for screening for COVID-19
CPT/HCPCS: 36415; 71045; 71275; 80048; 80076; 83690; 83735; 83880; 84484; 85025; 85610; 87635; 87804; 93005; Q9967

== ENCOUNTER 2023-07-20 19:24 | Emergency (ER) | payer SELFPAY ==
--- NOTE | 2023-07-20 21:20 | RAD REPORT ---
EXAM DESCRIPTION: US - Transvaginal Study Probe - 07/20/2023 8:33 pm CLINICAL HISTORY: Vaginal bleeding COMPARISON: 2020 FINDINGS: The uterus measures 11 x 6 x 6 cm. A fibroid is not seen. The endometrial stripe measures 2.4 centimeters and is somewhat heterogeneous Right ovary is enlarged. It contains 4.2 centimeter cyst. Blood flow is present the right ovary The left ovary not seen secondary to overlying bowel gas The right and left adnexa unremarkable No significant free fluid is seen. IMPRESSION: Thickened endometrium. This could be secondary to neoplasm, polyp or hyperplasia. 4.2 centimeter right ovarian cyst. If the patient is premenopausal then this is a benign functional c yst. No followup imaging recommended. If the patient is postmenopausal then this probably is a benign cyst. Follow-up ultrasound 3 6 months would the recommendation
[2023-07-20 23:13] LABS: Absolute Eosinophils 0.2 K/uL (0-0.5); Absolute Lymphocytes (CBC) 2.2 K/uL (0.7-4.9); Absolute Monocytes 0.5 K/uL (0.1-1.3); Absolute Neutrophil 5.7 K/uL (1.8-8.0); Basophils % 0.5 % (0-1.3); Eosinophils % 1.9 % (0-4.4); Hematocrit 20.1 % (36.0-45.0); Hemoglobin 6.6 g/dL (12.0-15.0); Lymphocytes % 25.3 % (15.3-44.8); MCHC 32.7 g/dL (32.0-36.0); MCV 70.2 fL (80-100); MPV 8.3 fL (7.6-11.3); Monocytes % 5.5 % (3.3-12.3); Neutrophils % 66.8 % (41.7-73.7); Nucleated Red Blood Cells % 0.2 % (0-0); Platelets 278 thou/uL (152-406); RBC Red Blood Cell Count 2.87 M/uL (3.86-4.86); Red Cell Distribution Width 16.7 % (12.1-15.2)
[2023-07-20 23:19] LABS: Anion Gap 7.9 mEq/L (5.0-15.0); Potassium 3.9 mEq/L (3.5-5.1)
[2023-07-20 23:42] LABS: Sqamous Epithelial None Seen /HPF (None Seen); Urine Bacteria None Seen /HPF (<20); Urine Culture Reflex Order REFLEXED; Urine Microscopic Reflex YN ORDER UMIC; Urine RBC >50 /HPF (None Seen)
[2023-07-20 23:43] LABS: Specific Gravity 1.014 (1.005-1.030); Urine Bilirubin Negative (Negative); Urine Clarity Extremely Turbid (Clear); Urine Color Red (Yellow); Urine Glucose Negative (Negative)
[2023-07-20 23:44] LABS: Urine Blood 3+ (OVER) (Negative); Urine Ketones Negative (Negative); Urine Nitrite Negative (Negative); Urine Protein 1+ (Negative); Urine Urobilinogen Normal (Normal)
[2023-07-20] MEDS ORDERED: ONDANSETRON 4 MG/2 ML VIAL ONE (23:49)
[2023-07-21] MEDS ORDERED: NA CHLORIDE 0.9% 250 ML ONE (01:12)
--- NOTE | 2023-07-21 06:26 | ER ---
Nurse's Notes [facility] Name: Maine Stewart Age: 53 yrs Sex: Female : 1970 Arrival Date: 07/20/2023 Time: 19:24 Bed 5 Private MD: Diagnosis: Abnormal uterine and vaginal bleeding, unspecified;Menorrhagia and anemia Presentation: 07/19 19:41 Chief complaint: Patient states: vaginal bleeding for 3 weeks off and on. Coronavirus vc1 screen: At this time, the client does not indicate any symptoms associated with coronavirus-19. Ebola Screen: Patient negative for fever greater than or equal to 101.5 degrees Fahrenheit, and additional compatible Ebola Virus Disease symptoms Patient denies exposure to infectious person. Patient denies travel to an Ebola-affected area in the 21 days before illness onset. No symptoms or risks identified at this time. Initial Sepsis Screen: Does the patient meet any 2 criteria? No. Patient's initial sepsis screen is negative. Does the patient have a suspected source of infection? No. Patient's initial sepsis screen is negative. Risk Assessment: Do you want to hurt yourself or someone else? Patient reports no desire to harm self or others. Onset of symptoms is unknown. Care prior to arrival: None. Activity prior to arrival: None. Mechanism of Injury: No Mechanism of Injury. Transition of care: patient was not received from another setting of care. 19:41 Method Of Arrival: Ambulatory vc1 19:41 Acuity: BULMARO 4 vc1 Triage Assessment: 19:46 General: Appears in no apparent distress. comfortable, Behavior is calm, cooperative, vc1 appropriate for age. Pain: Complains of pain in forehead Pain radiates to left parietal area and right parietal area Pain currently is 8 out of 10 on a pain scale. Quality of pain is described as pressure. EENT: No deficits noted. No signs and/or symptoms were reported regarding the EENT system. Neuro: Level of Consciousness is awake, alert, obeys commands, Oriented to person, place, time, situation, Appropriate for age Reports headache. Cardiovascular: No deficits noted. Respiratory: Airway is patent Respiratory effort is even, unlabored, Respiratory pattern is regular, symmetrical. GI: No deficits noted. No signs and/or symptoms were reported involving the gastrointestinal system. : Reports vaginal bleeding that is with clots, heavy flow off and on for the last month, soaked pad from the house to here. Derm: No deficits noted. No signs and/or symptoms reported regarding the dermatologic system. Musculoskeletal: No deficits noted. No signs and/or symptoms reported regarding the musculoskeletal system. 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 - Infectious Disease History:: Denies. - Social history:: Smoking status: Patient denies any tobacco usage or history of. Screenin:46 Abuse screen: Denies threats or abuse. Nutritional screening: No deficits noted. vc1 Tuberculosis screening: No symptoms or risk factors identified. 22:30 [facility] ED Fall Risk Assessment (Adult) History of falling in the last 3 months, jj7 including since admission No falls in past 3 months (0 pts) Confusion or Disorientation No (0 pts) Intoxicated or Sedated No (0 pts) Impaired Gait No (0 pts) Mobility Assist Device Used No (0 pt) Altered Elimination No (0 pt) Score/Fall Risk Level 0 - 2 = Low Risk Oriented to surroundings, Maintained a safe environment, Educated pt \T\ family on fall prevention, incl call for assistance when getting out of bed. Assessment: 22:30 General: Appears in no apparent distress. comfortable, Behavior is calm, cooperative, jj7 appropriate for age. Pain: Complains of pain in face. Neuro: Reports headache. : Reports vaginal bleeding that is bright red, moderate flow. 04/02 04:03 Reassessment: Patient and/or family updated on plan of care and expected duration. Pain vc1 level reassessed. Patient is alert, oriented x 3, equal unlabored respirations, skin warm/dry/pink. Patient states feeling better. Patient states symptoms have improved. 05:00 Reassessment: No changes from previously documented assessment. Patient and/or family vc1 updated on plan of care and expected duration. Pain level reassessed. Patient is alert, oriented x 3, equal unlabored respirations, skin warm/dry/pink. 05:52 Reassessment: No changes from previously documented assessment. Patient and/or family vc1 updated on plan of care and expected duration. Pain level reassessed. Patient is alert, oriented x 3, equal unlabored respirations, skin warm/dry/pink. 06:40 Reassessment: Patient appears in no apparent distress at this time. No changes from vc1 previously documented assessment. Patient and/or family updated on plan of care and expected duration. Pain level reassessed. Patient is alert, oriented x 3, equal unlabored respirations, skin warm/dry/pink. Vital Signs: 07/19 19:41 BP 153 / 79; Pulse 99; Resp 15; Temp 98.3; Pulse Ox 100% ; Weight 63.5 kg; Height 5 ft. vc1 2 in. ; Pain 0/10; 22:45 BP 123 / 87; Pulse 84; Resp 16; Pulse Ox 100% ; jj7 07/20 00:30 BP 119 / 54; Pulse 79; Resp 17; Pulse Ox 100% on R/A; rv 01:30 BP 109 / 52; Pulse 81; Resp 17; Pulse Ox 100% ; jj7 02:30 BP 115 / 62; Pulse 67; Resp 14; Pulse Ox 100% ; vc1 03:00 BP 112 / 62; Pulse 83; Resp 15; Pulse Ox 100% ; vc1 03:30 BP 120 / 81; Pulse 74; Resp 18; Pulse Ox 100% ; vc1 04:00 BP 119 / 80; Pulse 68; Resp 18; Pulse Ox 100% ; vc1 04:30 BP 108 / 70; Pulse 63; Resp 12; Temp 97; Pulse Ox 100% ; vc1 05:00 BP 109 / 61; Pulse 63; Resp 11; Pulse Ox 100% ; vc1 05:30 BP 105 / 68; Pulse 62; Resp 11; Temp 97; Pulse Ox 100% ; vc1 06:00 BP 115 / 72; Pulse 60; Resp 12; Pulse Ox 100% ; vc1 06:20 BP 116 / 79; Pulse 70; Resp 13; Temp 96.8; Pulse Ox 100% ; vc1 07/19 19:41 Body Mass Index 25.61 (63.50 kg, 157.48 cm) vc1 07/19 19:41 Pain Scale: Adult vc1 [place] Coma Score: 00:30 Eye Response: spontaneous(4). Motor Response: obeys commands(6). Verbal Response: rv oriented(5). Total: 15. ED Course: 07/19 19:26 Patient arrived in ED. jj6 19:26 Brittni Marsh FNP-C [facility]. kb 19:26 Kumar Leslie DO is Attending Physician. kb 19:45 Triage completed. vc1 19:46 Arm band placed on left wrist. vc1 20:35 US Transvaginal Study (Probe) In Process Unspecified. EDMS 22:30 Patient has correct armband on for positive identification. Bed in low position. Call jj7 light in reach. Adult w/ patient. Provided Education on: CALL IRVIN USE. 22:57 Inserted saline lock: 20 gauge in right antecubital area, using aseptic technique. jj7 Blood collected. 23:00 Basic Metabolic Panel Sent. jj7 23:00 CBC with Diff Sent. jj7 23:00 Urinalysis w/ reflexes Sent. jj7 23:55 Type And Screen Sent. jj7 07/20 00:30 No provider procedures requiring assistance completed. rv 01:34 Attending Physician role handed off by Kumar Leslie DO kb 01:34 Darren Marquis MD is Attending Physician. kb 06:26 Samantha Douglass MD is Referral Physician. sp4 06:39 Savannah Beltran, CARLITOS is Primary Nurse. vc1 06:41 IV discontinued, intact, bleeding controlled, No redness/swelling at site. Pressure vc1 dressing applied. Administered Medications: 07/19 23:56 Drug: Ondansetron IVP 4 mg IVP once; over 2 minutes Route: IVP; Site: right antecubital;jj7 07/20 06:46 Follow up: Response: No adverse reaction; Marked relief of symptoms vc1 Medication: 07/19 22:30 VIS not applicable for this client. jj7 Outcome: 07/20 06:26 Discharge ordered by . sp4 06:41 Discharged to home ambulatory, vc1 06:41 Condition: improved 06:41 Discharge instructions given to patient, Instructed on discharge instructions, follow up and referral plans. Demonstrated understanding of instructions, follow-up care, 06:41 Instructed on medication usage, Demonstrated understanding of medications, vc1 Prescriptions given X 1, 06:46 Patient left the ED. vc1 Signatures: Dispatcher [employer] EDMS Brittni Marsh, DEVIN SURVEYOR CHAIN HELPER-CkNehemiah Lee, RN RN rv Gaby Brenner jj6 Savannah Beltran RN RN vc1 Alexander Mariano RN RN jj7 Darren Marquis MD MD sp4
--- NOTE | 2023-07-21 06:27 | EDPHYS ---
Physician Documentation [facility] Name: Maine Stewart Age: 53 yrs Sex: Female : 1970 Arrival Date: 07/20/2023 Time: 19:24 Bed 5 Private MD: ED Physician Darren Marquis HPI: 07/19 22:17 This 53 yrs old Female presents to ER via Ambulatory with complaints of kb Vaginal Bleeding. 22:17 Pt is a 53 year old female who presents for intermittent vaginal bleeding for the last kb 3 weeks. States this happened last month as well. Denies shortness of breath, dizziness. . 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 - Infectious Disease History:: Denies. - Social history:: Smoking status: Patient denies any tobacco usage or history of. ROS: 22:17 Constitutional: As per HPI kb Exam: 22:17 Constitutional: This is a well developed, well nourished patient who is awake, alert, kb and in no acute distress. Head/Face: Normocephalic, atraumatic. ENT: Moist Mucous membranes Cardiovascular: Regular rate Respiratory: Respirations even and unlabored. No increased work of breathing. Talking in full sentences Abdomen/GI: Soft, non-tender. No distention Skin: Warm, dry with normal turgor. Normal color. MS/ Extremity: Pulses equal, no cyanosis. Neurovascular intact. Full, normal range of motion. Neuro: Awake and alert, GCS 15, oriented to person, place, time, and situation. Moves all extremities. Normal gait. Vital Signs: 19:41 BP 153 / 79; Pulse 99; Resp 15; Temp 98.3; Pulse Ox 100% ; Weight 63.5 kg; Height 5 ft. vc1 2 in. ; Pain 0/10; 22:45 BP 123 / 87; Pulse 84; Resp 16; Pulse Ox 100% ; jj7 07/20 00:30 BP 119 / 54; Pulse 79; Resp 17; Pulse Ox 100% on R/A; rv 01:30 BP 109 / 52; Pulse 81; Resp 17; Pulse Ox 100% ; jj7 02:30 BP 115 / 62; Pulse 67; Resp 14; Pulse Ox 100% ; vc1 03:00 BP 112 / 62; Pulse 83; Resp 15; Pulse Ox 100% ; vc1 03:30 BP 120 / 81; Pulse 74; Resp 18; Pulse Ox 100% ; vc1 04:00 BP 119 / 80; Pulse 68; Resp 18; Pulse Ox 100% ; vc1 04:30 BP 108 / 70; Pulse 63; Resp 12; Temp 97; Pulse Ox 100% ; vc1 05:00 BP 109 / 61; Pulse 63; Resp 11; Pulse Ox 100% ; vc1 05:30 BP 105 / 68; Pulse 62; Resp 11; Temp 97; Pulse Ox 100% ; vc1 06:00 BP 115 / 72; Pulse 60; Resp 12; Pulse Ox 100% ; vc1 06:20 BP 116 / 79; Pulse 70; Resp 13; Temp 96.8; Pulse Ox 100% ; vc1 07/19 19:41 Body Mass Index 25.61 (63.50 kg, 157.48 cm) vc1 07/19 19:41 Pain Scale: Adult vc1 Jen Coma Score: 00:30 Eye Response: spontaneous(4). Motor Response: obeys commands(6). Verbal Response: rv oriented(5). Total: 15. MDM: 07/19 19:27 Patient medically screened. kb 22:19 Differential diagnosis: dysmenorrhea, endometriosis, uterine fibroids. Data reviewed: bartolo vital signs, nurses notes. 07/20 01:34 Transition of care: After a detail discussion of the patient's case, care is kb transferred to Darren Marquis MD. 06:25 ED course: Blood transfusion is complete. Patient will be prescribed 1 month course of sp4 Sprintec. Will refer to ELECTROPHYSIOLOGY NURSE PRACTITIONER for consideration of hysterectomy. . 07/19 19:47 Order name: Basic Metabolic Panel; Complete Time: 23:22 kb 07/19 19:47 Order name: CBC with Diff; Complete Time: 23:17 kb 07/19 19:47 Order name: Urinalysis w/ reflexes; Complete Time: 23:45 kb 07/19 23:17 Order name: Type And Screen kb 07/19 23:31 Order name: Packed RBC Leukored [facility] 07/19 23:47 Order name: Urine Culture [facility] 07/19 19:47 Order name: US Transvaginal Study (Probe); Complete Time: 21:22 kb 07/19 19:47 Order name: IV Saline Lock; Complete Time: 23:00 kb 07/19 19:47 Order name: Labs collected and sent; Complete Time: 23:00 kb Administered Medications: 07/19 23:56 Drug: Ondansetron IVP 4 mg IVP once; over 2 minutes Route: IVP; Site: right antecubital;jj7 07/20 06:46 Follow up: Response: No adverse reaction; Marked relief of symptoms vc1 Disposition: 02:09 Co-signature as Attending Physician, Darren Marquis MD I agree with the assessment sp4 and plan of care. I reviewed the patient's care provided by Advanced Practice Provider \T\ agree w/ the diagnosis \T\ care plan. I personally saw the pt \T\ performed a substantive portion of the visit, incldng all aspects of the (History/Exam/Medical Decision Making). Disposition Summary: 07/21/23 06:26 Discharge Ordered Notes: Location: Home sp4 Problem: new sp4 Symptoms: have improved sp4 Condition: Stable sp4 Diagnosis - Abnormal uterine and vaginal bleeding, unspecified sp4 - Menorrhagia and anemia sp4 Followup: kb - With: Emergency Department - When: As needed - Reason: Worsening of condition Followup: kb - With: Samantha Douglass MD - When: 2 - 3 days - Reason: Recheck today's complaints Discharge Instructions: - Discharge Summary Sheet kb - Abnormal Uterine Bleeding, [id number] kb Forms: - Work release form jj7 - Patient Portal Instructions sp4 Prescriptions: - Sprintec (28) 0.25-35 mg-mcg Oral tablet - take 1 tablet ORAL route daily; 1 Pack; Refills: 0, Product Selection Permitted sp4 Signatures: Dispatcher [employer] [facility] Brittni Marsh FNP-C FNP-Ckb Calcote, Vanessa, RN RN vc1 Alexander Mariano RN RN jj7 Darren Marquis MD MD sp4 Corrections: (The following items were deleted from the chart) 07/19 19:47 19:47 Transvaginal Study (Probe)+[email or web address] ordered. EDMS EDMS
[2023-07-21 15:53] VITALS: O2SAT 100
[2023-07-21 16:28] VITALS: BP 116/79; TEMP 96.8
== END 2023-07-21 06:46 | disposition home or self-care (01) ==
LOC: ER 19:24
PROC: 30233N1 Transfusion of Nonautologous Red Blood Cells into Peripheral Vein, Percutaneous Approach (ICD-10-PCS; principal; 2023-07-20)
DX: D64.9 Anemia, unspecified (principal)
CPT/HCPCS: 36415; 76830; 80048; 81001; 85025; 86850; 86900; 86901; 86920; 87086; 87088; 96374; 99284; J2405; J7050; P9016

== ENCOUNTER 2023-08-17 16:43 | Emergency (ER) | payer SELFPAY ==
[2023-08-17 17:22] LABS: Absolute Basophils 0.1 K/uL (0-0.5); Absolute Eosinophils 0.1 K/uL (0-0.5); Absolute Lymphocytes (CBC) 2.1 K/uL (0.7-4.9); Absolute Monocytes 0.4 K/uL (0.1-1.3); Absolute Neutrophil 4.6 K/uL (1.8-8.0); Eosinophils % 1.3 % (0-4.4); Hemoglobin 6.5 g/dL (12.0-15.0); Lymphocytes % 29.3 % (15.3-44.8); MCH 22.8 pg (27.0-35.0); MCHC 32.6 g/dL (32.0-36.0); MCV 70.1 fL (80-100); MPV 8.6 fL (7.6-11.3); Neutrophils % 63.4 % (41.7-73.7); Nucleated Red Blood Cells % 0.2 % (0-0); Platelets 279 thou/uL (152-406); RBC Red Blood Cell Count 2.85 M/uL (3.86-4.86); Red Cell Distribution Width 20.1 % (12.1-15.2)
[2023-08-17] MEDS ORDERED: FAMOTIDINE 20 MG/2 ML VIAL IV ONE (17:26)
[2023-08-17] MEDS ORDERED: NA CHLORIDE 0.9% 1,000 ML ONE (17:27)
[2023-08-17 17:38] LABS: Specific Gravity 1.027 (1.005-1.030); Sqamous Epithelial <5 /HPF (None Seen); Urine Bacteria 20-50 /HPF (<20); Urine Bilirubin NEGATIVE (Negative); Urine Blood 3+ (OVER) (Negative); Urine Clarity Extremely Turbid (Clear); Urine Color Light-Yellow (Yellow); Urine Culture Reflex Order REFLEXED; Urine Glucose NEGATIVE (Negative); Urine Ketones NEGATIVE (Negative); Urine Microscopic Reflex YN ORDER UMIC; Urine Mucus Slight /HPF (None Seen); Urine Nitrite 1+ (Negative); Urine Protein TRACE (Negative); Urine RBC >50 /HPF (None Seen); Urine Urobilinogen Normal (Normal); Urine WBC Clump Rare /HPF (None Seen); Urine Yeast (Budding) Few /HPF (None Seen); Urine pH 6.5 (5.0-7.0)
--- NOTE | 2023-08-17 17:58 | EDPHYS ---
Physician Documentation [facility] Name: Maine Stewart Age: 53 yrs Sex: Female : 1970 Arrival Date: 08/17/2023 Time: 16:43 Bed 13 Private MD: ED Physician Oli Ramos HPI: 08/16 17:46 This 53 yrs old Female presents to ER via Ambulatory with complaints of Chest lore Pain. 17:46 The patient or guardian reports chest pain that is located primarily in the substernal lore area. Onset: 1 day(s) ago. The pain does not radiate. Associated signs and symptoms: Pertinent positives: shortness of breath. The chest pain is described as a heaviness. Modifying factors: The symptoms are alleviated by remaining still, rest, the symptoms are aggravated by activity. Severity of pain: At its worst the pain was moderate in the emergency department the pain has resolved. The patient has experienced similar episodes in the past, several times. 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 - Infectious Disease History:: Denies. - Social history:: Smoking status: Patient denies any tobacco usage or history of. - Family history:: not pertinent. ROS: 17:46 Constitutional: Negative for fever, chills, and weight loss, Eyes: Negative for injury, lore pain, redness, and discharge, ENT: Negative for injury, pain, and discharge, Neck: Negative for injury, pain, and swelling, Respiratory: Negative for shortness of breath, cough, wheezing, and pleuritic chest pain, Abdomen/GI: Negative for abdominal pain, nausea, vomiting, diarrhea, and constipation, Back: Negative for injury and pain, : Negative for injury, bleeding, discharge, and swelling, MS/Extremity: Negative for injury and deformity, Neuro: Negative for headache, weakness, numbness, tingling, and seizure, Psych: Negative for depression, anxiety, suicide ideation, homicidal ideation, and hallucinations, Allergy/Immunology: Negative for hives, rash, and allergies, Endocrine: Negative for neck swelling, polydipsia, polyuria, polyphagia, and marked weight changes, Hematologic/Lymphatic: Negative for swollen nodes, abnormal bleeding, and unusual bruising, 17:46 Cardiovascular: Positive for chest pain, of the chest, 17:46 : Positive for vaginal bleeding, 17:46 Skin: Positive for pallor, Exam: 17:46 Constitutional: This is a well developed, well nourished patient who is awake, alert, lore and in no acute distress. Head/Face: Normocephalic, atraumatic. Eyes: Pupils equal round and reactive to light, extra-ocular motions intact. Lids and lashes normal. Conjunctiva and sclera are non-icteric and not injected. Cornea within normal limits. Periorbital areas with no swelling, redness, or edema. ENT: Nares patent. No nasal discharge, no septal abnormalities noted. Tympanic membranes are normal and external auditory canals are clear. Oropharynx with no redness, swelling, or masses, exudates, or evidence of obstruction, uvula midline. Mucous membranes moist. Neck: Trachea midline, no thyromegaly or masses palpated, and no cervical lymphadenopathy. Supple, full range of motion without nuchal rigidity, or vertebral point tenderness. No Meningismus. Chest/axilla: Normal chest wall appearance and motion. Nontender with no deformity. No lesions are appreciated. Cardiovascular: Regular rate and rhythm with a normal S1 and S2. No gallops, murmurs, or rubs. Normal PMI, no JVD. No pulse deficits. Respiratory: Lungs have equal breath sounds bilaterally, clear to auscultation and percussion. No rales, rhonchi or wheezes noted. No increased work of breathing, no retractions or nasal flaring. Abdomen/GI: Soft, non-tender, with normal bowel sounds. No distension or tympany. No guarding or rebound. No evidence of tenderness throughout. Back: No spinal tenderness. No costovertebral tenderness. Full range of motion. MS/ Extremity: Pulses equal, no cyanosis. Neurovascular intact. Full, normal range of motion. Neuro: Awake and alert, GCS 15, oriented to person, place, time, and situation. Cranial nerves II-XII grossly intact. Motor strength 5/5 in all extremities. Sensory grossly intact. Cerebellar exam normal. Normal gait. Psych: Awake, alert, with orientation to person, place and time. Behavior, mood, and affect are within normal limits. 17:46 Skin: Appearance: Color: pale, Temperature: normal temperature, Moisture: normal moisture, petechiae, not noted, ecchymosis, not noted, abscess, not appreciated, cellulitis, is not appreciated, induration, is not appreciated, no rash present. Vital Signs: 17:07 BP 119 / 55; Pulse 79; Resp 18; Temp 97.9(TE); Pulse Ox 100% on R/A; Weight 63.5 kg; ld1 Height 5 ft. 2 in. ; Pain 0/10; 20:00 BP 112 / 63; Pulse 75; Resp 17; Pulse Ox 100% ; cp4 21:00 BP 116 / 66; Pulse 75; Resp 17; Pulse Ox 100% ; cp4 17:07 Body Mass Index 25.60 (63.50 kg, 157.48 cm) ld1 17:07 Pain Scale: Adult ld1 MDM: 16:57 Patient medically screened. lore 17:49 HEART Score: History: Slightly Suspicious (0), ECG: Non specific repolarization lore disturbance / LBTB / PM (1), Age: > 45 and < 65 years (1), Risk Factors: 1 or 2 risk factors (1), [+ Family HX] [Obesity] Troponin: < or = 1 x Normal Limit (0), Total Score = 3. The patient was not given aspirin in the Emergency Department. Not indicated due to patient's past medical history. Data reviewed: vital signs, nurses notes, lab test result(s), EKG, radiologic studies, plain films, ultrasound. Consideration of Admission/Observation Escalation of care including admission/observation considered. Management of patient was discussed with the following: Hospitalist: hospitalist. Independent interpretation of the following test(s) in the Emergency Department EKG: See my EKG interpretation above. Test considered but Not performed: Ultrasound no 2 d echo. Historians other than the Patient: pt well informed. Care significantly affected by the following chronic conditions: pacemaker. Counseling: I had a detailed discussion with the patient and/or guardian regarding the historical points, exam findings, and any diagnostic results supporting the discharge/admit diagnosis, lab results, radiology results, the need to transfer to another facility, for higher level of care, [facility] does not immediately have the required specialist. 08/16 16:59 Order name: Basic Metabolic Panel; Complete Time: 19:23 [facility] 08/16 16:59 Order name: CBC with Diff; Complete Time: 19:23 [facility] 08/16 16:59 Order name: LFT's; Complete Time: 19:23 [facility] 08/16 16:59 Order name: Magnesium; Complete Time: 19:23 [facility] 08/16 16:59 Order name: NT PRO-BNP; Complete Time: 19:23 [facility] 08/16 16:59 Order name: PT-INR; Complete Time: 18:25 [facility] 08/16 16:59 Order name: Troponin HS; Complete Time: 19:23 [facility] 08/16 16:59 Order name: Lipase; Complete Time: 19:23 [facility] 08/16 16:59 Order name: Urinalysis w/ reflexes; Complete Time: 17:44 [facility] 08/16 17:42 Order name: Urine Culture [facility] 08/16 17:44 Order name: PREGU; Complete Time: 19:23 [facility] 08/16 17:44 Order name: Type And Screen [facility] 08/16 18:11 Order name: Bb Add On 08/16 19:18 Order name: CBC Smear Scan; Complete Time: 19:23 [facility] 08/16 19:58 Order name: Packed RBCs (Additional Unit) [facility] 08/16 16:59 Order name: XRAY Chest (1 view) [facility] 08/16 17:44 Order name: US Transvaginal Study (Probe) [facility] 08/16 16:59 Order name: Cardiac monitoring; Complete Time: 17:04 [facility] 08/16 16:59 Order name: EKG - Nurse/Tech; Complete Time: 20:59 [facility] 08/16 16:59 Order name: IV Saline Lock; Complete Time: 20:59 [facility] 08/16 16:59 Order name: Labs collected and sent; Complete Time: 20:59 [facility] 08/16 16:59 Order name: O2 Per Protocol; Complete Time: 20:59 [facility] 08/16 16:59 Order name: O2 Sat Monitoring; Complete Time: 20:59 [facility] 08/16 17:29 Order name: Labs - recollect needed: green and blue top; Complete Time: 18:07 08/16 18:07 Order name: Transfuse; Complete Time: 20:56 [facility] 08/16 18:42 Order name: Labs - recollect needed: recollect type and screen,kathia pt; Complete bd Time: 19:10 Administered Medications: 17:44 Not Given (Duplicate Order): aspirinchewable tablet 324 mg PO once; 81 mg tablets x 4 lore 18:36 Drug: Famotidine IVP 20 mg IVP once; dilute with 10 mL 0.9% NaCl; give over 2 minutes iw Route: IVP; Site: left antecubital; 21:08 Follow up: Response: No adverse reaction iw 18:36 Drug: NS 0.9% IV 1000 ml IV at 125 ml/hr continuous Route: IV; Rate: 125 ml/hr; Site: iw left antecubital; 18:36 Drug: NS 0.9% IV 500 ml IV at bolus once Route: IV; Rate: bolus; Site: left antecubital;iw 19:00 Follow up: Response: No adverse reaction; IV Status: Completed infusion iw 19:54 Drug: Rocephin IV 1 grams IV at per protocol once; Given slow IV push per pharmacy iw instructions Route: IV; Rate: per protocol; Site: left antecubital; 20:00 Follow up: IV Status: Completed infusion iw Disposition Summary: 08/17/23 17:57 Transfer Ordered Notes: Transfer Location: Other Acute Care Facility lore Reason: Higher level of care lore Condition: Stable lore Problem: an ongoing problem lore Symptoms: have worsened lore Accepting Physician: to [facility] cp, menometrorrhagia(08/17/23 22:08) as6 Diagnosis - Chest pain, unspecified lore - Iron deficiency anemia secondary to blood loss (chronic) lore - Presence of cardiac pacemaker lore - UTI/ Urinary tract infection, site not specified lore Forms: - Medication Reconciliation Form lore - SBAR form lore Signatures: Dispatcher [employer] EDSeda Mendez Corey, MD MD cha Williams, Irene, CARLITOS URBINA iw Trang Leslie RN RN ld1 Néstor Head RN RN as6 Corrections: (The following items were deleted from the chart) 17:00 17:00 BASIC METABOLIC PANEL+C.LAB.BRZ ordered. EDMS EDMS 17:00 17:00 CBC+H.LAB.BRZ ordered. EDMS EDMS 17:00 17:00 HEPATIC FUNCTION+C.LAB.BRZ ordered. EDMS EDMS 17:00 17:00 MAGNESIUM+C.LAB.BRZ ordered. EDMS EDMS 17:00 17:00 PROBNP+C.LAB.BRZ ordered. EDMS EDMS 17:00 17:00 PROTIME (+INR)+COAG.LAB.BRZ ordered. EDMS EDMS 17:00 17:00 Troponin High Sensitivity+C.LAB.BRZ ordered. EDMS EDMS 17:00 17:00 LIPASE+C.LAB.BRZ ordered. EDMS EDMS 17:00 17:00 Urinalysis+U.LAB.BRZ ordered. EDMS EDMS 17:00 17:00 Chest Single View+RAD.RAD.BRZ ordered. EDMS EDMS 18:16 17:57 to [facility] cp, menometrorrhagia lore lore 20:11 18:10 ABO/RH typing ordered. EDMS EDMS 20:11 18:10 Antibody Screen ordered. EDMS EDMS 20:12 18:08 PACKED RBC LEUKORED+BB.LAB.BRZ ordered. EDMS EDMS 22:08 18:16 to [facility] cp, menometrorrhagia lore as6
--- NOTE | 2023-08-17 17:58 | ER ---
Nurse's Notes [facility] Name: Maine Stewart Age: 53 yrs Sex: Female : 1970 Arrival Date: 08/17/2023 Time: 16:43 Bed 13 Private MD: Diagnosis: Chest pain, unspecified;Iron deficiency anemia secondary to blood loss (chronic);Presence of cardiac pacemaker;UTI/ Urinary tract infection, site not specified Presentation: 08/16 17:07 Chief complaint: Patient states: R sided chest pain X 2 days. Coronavirus screen: At ld1 this time, the client does not indicate any symptoms associated with coronavirus-19. Ebola Screen: No symptoms or risks identified at this time. Initial Sepsis Screen: Does the patient meet any 2 criteria? No. Patient's initial sepsis screen is negative. Does the patient have a suspected source of infection? No. Patient's initial sepsis screen is negative. Risk Assessment: Do you want to hurt yourself or someone else? Patient reports no desire to harm self or others. Onset of symptoms was August 17, 2023 at 17:08. 17:07 Method Of Arrival: Ambulatory ld1 17:07 Acuity: BULMARO 3 ld1 Triage Assessment: 17:08 General: Appears in no apparent distress. comfortable, Behavior is calm, cooperative, ld1 appropriate for age. Pain: Complains of pain in chest Pain does not radiate. Quality of pain is described as throbbing, Pain began suddenly, Is continuous. EENT: No signs and/or symptoms were reported regarding the EENT system. Neuro: Level of Consciousness is awake, alert, obeys commands, Oriented to person, place, time, situation. Cardiovascular: Capillary refill < 3 seconds Patient's skin is warm and dry. Rhythm is sinus rhythm. Respiratory: Airway is patent Respiratory effort is even, unlabored. GI: Abdomen is round non-distended. : No signs and/or symptoms were reported regarding the genitourinary system. Derm: No signs and/or symptoms reported regarding the dermatologic system. Musculoskeletal: No signs and/or symptoms reported regarding the musculoskeletal system. 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 - Infectious Disease History:: Denies. - Social history:: Smoking status: Patient denies any tobacco usage or history of. - Family history:: not pertinent. Screenin:25 [facility] ED Fall Risk Assessment (Adult) History of falling in the last 3 months, cp4 including since admission No falls in past 3 months (0 pts) Confusion or Disorientation No (0 pts) Intoxicated or Sedated No (0 pts) Impaired Gait No (0 pts) Mobility Assist Device Used No (0 pt) Altered Elimination No (0 pt) Score/Fall Risk Level 0 - 2 = Low Risk Oriented to surroundings, Maintained a safe environment, Assessed \T\ reinforced patient's understanding of fall precautions, Hourly rounding (assess needs \T\ fall precautionary measures) done. Abuse screen: Denies threats or abuse. Nutritional screening: No deficits noted. Tuberculosis screening: No symptoms or risk factors identified. Assessment: 18:25 General: Appears uncomfortable, Behavior is calm, cooperative, appropriate for age. cp4 Pain: Denies pain. : Reports vaginal bleeding that is heavy flow. Vital Signs: 17:07 BP 119 / 55; Pulse 79; Resp 18; Temp 97.9(TE); Pulse Ox 100% on R/A; Weight 63.5 kg; ld1 Height 5 ft. 2 in. ; Pain 0/10; 20:00 BP 112 / 63; Pulse 75; Resp 17; Pulse Ox 100% ; cp4 21:00 BP 116 / 66; Pulse 75; Resp 17; Pulse Ox 100% ; cp4 17:07 Body Mass Index 25.60 (63.50 kg, 157.48 cm) ld1 17:07 Pain Scale: Adult ld1 ED Course: 16:45 Patient arrived in ED. mr 16:56 Trang Leslie RN is Primary Nurse. ld1 16:57 Oli Ramos MD is Attending Physician. lore 17:08 Triage completed. ld1 17:08 Arm band placed on right wrist. ld1 18:00 XRAY Chest (1 view) In Process Unspecified. EDMS 18:07 Initial lab(s) drawn, by me, sent to lab. Inserted saline lock: 20 gauge in left iw antecubital area, using aseptic technique. Blood collected. 18:25 Placed in gown. Bed in low position. Call light in reach. Side rails up X 1. Client cp4 placed on continuous cardiac and pulse oximetry monitoring. NIBP monitoring applied. nutritional services cook on. 18:25 No provider procedures requiring assistance completed. O2 via room air. cp4 18:33 US Transvaginal Study (Probe) In Process Unspecified. EDMS 19:31 T\T\S collected, blood band applied to patient. cp4 21:07 Provided Education on: Blood Transfusion. cp4 21:10 Spoke with EMS for transport and unable to at this time. 21:13 [facility] will transport with an ETA to [place] \T\ 2145. 22:06 Patient transferred, IV remains in place. cp4 Administered Medications: 17:44 Not Given (Duplicate Order): aspirinchewable tablet 324 mg PO once; 81 mg tablets x 4 lore 18:36 Drug: Famotidine IVP 20 mg IVP once; dilute with 10 mL 0.9% NaCl; give over 2 minutes iw Route: IVP; Site: left antecubital; 21:08 Follow up: Response: No adverse reaction iw 18:36 Drug: NS 0.9% IV 1000 ml IV at 125 ml/hr continuous Route: IV; Rate: 125 ml/hr; Site: iw left antecubital; 18:36 Drug: NS 0.9% IV 500 ml IV at bolus once Route: IV; Rate: bolus; Site: left antecubital;iw 19:00 Follow up: Response: No adverse reaction; IV Status: Completed infusion iw 19:54 Drug: Rocephin IV 1 grams IV at per protocol once; Given slow IV push per pharmacy iw instructions Route: IV; Rate: per protocol; Site: left antecubital; 20:00 Follow up: IV Status: Completed infusion iw Medication: 18:25 VIS not applicable for this client. cp4 Outcome: 17:57 ER care complete, transfer ordered by . lore 22:06 Transferred by ground EMS to [facility], Transfer form cp4 completed. X-rays sent w/ patient. 22:06 Condition: stable 22:06 Instructed on the need for transfer, 22:08 Patient left the ED. as6 Signatures: Dispatcher [employer] Oli Martinez MD MD cha Rivera, Danitza, Reg Reg mr Rachel Bermudez, RN RN Trang Leslie, CARLITOS RN ld1 Maisha Weber Ashby, CARLITOS RN as6 Vielka Camarena 4 Corrections: (The following items were deleted from the chart) 20:11 18:36 Antibody Screen drawn and sent. [facility] 20:11 18:36 ABO/RH typing drawn and sent. [facility] 21:18 20:00 BP 112 / 63; Pulse 75bpm; Resp 17bpm; Pulse Ox 100%; [facility] 21:18 21:00 BP 116 / 66; Pulse 75bpm; Resp 18bpm; Pulse Ox 100%; [facility] 21:42 21:07 Provided Education on: Blood Transfusion, [facility] :43 18:36 BB Add On+BB.LAB.BRZ drawn and sent. [facility] :43 18:36 TYPE AND SCREEN+BB.LAB.BRZ drawn and sent. [facility] :43 21:07 T\T\S collected, blood band applied to patient. [facility]
[2023-08-17 18:20] LABS: PT Prothrombin Time 11.5 SECONDS (9.5-12.5); Protime INR 1.05
[2023-08-17 18:35] LABS: ALT/SGPT 14 U/L (13-56); AST/SGOT 12 U/L (15-37); Albumin 2.7 g/dL (3.4-5.0); Albumin/Globulin Ratio 0.7 (1.1-1.8); Alkaline Phosphatase 89 U/L (45-117); BUN Blood Urea Nitrogen 10 mg/dL (7-18); Bicarbonate 25 mEq/L (21-32); Bilirubin Total 0.2 mg/dL (0.2-1.0); Globulin 3.9 g/dL (2.3-3.5); Glomerular Filtration Rate 95 ml/min (=/>90); Glucose Level 99 mg/dL (74-106); Lipase 53 U/L (13-75); Magnesium 1.9 mg/dL (1.6-2.4); NT PRO-BNP 36 pg/mL (<125); Protein, Total 6.6 g/dL (6.4-8.2); Sodium Level 138 mEq/L (136-145); Troponin High Sensitivity 3.6 pg/mL (<58.9)
[2023-08-17 18:49] LABS: Bilirubin Direct < 0.1 mg/dL (0-0.2); Bilirubin Indirect, Calculated ND mg/dL (0.2-0.8)
[2023-08-17 19:02] LABS: Specific Gravity 1.027 (1.005-1.030)
[2023-08-17] MEDS ORDERED: CEFTRIAXONE 1000 MG/VIAL ONE (19:14)
[2023-08-17 19:17] LABS: White Blood Cell Scan OK (OK)
[2023-08-17 19:18] LABS: Anisocytosis 1+; Blood Morphology Comment NOTED (NOT SEEN); Hypochromasia 1+; Ovalocytes SLIGHT; Platelet Estimate ADEQ; Poikilocytosis SLIGHT; Polychromasia SLIGHT
[2023-08-17] MEDS ORDERED: NA CHLORIDE 0.9% 250 ML ONE (20:06)
--- NOTE | 2023-08-17 20:36 | RAD REPORT ---
EXAM DESCRIPTION: US - Transvaginal Study Probe - 08/17/2023 6:31 pm CLINICAL HISTORY: ABD PAIN COMPARISON: Transvaginal Study Probe dated 07/20/2023 TECHNIQUE: Sonographic grayscale and color flow images of the pelvis were obtained. FINDINGS: The uterus is bulky, measuring 11.7 x 7.2 x 8.2 cm. Mild myometrial heterogeneity, however without focal myometrial lesions. Small nabothian cysts. The endometrial stripe measures 12 mm, overall thickened. No focal suspicious endometrial lesion. Both ovaries could not be visualized due to over shadowing bowel. Allowing for this limitation, no alexander spicious adnexal cysts or masses were visualized. No appreciable pelvic ascites. IMPRESSION: Endometrial stripe measures 12 mm in thickness, which would be considered abnormal if th e patient is postmenopausal. Given the ongoing vaginal bleeding, this would be considered nonspecific in the premenopausal or perimenopausal state. Nonvisualization of both ovaries, which overall limits evaluation.
--- NOTE | 2023-08-17 20:58 | RAD REPORT ---
[facility] DESCRIPTION[facility] 5:58 pm CLINICAL HISTORY: CHEST PAIN COMPARISON: Chest Single View dated 05/20/2023; Chest Single View dated 04/16/2023; Chest Single View dated 12/31/2019Chest Single View dated 05/20/2023; Chest Single View dated 04/16/2023; Chest Single V iew dated 12/31/2019 TECHNIQUE: Portable AP view of the chest. FINDINGS: Left chest wall pacer in place. The lungs are clear. No pneumothorax or effusion. The car diomediastinal contours are unremarkable. IMPRESSION: No acute cardiopulmonary process.
[2023-08-17 22:31] VITALS: BP 116/66; TEMP 97.9; O2SAT 100
--- NOTE | 2023-08-18 14:44 | EKG ---
Test Date: 2023-08-17 Test Time: 17:22:23 Protective Signal Superintendent: PONCHO MEASUREMENT RESULTS: Intervals: Rate: 82 LA: 168 QRSD: 132 QT: 414 QTc: 483 Wilson: P: -8 LA: 168 QRS: 146 T: 109 INTERPRETIVE STATEMENTS: Poor data quality, interpretation may be adversely affected Electronic ventricular pacemaker Compared to ECG 05/20/2023 01:05:54 No significant changes Electronically Signed On 08-18-23 14:43:29 CDT by Carlos Nielsen
== END 2023-08-17 22:08 ==
LOC: ER 16:43
DX: R07.9 Chest pain, unspecified (principal); D50.0 Iron deficiency anemia secondary to blood loss (chronic); N39.0 Urinary tract infection, site not specified; Z95.0 Presence of cardiac pacemaker
CPT/HCPCS: 36415; 71045; 76830; 80048; 80076; 81001; 81025; 83690; 83735; 83880; 84484; 85025; 85610; 86850; 86900; 86901; 86920; 87077; 87086; 87088; 87186; 93005; 96374; 96375; 99285; J0696; J7030; J7050; P9016